=== PATIENT | female | born 1975 | race Caucasian/White ===

== ENCOUNTER 2016-06-23 14:57 | Emergency (ER) | payer MEDICAID ==
[2016-06-23 15:21] VITALS: BP 141/85
[2016-06-23] MEDS ORDERED: DIPHENHYDRAMINE HCL 50 MG CAPSULE PO ONE (15:55)
[2016-06-23] MEDS ORDERED: PROCHLORPERAZINE MALEATE 10 MG TABLET PO ONE (15:55)
[2016-06-23] MEDS ORDERED: KETOROLAC TROMETHAMINE 60 MG/2 ML SDV IM ONE (15:55)
--- NOTE | 2016-06-23 15:57 | ER Document Report ---
ED Medical Screen (RME) - General Chief Complaint: Headache Stated Complaint: HEADACHE Notes: This 41-year-old female patient comes in with him complaining of waking up this morning with blurred vision and her vision was shaky she demonstrates this by moving her hands up and down in front of her eyes. She feels weak. She developed a headache sometime after noon while she was at work. She states she feels weird, not right. 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 She is on chronic pain management and takes Percocet 10 mg 4 times a day for back pain and leg pain. She has never had migraine headache that she knows of. Physical exam shows this to be more of a posterior cervical muscle and skull cap distribution muscle tension headache. TRAVEL OUTSIDE OF THE [place] IN LAST 30 DAYS: No - Related Data Allergies/Adverse Reactions: No Known Allergies Allergy (Verified 06/23/16 15:18) Home Medications: Current Home Medications Gabapentin [Gabapentin] 300 mg PO TID 06/23/16 [History] Omeprazole [Omeprazole] 40 mg PO DAILY 06/23/16 [History] Oxycodone HCl/Acetaminophen [Percocet 10-325 Mg Tablet] 1 each PO Q6 PRN [History] Promethazine HCl 25 mg PO Q8H PRN 06/23/16 [History] Past Medical History - Past Medical History Cardiac Medical History: Reports: Hx Hypertension Pulmonary Medical History: Reports: Hx Asthma, Hx Bronchitis, Hx COPD Endocrine Medical History: Reports: Hx Diabetes Mellitus Type 2 Renal/ Medical History: Reports: Hx Kidney Stones - 2007. Denies: Hx Peritoneal Dialysis Musculoskeltal Medical History: Reports Hx Musculoskeletal Trauma Skin Medical History: Reports Hx Cellulitis, Reports Hx MRSA Psychiatric Medical History: Reports: Hx Anxiety Infectious Medical History: Reports: Hx MRSA Past Surgical History: Reports: Hx Adenoidectomy, Hx Section, Hx Cholecystectomy, Hx Dilation and Curettage, Hx Kidney (Renal Surgery) - Lithotripsy 11/26, Hx Tonsillectomy, Hx Tubal Ligation, Hx Urinary Tract Surgery - Bladder sling - Immunizations Immunizations up to date: Yes Hx Diphtheria, Pertussis, Tetanus Vaccination: Yes - 2007 Physical Exam - Vital signs Vitals: Temp Pulse Resp BP Pulse Ox 98.6 F 96 18 141/85 H 96 06/23/16 15:19 06/23/16 15:19 06/23/16 15:19 06/23/16 15:19 06/23/16 15:19 Course - Vital Signs Vital signs: Temp Pulse Resp BP Pulse Ox 98.6 F 96 18 141/85 H 96 06/23/16 15:19 06/23/16 15:19 06/23/16 15:19 06/23/16 15:19 06/23/16 15:19
--- NOTE | 2016-06-23 16:08 | ER Document Report ---
ED Headache - General Chief Complaint: Headache Stated Complaint: HEADACHE Mode of Arrival: Ambulatory Information source: Patient TRAVEL OUTSIDE OF THE [place] IN LAST 30 DAYS: No - HPI Patient complains to provider of: Headache Patient reports: No: Brain neoplasm, Congenital anomally, Frequent migraines, Hx chronic headaches, Occasional migraines, Prior CVA, Prior neurologic eval, Prior hemorrhage, Prior TBI, [employer] Shunt Onset: This morning Onset was: Abrupt. denies: Thunderclap Timing: Better - INTERMITTENTLY Quality of pain: Dull Severity: Moderate Context: denies: CO exposure, Head injury, Insect bite, Meningitis exposure, Tick bite Preceding symptoms: Visual disturbance - BLURRED, SHIMMERING Associated symptoms: Trouble walking - CHRONIC, H/O TRANSVERSE MYELITIS, NO WORSE THAN USUAL. denies: Lightheaded, Memory loss, Photophobia, Speech problems, Stiff neck Exacerbated by: denies: Light, Noise, Movement, Position Similar symptoms previously: No Recently seen / treated by doctor: No - Related Data Allergies/Adverse Reactions: No Known Allergies Allergy (Verified 06/23/16 15:18) Home Medications: Current Home Medications Gabapentin [Gabapentin] 300 mg PO TID 06/23/16 [History] Omeprazole [Omeprazole] 40 mg PO DAILY 06/23/16 [History] Oxycodone HCl/Acetaminophen [Percocet 10-325 Mg Tablet] 1 each PO Q6 PRN [History] Promethazine HCl 25 mg PO Q8H PRN 06/23/16 [History] Past Medical History - General Information source: Patient - Social History Smoking Status: Unknown if Ever Smoked Frequency of alcohol use: Rare Drug Abuse: None Family History: Arthritis, CAD, CVA, DM, Hyperlipidemia, Hypertension Patient has suicidal ideation: No Patient has homicidal ideation: No - Past Medical History Cardiac Medical History: Reports: Hx Hypertension Pulmonary Medical History: Reports: Hx Asthma, Hx Bronchitis, Hx COPD Endocrine Medical History: Reports: Hx Diabetes Mellitus Type 2 Renal/ Medical History: Reports: Hx Kidney Stones - 2007. Denies: Hx Peritoneal Dialysis Musculoskeltal Medical History: Reports Hx Musculoskeletal Trauma Skin Medical History: Reports Hx Cellulitis, Reports Hx MRSA Psychiatric Medical History: Reports: Hx Anxiety Infectious Medical History: Reports: Hx MRSA Past Surgical History: Reports: Hx Adenoidectomy, Hx Section, Hx Cholecystectomy, Hx Dilation and Curettage, Hx Kidney (Renal Surgery) - Lithotripsy 11/26, Hx Tonsillectomy, Hx Tubal Ligation, Hx Urinary Tract Surgery - Bladder sling - Immunizations Immunizations up to date: Yes Hx Diphtheria, Pertussis, Tetanus Vaccination: Yes - 2007 Physical Exam - Vital signs Vitals: Temp Pulse Resp BP Pulse Ox 98.6 F 96 18 141/85 H 96 06/23/16 15:19 06/23/16 15:19 06/23/16 15:19 06/23/16 15:19 06/23/16 15:19 Interpretation: Hypertensive Course - Re-evaluation Re-evalutation: 06/23/16 18:08 Patient reports headache modestly improved. Results of CT scan discussed. - Vital Signs Vital signs: Temp Pulse Resp BP Pulse Ox 98.6 F 96 18 141/85 H 96 06/23/16 15:19 06/23/16 15:19 06/23/16 15:19 06/23/16 15:19 06/23/16 15:19 - Diagnostic Test Radiology reviewed: Image reviewed, Reports reviewed Discharge - Discharge Clinical Impression: Head ache Qualifiers: Headache type: unspecified Headache chronicity pattern: acute headache Intractability: not intractable Qualified Code(s): R51 - Headache Condition: Stable Disposition: HOME, SELF-CARE Instructions: Headache ([facility]), Use of Diphenhydramine, Oral Narcotic Medication ([facility]) Additional Instructions: REST, DRINK PLENTY OF FLUIDS. YOU MAY TAKE TYLENOL FOR PAIN IF NEEDED, OR FIORICET FOR MORE SEVERE PAIN. FOLLOW UP WITH YOUR PRIMARY CARE PROVIDER IF NOT IMPROVED IN 24-48 HRS. RETURN TO E.R. IF YOU GET WORSE, ANY TIME. Prescriptions: Butalb/Acetaminophen/Caffeine [Fioricet (50-325-40 mg) Tablet] 1 - 2 tab PO Q4H PRN #20 each PRN Reason: For Headache
== END 2016-06-23 18:51 | disposition home or self-care (01) ==
LOC: ER 14:57
DX: R51 Headache (principal); I10 Essential (primary) hypertension; J44.9 Chronic obstructive pulmonary disease, unspecified; E11.9 Type 2 diabetes mellitus without complications; Z87.442 Personal history of urinary calculi; Z86.14 Personal history of Methicillin resistant Staphylococcus aureus infection; Z90.49 Acquired absence of other specified parts of digestive tract; Z98.51 Tubal ligation status
CPT/HCPCS: 99283; 96372; 70450; J3490; J1885; S0183

== ENCOUNTER 2016-09-16 18:01 | Emergency (ER) | payer MEDICAID ==
[2016-09-16 18:14] VITALS: BP 169/100
[2016-09-16] MEDS ORDERED: ACETAMINOPHEN 325 MG TABLET PO ONE (19:07)
--- NOTE | 2016-09-16 19:13 | ER Document Report ---
ED Respiratory Problem - General Chief Complaint: Ear Pain Stated Complaint: COUGH,CHEST CONGESTION Time Seen by Provider: 09/16/16 18:44 Mode of Arrival: Ambulatory Information source: Patient Notes: 41-year-old female presents to ED for cough congestion sore throat bilateral ear pain since Tuesday. She states she has severe pain with cough bilateral ear pain runny nose cough in the urine sputum. She denies any fevers. Skin in full sentences with no acute distress noted. TRAVEL OUTSIDE OF THE [place] IN LAST 30 DAYS: No - HPI Patient complains to provider of: Cough, Other - Runny nose cough congestion bilateral ear pain Onset: Other - And Initiating Event: URI Quality of pain: Burning, Other - sore throat Severity: Moderate Pain Level: 4 Cough: Productive Sputum amount: Moderate Sputum color: Green Sputum consistency: Thick At home treatment: Bronchodilators Associated symptoms: Chest pain/discomfort, Congestion, Cough, Earache, PND, Runny nose, Sinus pain/pressure, Short of breath, Sore Throat. denies: Fever Similar symptoms previously: Yes Recently seen / treated by doctor: No - Related Data Allergies/Adverse Reactions: No Known Allergies Allergy (Verified 09/16/16 18:12) Past Medical History - General Information source: Patient - Social History Smoking Status: Current Every Day Smoker Cigarette use (# per day): Yes - ppd Chew tobacco use (# tins/day): No Smoking Education Provided: Yes - less than 2 min Frequency of alcohol use: None Drug Abuse: None Occupation: none Lives with: Family Family History: Arthritis, CAD, CVA, DM, Hyperlipidemia, Hypertension. denies: Malignancy, Thyroid Disfunction Patient has suicidal ideation: No Patient has homicidal ideation: No - Past Medical History Cardiac Medical History: Reports: Hx Hypertension Pulmonary Medical History: Reports: Hx Asthma, Hx Bronchitis, Hx COPD EENT Medical History: Reports: None Neurological Medical History: Reports: None Endocrine Medical History: Reports: Hx Diabetes Mellitus Type 2 Renal/ Medical History: Reports: Hx Kidney Stones - 2008 Malignancy Medical History: Reports: None GI Medical History: Reports: None Musculoskeltal Medical History: Reports Hx Musculoskeletal Deformity, Reports Hx Musculoskeletal Trauma Skin Medical History: Reports Hx Cellulitis, Reports Hx MRSA Psychiatric Medical History: Reports: Hx Anxiety Traumatic Medical History: Reports: None Infectious Medical History: Reports: Hx MRSA Past Surgical History: Reports: Hx Adenoidectomy, Hx Section, Hx Cholecystectomy, Hx Dilation and Curettage, Hx Kidney (Renal Surgery) - Lithotripsy 11/26, Hx Tonsillectomy, Hx Tubal Ligation, Hx Urinary Tract Surgery - Bladder sling - Immunizations Immunizations up to date: Yes Hx Diphtheria, Pertussis, Tetanus Vaccination: Yes - 2007 Review of Systems - Review of Systems Constitutional: Recent illness EENT: Ear pain, Nose discharge, Sinus discharge, Throat pain Cardiovascular: No symptoms reported Respiratory: Cough, Short of breath, Sputum Gastrointestinal: No symptoms reported Genitourinary: No symptoms reported Female Genitourinary: No symptoms reported Musculoskeletal: No symptoms reported Skin: No symptoms reported Hematologic/Lymphatic: No symptoms reported Neurological/Psychological: No symptoms reported -: Yes All other systems reviewed and negative Physical Exam - Vital signs Vitals: Temp Pulse Resp BP Pulse Ox 98.4 F 96 22 H 169/100 H 96 09/16/16 18:12 09/16/16 18:12 09/16/16 18:12 09/16/16 18:12 09/16/16 18:12 Interpretation: Hypertensive - General General appearance: Appears well, Alert - HEENT Head: Normocephalic, Atraumatic Eyes: Normal Pupils: PERRL Ears: Normal External canal: Normal Tympanic membrane: Normal Sinus: Normal Nasal: Purulent discharge, Swelling Mouth/Lips: Normal Mucous membranes: Normal Pharynx: Erythema, Post nasal drainage Neck: Normal - Respiratory Respiratory status: No respiratory distress Chest status: Nontender, Pain with cough Breath sounds: Productive cough. No: Rales, Rhonchi, Stridor, Wheezing Chest palpation: Normal - Cardiovascular Rhythm: Regular Heart sounds: Normal auscultation Murmur: No - Abdominal Inspection: Normal Distension: No distension Bowel sounds: Normal Tenderness: Nontender Organomegaly: No organomegaly - Back Back: Normal, Nontender - Extremities General upper extremity: Normal inspection, Nontender, Normal color, Normal ROM , Normal temperature General lower extremity: Normal inspection, Nontender, Normal color, Normal ROM , Normal temperature, Normal weight bearing. No: Margo's sign - Neurological Neuro grossly intact: Yes Cognition: Normal Orientation: AAOx4 Collins Coma Scale Eye Opening: Spontaneous Collins Coma Scale Verbal: Oriented Collins Coma Scale Motor: Obeys Commands Collins Coma Scale Total: 15 Speech: Normal Motor strength normal: LUE, RUE, LLE, RLE Sensory: Normal - Psychological Associated symptoms: Normal affect, Normal mood - Skin Skin Temperature: Warm Skin Moisture: Dry Skin Color: Normal Course - Re-evaluation Re-evalutation: 09/16/16 20:31 Chest x-ray with patient and written report given to patient. Patient will be discharged home to follow-up with primary doctor. 09/16/16 20:32 Blood pressure with patient and the need to follow-up with her primary doctor for the blood pressure - Vital Signs Vital signs: Temp Pulse Resp BP Pulse Ox 98.4 F 96 22 H 169/100 H 96 09/16/16 18:12 09/16/16 18:12 09/16/16 18:12 09/16/16 18:12 09/16/16 18:12 - Diagnostic Test Radiology reviewed: Image reviewed, Reports reviewed Discharge - Discharge Clinical Impression: chest wall pain from cough, Otalgia of both ears URI (upper respiratory infection) Qualifiers: URI type: unspecified URI Qualified Code(s): J06.9 - Acute upper respiratory infection, unspecified Condition: Stable Disposition: HOME, SELF-CARE Additional Instructions: UPPER RESPIRATORY ILLNESS: You have a viral infection of the respiratory passages -- a "cold." This common infection causes nasal congestion, drainage, and often sore throat and cough. It is highly contagious. The disease usually lasts about 10 to 14 days. There is no "cure" for the viral infection -- it must run its course. If there is a complication, such as bacterial infection in the nose, sinuses, middle ear, or bronchial tubes, antibiotics may be required. The antibiotics won't affect the virus. Drink plenty of fluids. A humidifier may help. An expectorant medication or decongestant may make you more comfortable. Use acetaminophen or ibuprofen for fever or aches. See the doctor if fever persists over two days, if there is any significant worsening of your symptoms, or if you simply fail to improve as expected. CHEST WALL PAIN: Your chest pain may be coming from the chest wall. This is often caused by straining the muscles or joints in the chest during physical activity, direct trauma, coughing, or vigorous vomiting. Persons with arthritis are especially prone to this type of pain, due to inflammation of the cartilage joints near the breast bone. Occasionally, no cause can be found. Rest from strenuous physical activity. This kind of chest pain is usually made worse by movement of the chest. Depending on the symptoms, we may prescribe medicine for pain, muscle relaxation, and antiinflammatory effects. If the pain is new, and seems to be due to muscle strain, cold packs can help. Otherwise, apply gentle warmth to the painful area for 15 minutes every hour or two. You should call contact the doctor immediately if things change. Further evaluation is needed if you develop a fever or cough, if the nature of the pain changes, or if you become short of breath. USE OF ACETAMINOPHEN (Tylenol): Acetaminophen may be taken for pain relief or fever control. It's much safer than aspirin, offering a wider range of "safe" dosages. It is safe during . Some brand names are Tylenol, Panadol, Datril, Anacin 3, Tempra, and Liquiprin. Acetaminophen can be repeated every four hours. The following are maximum recommended dosages: >89 pounds or adults 650 mg to 900 mg Acetaminophen can be repeated every four hours. Maximum dose not to exceed 4000 mg a day. SMOKING: If you smoke, you should stop smoking. The tar and chemicals in cigarette smoke are harmful. Smoking has been shown to cause: emphysema chronic bronchitis lung cancer mouth and throat cancer stomach and pancreas cancer premature aging defects In addition, smoking increases ear and lung infections in children of smokers. FOLLOW-UP CARE: If you have been referred to a physician for follow-up care, call the physician s office for an appointment as you were instructed or within the next two days. If you experience worsening or a significant change in your symptoms, notify the physician immediately or return to the Emergency Department at any time for re-evaluation. Forms: Elevated Blood Pressure, Smoking Cessation Education
--- NOTE | 2016-09-16 19:24 | RADIOLOGY REPORT (SQ) ---
EXAM DESCRIPTION: CHEST PA/LAT COMPLETED DATE/TIME: 09/16/2016 7:15 pm REASON FOR STUDY: cough congestion COMPARISON: 01/29/2016. EXAM PARAMETERS: NUMBER OF VIEWS: two views TECHNIQUE: Digital Frontal and Lateral radiographic views of the chest acquired. RADIATION DOSE: NA LIMITATIONS: none FINDINGS: LUNGS AND PLEURA: No opacities, masses or pneumothorax. No pleural effusion. MEDIASTINUM AND HILAR STRUCTURES: No masses or contour abnormalities. HEART AND VASCULAR STRUCTURES: Heart normal size. No evidence for failure. BONES: No acute findings. HARDWARE: None in the chest. OTHER: No other significant finding. IMPRESSION: NO SIGNIFICANT RADIOGRAPHIC FINDING IN THE CHEST. TECHNICAL DOCUMENTATION: JOB ID: [id number] [employer]- All Rights Reserved
== END 2016-09-16 20:46 | disposition home or self-care (01) ==
LOC: ER 18:01
DX: J06.9 Acute upper respiratory infection, unspecified (principal); J02.9 Acute pharyngitis, unspecified; H92.03 Otalgia, bilateral; J44.9 Chronic obstructive pulmonary disease, unspecified; R05 Cough; R07.89 Other chest pain; R09.89 Other specified symptoms and signs involving the circulatory and respiratory systems; R06.02 Shortness of breath; E11.9 Type 2 diabetes mellitus without complications; I10 Essential (primary) hypertension; F17.210 Nicotine dependence, cigarettes, uncomplicated; Z71.6 Tobacco abuse counseling; Z86.14 Personal history of Methicillin resistant Staphylococcus aureus infection
CPT/HCPCS: 99283; 71020; J3490

== ENCOUNTER 2017-02-23 01:31 | Emergency (ER) | payer MEDICAID ==
[2017-02-23] MEDS ORDERED: ONDANSETRON 4 MG TAB.RAPDIS PO ONE (03:30)
[2017-02-23 03:36] LABS: APPEARANCE,URINE SLIGHTLY-CLOUDY; BILIRUBIN,URINE NEGATIVE (NEGATIVE); GLUCOSE, URINE NEGATIVE (NEGATIVE); KETONES,URINE NEGATIVE (NEGATIVE); LEUKOCYTE ESTERASE,URINE NEGATIVE (NEGATIVE); NITRITE,URINE NEGATIVE (NEGATIVE); PROTEIN,URINE NEGATIVE (NEGATIVE); URINE SPECIFIC GRAVITY 1.019; UROBILINOGEN,URINE NEGATIVE mg/dL (<2.0)
[2017-02-23 03:37] LABS: RBC,URINE 0-1 /HPF; WBC,URINE 0-1 /HPF
--- NOTE | 2017-02-23 03:52 | ER Document Report ---
ED GI/ - General TRAVEL OUTSIDE OF THE [place] IN LAST 30 DAYS: No <SACHA KIMBALL - Last Filed: 02/23/17 07:17> <ZOYA SMITH - Last Filed: 02/23/17 09:04> - General Chief Complaint: Abdominal Pain Stated Complaint: ABDOMINAL PAIN Time Seen by Provider: 02/23/17 03:24 Notes: Patient is a 41 year old female that comes to the ED for chief complaint of nausea and lower abdominal pain. She states that she started feeling nauseated yesterday, started feeling some abdominal pain last night, this worsened today. She denies vomiting, she has had normal bowel movements, she denies dysuria, vaginal bleeding or discharge. She states she feels some radiation around to her lower back. Past medical history of kidney stones, tubal ligation, cholecystectomy, hypertension, ovarian cysts. (SACHA KIMBALL) - Related Data Allergies/Adverse Reactions: No Known Allergies Allergy (Verified 02/23/17 04:07) Past Medical History - General Information source: Patient - Social History Smoking Status: Never Smoker Frequency of alcohol use: None Drug Abuse: None Lives with: Family Family History: Arthritis, CAD, CVA, DM, Hyperlipidemia, Hypertension. denies: Malignancy, Thyroid Disfunction Patient has suicidal ideation: No Patient has homicidal ideation: No - Past Medical History Cardiac Medical History: Reports: Hx Hypertension Pulmonary Medical History: Reports: Hx Asthma, Hx Bronchitis, Hx COPD Endocrine Medical History: Reports: Hx Diabetes Mellitus Type 2 Renal/ Medical History: Reports: Hx Kidney Stones - 2007. Denies: Hx Peritoneal Dialysis Musculoskeltal Medical History: Reports Hx Musculoskeletal Deformity, Reports Hx Musculoskeletal Trauma Skin Medical History: Reports Hx Cellulitis, Reports Hx MRSA Psychiatric Medical History: Reports: Hx Anxiety Infectious Medical History: Reports: Hx MRSA Past Surgical History: Reports: Hx Adenoidectomy, Hx Section, Hx Cholecystectomy, Hx Dilation and Curettage, Hx Kidney (Renal Surgery) - Lithotripsy 11/26, Hx Tonsillectomy, Hx Tubal Ligation, Hx Urinary Tract Surgery - Bladder sling - Immunizations Immunizations up to date: Yes Hx Diphtheria, Pertussis, Tetanus Vaccination: Yes - 2007 <SACHA KIMBALL - Last Filed: 02/23/17 07:17> Review of Systems - Review of Systems Constitutional: No symptoms reported EENT: No symptoms reported Cardiovascular: No symptoms reported Respiratory: No symptoms reported Gastrointestinal: See HPI Genitourinary: See HPI Female Genitourinary: See HPI Musculoskeletal: No symptoms reported Skin: No symptoms reported Hematologic/Lymphatic: No symptoms reported Neurological/Psychological: No symptoms reported <KRISTANVICENTEROCSACHA Iban Filed: 02/23/17 07:17> Physical Exam - Vital signs Interpretation: Normal - General General appearance: Appears well, Alert In distress: None - HEENT Head: Normocephalic, Atraumatic Eyes: Normal Pupils: PERRL - Respiratory Respiratory status: No respiratory distress Chest status: Nontender Breath sounds: Normal. No: Decreased air movement, Wheezing Chest palpation: Normal - Cardiovascular Rhythm: Regular. No: Tachycardia Heart sounds: Normal auscultation, S1 appreciated, S2 appreciated Murmur: No - Abdominal Inspection: Normal Distension: No distension. No: Distended Bowel sounds: Normal Tenderness: Tender - There is tenderness in the right lower quadrant, right suprapubic and right pelvic area. There is moderate tenderness without specific guarding, no rebound tenderness, no specific McBurney's point tenderness. Organomegaly: No organomegaly - Back Back: Normal, Nontender. No: Tender, CVA tenderness - Extremities General upper extremity: Normal inspection, Nontender, Normal strength, Normal temperature General lower extremity: Normal inspection, Nontender, Normal strength, Normal temperature - Neurological Neuro grossly intact: Yes Cognition: Normal Orientation: AAOx4 [place] Coma Scale Eye Opening: Spontaneous Isra Coma Scale Verbal: Oriented [place] Coma Scale Motor: Obeys Commands Isra Coma Scale Total: 15 Speech: Normal Motor strength normal: LUE, RUE, LLE, RLE Sensory: Normal - Psychological Associated symptoms: Normal affect, Normal mood - Skin Skin Temperature: Warm Skin Moisture: Dry Skin Color: Normal <ROC KIMBALLAN Iban Filed: 02/23/17 07:17> - Vital signs Vitals: Temp Pulse Resp BP Pulse Ox 98.3 F 84 16 137/72 H 99 02/23/17 01:59 02/23/17 01:59 02/23/17 01:59 02/23/17 01:59 02/23/17 01:59 Course - Laboratory Result Diagrams: 02/23/17 03:45 02/23/17 03:45 <ROC KIMBALLAN Iban Danny Filed: 02/23/17 07:17> - Laboratory Result Diagrams: 02/23/17 03:45 02/23/17 03:45 <ZOYA SMITH - Last Filed: 02/23/17 09:04> - Re-evaluation Re-evalutation: On examination there is right lower quadrant and mid lower quadrant tenderness, appears to be more pelvic than abdominal in nature, patient is obese and this limits the exam slightly. She is nondistressed. There is no significant guarding or rebound tenderness. No flank pain. At this time I suspect a pelvic source, ultrasound will be performed to rule out large ovarian cyst. Lab work pending. Lab work shows leukocytosis at 20,000 with no bandemia or significant shift. Urinalysis unremarkable, chemistry unremarkable, hCG is negative. Ultrasound showing no acute abnormality. Patient reexamined, she still has right lower tenderness, still appears to be lower than McBurney's point although this is still limited by patient's size. Because of ongoing pain, developing pain since yesterday, leukocytosis, normal ultrasound discussed with patient. CAT scan will be performed to rule out appendicitis or other acute abdominal abnormality. Patient has been kept n.p.o., she states she has not really eaten anything today because of nausea, not had anything since this morning ( yesterday morning). 02/23/17 07:10 Patient introduced to Pita Smith PA-C pending results and disposition. Patient continues to be well-appearing. (SACHA KIMBALL) 02/23/17 09:01 CT scan abd/pelv was unremarkable. Pt states she is feeling better. Exam unremarkable. I will send her home with a norco dispense pack and zofran with strict return precautions and obs for appendicitis. Pt to have reevaluation with PCM in 3-5 days Consider consult with narcotics and/or vice detective Return to the ED with any worsening/concerning symptoms otherwise as reviewed in discharge. Patient is in agreement. (ZOYA SMITH) - Vital Signs Vital signs: Temp Pulse Resp BP Pulse Ox 98.1 F 84 18 125/65 96 02/23/17 06:00 02/23/17 01:59 02/23/17 08:19 02/23/17 08:19 02/23/17 08:19 - Laboratory Laboratory results interpreted by me: 02/23/17 03:45 WBC 20.7 H RDW 15.5 H Abs Neuts (Manual) 12.8 H Abs Lymphs (Manual) 6.2 H Discharge <SACHA KIMABLL - Last Filed: 02/23/17 07:17> <ZOYA SMITH - Last Filed: 02/23/17 09:04> - Discharge Clinical Impression: Unspecified abdominal pain Qualifiers: Abdominal location: lower abdomen, unspecified Qualified Code(s): R10.30 - Lower abdominal pain, unspecified Condition: Stable Disposition: HOME, SELF-CARE Instructions: Abdominal Pain ([facility]), Oral Narcotic Medication ([facility]), Observation for Appendicitis ([facility]) Additional Instructions: Maintain adequate fluid and food intake [place] diet ([facility] Bananas, rice, apples, toast, etc Zofran as needed tylenol if needed Monitor for any worsening symptoms Make sure you are staying hydrated enough to urinate and have normal BM's Recheck with your PCM in 3-5 days Consider consult with Gastroenterology/hematology/general surgery for ongoing/ worsening symptoms Return to the ED with any worsening symptoms and/or development of fever, headache, chest pain, palpitations, syncope, shortness of breath, trouble breathing, abdominal pain, n/v/d, blood in stool/urine, weakness, or other worsening symptoms that are concerning to you. Prescriptions: Ondansetron [Zofran Odt 4 mg Tablet] 1 - 2 tab PO Q4H PRN #15 tab.rapdis PRN Reason: For Nausea/Vomiting Referrals: RIGO SARAH DO [Primary Care Provider] - Follow up in 3-5 days ELE EWING MD [ACTIVE STAFF] - Follow up as needed
[2017-02-23 04:03] LABS: HEMATOCRIT 42.5 % (36.0-47.0); HEMOGLOBIN 14.5 g/dL (12.0-15.5); MEAN CORPUSCULAR HEMOGLOBIN 30.2 pg (27.0-33.4); MEAN CORPUSCULAR HGB CONC 34.1 g/dL (32.0-36.0); MEAN CORPUSCULAR VOLUME 89 fl (80-97); RED CELL DISTRIBUTION WIDTH 15.5 % (11.5-14.0); WHITE BLOOD COUNT 20.7 10^3/uL (4.0-10.5)
[2017-02-23 04:07] LABS: ALANINE AMINOTRANSFERASE 28 U/L (9-52); ALBUMIN 3.8 g/dL (3.5-5.0); ALKALINE PHOSPHATASE 96 U/L (38-126); ANION GAP 12 (5-19); ASPARTATE AMINO TRANSFERASE 20 U/L (14-36); BILIRUBIN,DIRECT 0.2 mg/dL (0.0-0.4); BILIRUBIN,TOTAL 0.3 mg/dL (0.2-1.3); BLOOD UREA NITROGEN 14 mg/dL (7-20); CALCIUM 9.1 mg/dL (8.4-10.2); CARBON DIOXIDE 25 mmol/L (22-30); CHLORIDE 103 mmol/L (98-107); CREATININE RESULT 0.74 mg/dL (0.52-1.25); GLUCOSE 102 mg/dL (75-110); POTASSIUM 4.2 mmol/L (3.6-5.0); SODIUM 139.9 mmol/L (137-145); TOTAL PROTEIN 6.7 g/dL (6.3-8.2)
[2017-02-23 04:32] LABS: ABSOLUTE EOSINOPHILS# (MANUAL) 0.4 10^3/uL (0.0-0.6); ANISOCYTOSIS SLIGHT; BASOPHILS % (MANUAL) 0 % (0-2); EOSINOPHILS % (MANUAL) 2 % (0-6); LYMPHOCYTES % (MANUAL) 30 % (13-45); OVALOCYTES SLIGHT; POIKILOCYTOSIS SLIGHT; TOTAL CELLS COUNTED 100; TOXIC GRANULATION SLIGHT
[2017-02-23 04:33] LABS: TEAR DROP CELLS SLIGHT
--- NOTE | 2017-02-23 04:56 | RADIOLOGY REPORT (SQ) ---
EXAM DESCRIPTION: U/S NON OB PEL TV W/DOPPLER CLINICAL HISTORY: 41 years, Female, right pelvic pain, nausea, hx ovarian cysts COMPARISON: 12/25/2014. TECHNIQUE: Transvaginal. LIMITATIONS: None. FINDINGS: 9.7 cm uterus with likely anteroinferior scar, 1.5 cm endometrial stripe thickness, nabothian cysts, 3.1 cm cervical length, 2.9 cm right ovary and left ovarian fossa appear otherwise normal size, shape, echotexture, and vascularity. No significant free fluid. Left ovary is not directly visualized. IMPRESSION: No acute findings. 2010 [employer]- All Rights Reserved
[2017-02-23] MEDS ORDERED: NORMAL SALINE 1000 ML 1,000 ML IV ONE (05:22)
[2017-02-23] MEDS ORDERED: MORPHINE SULFATE 10 MG/ML INJ IV ONE ×2 (05:23→07:43)
[2017-02-23] MEDS ORDERED: ONDANSETRON HCL INJ/PF 4 MG/2 ML SDV IV ONE (06:21)
--- NOTE | 2017-02-23 08:21 | RADIOLOGY REPORT (SQ) ---
EXAM DESCRIPTION: CT ABD/PELVIS WITH IV ORAL COMPLETED DATE/TIME: 02/23/2017 8:07 am REASON FOR STUDY: RLQ pain, leukocytosis, nausea COMPARISON: 2010. Pelvic ultrasound from earlier. TECHNIQUE: CT scan of the abdomen and pelvis performed with intravenous and oral contrast using burke roberto scanning technique with dynamic intravenous contrast injection. Images reviewed with lung, soft t issue, and bone windows. Reconstructed coronal and sagittal MPR images reviewed. Delayed images for e valuation of the urinary system also acquired. All images stored on PACS. All CT scanners at this facility use dose modulation, iterative reconstruction, and/or weight based d osing when appropriate to reduce radiation dose to as low as reasonably achievable (ALARA). [facility]: Dose Right [facility]: CareDose [facility]: Dose Right [facility]: Teradose 4D [facility]: [employer] CONTRAST TYPE AND DOSE: contrast/concentration: Isovue 370.00 mg/ml; Total Contrast Delivered: 100.0 ml; Total Saline Delivered: 45.0 ml RENAL FUNCTION: Creatinine 0.74 RADIATION DOSE: . LIMITATIONS: None. FINDINGS: LOWER CHEST: No significant findings. No nodules or infiltrates. LIVER: Normal size. No masses. No dilated ducts. SPLEEN: Normal size. No focal lesions. PANCREAS: No masses. No significant calcifications. No adjacent inflammation or peripancreatic fluid collections. Pancreatic duct not dilated. GALLBLADDER: Surgically absent. No duct dilatation evident. ADRENAL GLANDS: No significant masses or asymmetry. RIGHT KIDNEY AND URETER: No solid masses. No significant calcification. No hydronephrosis or hydroure ter. LEFT KIDNEY AND URETER: No solid masses. No significant calcification. No hydronephrosis or hydrouret er. AORTA AND VESSELS: No aneurysm. No dissection. Renal arteries, SMA, celiac without stenosis. RETROPERITONEUM: No retroperitoneal adenopathy, hemorrhage or masses. BOWEL AND PERITONEAL CAVITY: No obstruction. No visualized masses. No free fluid. No inflammatory ch anges or thickening of bowel wall. APPENDIX: Normal. PELVIS: No significant masses. Normal bladder. No free fluid. ABDOMINAL WALL: No masses. No hernias. BONES: Lower lumbar spondylosis. Sclerosis along the SI joints, presumably degenerative. No ankylos is or erosions. OTHER: No other significant finding. IMPRESSION: 1. No acute or suspicious abdominopelvic abnormality. Right lower quadrant structures l ook normal, including the appendix. TECHNICAL DOCUMENTATION: JOB ID: [id number] Quality ID # [id number]: Final reports with documentation of one or more dose reduction techniques (e.g., Au tomated exposure control, adjustment of the mA and/or kV according to patient size, use of iterative reconstruction technique) 2010 [employer]- All Rights Reserved
[2017-02-23 08:23] VITALS: BP 125/65
[2017-02-23] MEDS ORDERED: HYDROCODONE/ACETAMINOPHEN 5-325 MG 6 TAB/DSPK PO PRN (09:03)
== END 2017-02-23 09:16 | disposition home or self-care (01) ==
LOC: ER 01:31
DX: R10.30 Lower abdominal pain, unspecified (principal); R11.0 Nausea; M54.5 Low back pain
CPT/HCPCS: 96376; 99284; 96361; 96374; 96375; 36415; 85025; 81025; 80053; 81001; 76830; 93976; 74177; S0119; J2270; J2405; J7030

== ENCOUNTER 2017-05-20 21:51 | Emergency (ER) | payer MEDICAID ==
[2017-05-20 22:46] LABS: APPEARANCE,URINE SLIGHTLY-CLOUDY; BILIRUBIN,URINE NEGATIVE (NEGATIVE); COLOR,URINE YELLOW; GLUCOSE, URINE NEGATIVE (NEGATIVE); KETONES,URINE NEGATIVE (NEGATIVE); LEUKOCYTE ESTERASE,URINE NEGATIVE (NEGATIVE); NITRITE,URINE NEGATIVE (NEGATIVE); PROTEIN,URINE NEGATIVE (NEGATIVE); URINE SPECIFIC GRAVITY 1.019; UROBILINOGEN,URINE NEGATIVE mg/dL (<2.0)
--- NOTE | 2017-05-21 00:09 | ER Document Report ---
ED General - General Chief Complaint: Flank Pain Stated Complaint: LOWER BACK PAIN Time Seen by Provider: 05/20/17 22:59 Notes: Patient is a 42-year-old female who presents with progressively worsening right lower back and right lower quadrant abdominal pain with associated urinary frequency and urgency. Patient states that this feels similar to when she has had urinary tract infections in the past although she states that the pain is not as severe when she urinates as to her typical symptoms. She notes that she has been trying Tylenol and ibuprofen at home with only minimal improvement of her symptoms. Nothing seems to worsen her symptoms. She has not seen her primary care doctor regarding today's concerns. She denies any fever, vomiting , diarrhea, vaginal bleeding or discharge. TRAVEL OUTSIDE OF THE [place] IN LAST 30 DAYS: No - Related Data Allergies/Adverse Reactions: No Known Allergies Allergy (Verified 02/23/17 04:07) Past Medical History - General Information source: Patient - Social History Smoking Status: Current Every Day Smoker Frequency of alcohol use: None Drug Abuse: None Lives with: Spouse/Significant other Family History: Arthritis, CAD, CVA, DM, Hyperlipidemia, Hypertension. denies: Malignancy, Thyroid Disfunction Patient has suicidal ideation: No Patient has homicidal ideation: No - Past Medical History Cardiac Medical History: Reports: Hx Hypertension Pulmonary Medical History: Reports: Hx Asthma, Hx Bronchitis, Hx COPD Endocrine Medical History: Reports: Hx Diabetes Mellitus Type 2 Renal/ Medical History: Reports: Hx Kidney Stones - 2007. Denies: Hx Peritoneal Dialysis Musculoskeltal Medical History: Reports Hx Musculoskeletal Deformity, Reports Hx Musculoskeletal Trauma Skin Medical History: Reports Hx Cellulitis, Reports Hx MRSA Psychiatric Medical History: Reports: Hx Anxiety Infectious Medical History: Reports: Hx MRSA Past Surgical History: Reports: Hx Adenoidectomy, Hx Section, Hx Cholecystectomy, Hx Dilation and Curettage, Hx Kidney (Renal Surgery) - Lithotripsy 11/26, Hx Tonsillectomy, Hx Tubal Ligation, Hx Urinary Tract Surgery - Bladder sling - Immunizations Immunizations up to date: Yes Hx Diphtheria, Pertussis, Tetanus Vaccination: Yes - 2007 Review of Systems - Review of Systems Notes: Constitutional: Negative for fever. HENT: Negative for sore throat. Eyes: Negative for visual changes. Cardiovascular: Negative for chest pain. Respiratory: Negative for shortness of breath. Gastrointestinal: Positive for abdominal pain Genitourinary: Positive for dysuria. Musculoskeletal: Negative for back pain. Skin: Negative for rash. Neurological: Negative for headaches, weakness or numbness. 10 point ROS negative except as marked above and in HPI. Physical Exam - Vital signs Vitals: Temp Pulse Resp BP Pulse Ox 98.8 F 99 21 H 147/87 H 95 05/20/17 22:10 05/20/17 22:10 05/20/17 22:10 05/20/17 22:10 05/20/17 22:10 Interpretation: Hypertensive Notes: PHYSICAL EXAMINATION: GENERAL: Well-appearing, well-nourished and in no acute distress. HEAD: Atraumatic, normocephalic. EYES: Pupils equal round and reactive to light, extraocular movements intact, sclera anicteric, conjunctiva are normal. ENT: nares patent, oropharynx clear without exudates. Moist mucous membranes. NECK: Normal range of motion, supple without lymphadenopathy LUNGS: Breath sounds clear to auscultation bilaterally and equal. No wheezes rales or rhonchi. HEART: Regular rate and rhythm without murmurs ABDOMEN: Soft, right lower quadrant abdominal tenderness as well as suprapubic abdominal tenderness that are both mild no other localized areas of tenderness, normoactive bowel sounds. No guarding, no rebound. No masses appreciated. No CVA tenderness EXTREMITIES: Normal range of motion, no pitting or edema. No cyanosis. NEUROLOGICAL: No focal neurological deficits. Moves all extremities spontaneously and on command. PSYCH: Normal mood, normal affect. SKIN: Warm, Dry, normal turgor, no rashes or lesions noted. Course - Re-evaluation Re-evalutation: 05/21/17 00:07 Patient presents with right low back pain as well as urinary urgency as well as some mild right lower quadrant abdominal pain. Patient is overall nontoxic appearance, no acute distress, does have some mild right low back pain as well as focal right lower quadrant abdominal tenderness but no rebound or guarding. Her urinalysis is unremarkable, not consistent with urinary tract infection. I do not suspect acute pyelonephritis based on his normal urinalysis as well as the absence of fever or constitutional symptoms. Musculoskeletal strain likewise does not make sense as this would not cause both back and abdominal pain as well as urinary urgency. I am concerned about the possibility of an appendicitis given the location of the patient's pain and a localized inflammation to the low pelvis could cause urinary urgency as well as low back pain. Will therefore proceed with labs, CT scan abdomen pelvis and reassess 05/21/17 02:40 CT abdomen pelvis is unremarkable without any evidence of acute appendicitis and the appendix is well-visualized. No evidence of a perforated diverticula. Patient is a leukocytosis but review of prior laboratories does reveal that she has a chronically elevated white blood cell count very similar to today's value. The remainder of her labs are otherwise unremarkable. Symptoms have improved with treatment here in the emergency department. Given her persistent dysuria and urinary frequency, I have sent a urinary culture and will empirically treat given her degree of symptoms. At this time will discharge with return precautions and follow-up recommendations. Verbal discharge instructions given a the bedside and opportunity for questions given. Medication warnings reviewed. Patient is in agreement with this plan and has verbalized understanding of return precautions and the need for primary care follow-up in the next 24-72 hours. - Vital Signs Vital signs: Temp Pulse Resp BP Pulse Ox 98.8 F 99 21 H 147/87 H 95 05/20/17 22:10 05/20/17 22:10 05/20/17 22:10 05/20/17 22:10 05/20/17 22:10 - Laboratory Result Diagrams: 05/21/17 00:40 05/21/17 00:40 Laboratory results interpreted by me: 05/21/17 05/21/17 00:40 00:40 WBC 21.5 H RDW 16.1 H Abs Neuts (Manual) 14.8 H Absolute Eos (Manual) 0.9 H Sodium 136.3 L - Diagnostic Test Radiology reviewed: Reports reviewed Discharge - Discharge Clinical Impression: Dysuria, Right lower quadrant abdominal pain Right low back pain Qualifiers: Chronicity: acute Sciatica presence: without sciatica Qualified Code(s): M54.5 - Low back pain Condition: Good Disposition: HOME, SELF-CARE Instructions: Observation for Appendicitis ([facility]) Additional Instructions: You have been seen in the Emergency Department (ED) for abdominal pain. Your evaluation did not identify a clear cause of your symptoms but was generally reassuring. You are being treated with antibiotics given your urinary frequency. A urine culture has been sent. Please follow up with your doctor as soon as possible regarding today's emergent visit and the symptoms that are bothering you. Return to the ED if your abdominal pain worsens or fails to improve, you develop bloody vomiting, bloody diarrhea, you are unable to tolerate fluids due to vomiting, fever greater than 101, or other symptoms that concern you. Prescriptions: Cephalexin Monohydrate [Keflex 500 mg Capsule] 500 mg PO Q6H 5 Days capsule Referrals: NEEMA FALCON MD [Primary Care Provider] - Follow up as needed
[2017-05-21 00:58] LABS: HEMATOCRIT 43.1 % (36.0-47.0); HEMOGLOBIN 14.2 g/dL (12.0-15.5); MEAN CORPUSCULAR HEMOGLOBIN 28.8 pg (27.0-33.4); MEAN CORPUSCULAR VOLUME 87 fl (80-97); PLATELET COUNT 391 10^3/uL (150-450); RED BLOOD COUNT 4.95 10^6/uL (3.72-5.28); RED CELL DISTRIBUTION WIDTH 16.1 % (11.5-14.0); WHITE BLOOD COUNT 21.5 10^3/uL (4.0-10.5)
[2017-05-21] MEDS ORDERED: NORMAL SALINE 1000 ML 1,000 ML IV ONE (01:12)
[2017-05-21] MEDS ORDERED: HYDROMORPHONE HCL INJ/PF 2 MG/ML AMPULE IV ONE (01:12)
[2017-05-21 01:21] LABS: ANION GAP 8 (5-19); BLOOD UREA NITROGEN 10 mg/dL (7-20); CALCIUM 9.8 mg/dL (8.4-10.2); CARBON DIOXIDE 29 mmol/L (22-30); CHLORIDE 99 mmol/L (98-107); GLUCOSE 95 mg/dL (75-110); POTASSIUM 4.4 mmol/L (3.6-5.0); SODIUM 136.3 mmol/L (137-145)
[2017-05-21 01:30] LABS: ABSOLUTE LYMPHOCYTES# (MANUAL) 4.7 10^3/uL (0.5-4.7); ABSOLUTE MONOCYTES # (MANUAL) 1.1 10^3/uL (0.1-1.4); ABSOLUTE NEUTROPHILS# (MANUAL) 14.8 10^3/uL (1.7-8.2); BASOPHILS % (MANUAL) 0 % (0-2); EOSINOPHILS % (MANUAL) 4 % (0-6); LYMPHOCYTES % (MANUAL) 22 % (13-45); MONOCYTES % (MANUAL) 5 % (3-13); SEGMENTED NEUTROPHILS % (MAN) 69 % (42-78); TOTAL CELLS COUNTED 100
[2017-05-21 01:34] LABS: ANISOCYTOSIS 1+; HYPOCHROMASIA 1+; PLATELET COMMENT ADEQUATE; POIKILOCYTOSIS 1+; POLYCHROMASIA SLIGHT; STOMATOCYTES 1+; TOXIC GRANULATION SLIGHT; TOXIC VACUOLATION PRESENT
--- NOTE | 2017-05-21 02:04 | RADIOLOGY REPORT (SQ) ---
EXAM DESCRIPTION: CT ABD/PELVIS WITH IV ONLY CLINICAL HISTORY: 42 years Female, rlq pain, poss appy COMPARISON: 02/23/17 TECHNIQUE: 100 mL Isovue-370 IV contrast. Coronal and sagittal reformat. This exam was performed according to our departmental dose-optimization program, which includes automated exposure control, adjustment of the mA and/or kV according to patient size and/or use of iterative reconstruction technique. FINDINGS: No acute findings. No free fluid. Normal appendix. No bowel or renal obstruction. Cholecystectomy clips. Small vacuum disc bulge at L5-S1 with moderate bilateral L5 foraminal stenosis. Notochordal remnant at the superior T10 endplate. Inferior thorax, liver, pancreas, spleen, adrenals, renal system, gastrointestinal tract, pelvic organs, lymphatics, vasculature, and musculoskeleton appear otherwise unremarkable. IMPRESSION: No acute findings.
[2017-05-21] MEDS ORDERED: CEPHALEXIN 500 MG CAPSULE PO ONE (02:39)
[2017-05-21] MEDS ORDERED: LIDOCAINE 5% (700 MG) TRANSDERMAL ADH..PATCH TP ONE (02:40)
[2017-05-21 03:02] VITALS: BP 134/93
== END 2017-05-21 03:03 | disposition home or self-care (01) ==
LOC: ER 21:51
DX: R30.0 Dysuria (principal); R10.31 Right lower quadrant pain; M54.5 Low back pain; R35.0 Frequency of micturition; R39.15 Urgency of urination; F17.200 Nicotine dependence, unspecified, uncomplicated
CPT/HCPCS: 99284; 96361; 96374; 36415; 87086; 85025; 80048; 81001; 74177; J1170; J3490; J7030

== ENCOUNTER 2017-07-18 14:35 | Emergency (ER) | payer MEDICAID ==
--- NOTE | 2017-07-18 15:33 | ER Document Report ---
HPI - HPI Pain Level: 3 Notes: Patient is a 42-year-old female with history of chronic pain and other pain management who presents to the ED complaining of right knee pain and left lateral hip pain status post injury yesterday. Patient states that she believes she may have twisted her knee in the process as she slid down 4 steps. Patient states that she has been ambulatory since then with a little limp on the right side. Patient states that her pains do not radiate. She still eating and drinking without difficulties. She is urinating normally and having normal bowel movements. Patient states that she has not noticed any obvious swelling or bruising to either site. Denies any headache, fever, neck pain, URI , sore throat, chest pain, palpitations, syncope, cough, shortness of breath, wheeze, dyspnea, abdominal pain, nausea/vomiting/diarrhea, urinary retention, dysuria, hematuria, loss of control of bowel or bladder, numbness/tingling, saddle anesthesia, muscle paralysis/weakness, or rash. - ROS Systems Reviewed and Negative: Yes All other systems reviewed and negative - REPRODUCTIVE Reproductive: DENIES: : Past Medical History - Social History Smoking Status: Never Smoker Family History: Arthritis, CAD, CVA, DM, Hyperlipidemia, Hypertension. denies: Malignancy, Thyroid Disfunction - Past Medical History Cardiac Medical History: Reports: Hx Hypertension Pulmonary Medical History: Reports: Hx Asthma, Hx Bronchitis, Hx COPD Endocrine Medical History: Reports: Hx Diabetes Mellitus Type 2 Renal/ Medical History: Reports: Hx Kidney Stones - 2007. Denies: Hx Peritoneal Dialysis Musculoskeltal Medical History: Reports Hx Musculoskeletal Deformity, Reports Hx Musculoskeletal Trauma Skin Medical History: Reports Hx Cellulitis, Reports Hx MRSA Psychiatric Medical History: Reports: Hx Anxiety Infectious Medical History: Reports: Hx MRSA Past Surgical History: Reports: Hx Adenoidectomy, Hx Section, Hx Cholecystectomy, Hx Dilation and Curettage, Hx Kidney (Renal Surgery) - Lithotripsy 11/26, Hx Tonsillectomy, Hx Tubal Ligation, Hx Urinary Tract Surgery - Bladder sling - Immunizations Immunizations up to date: Yes Hx Diphtheria, Pertussis, Tetanus Vaccination: Yes - 2007 [employer] Provider Document - CONSTITUTIONAL Agree With Documented VS: Yes Notes: PHYSICAL EXAMINATION: GENERAL: Well-appearing, well-nourished and in no acute distress. LUNGS: Breath sounds clear to auscultation bilaterally and equal. No wheezes rales or rhonchi. HEART: Regular rate and rhythm without murmurs, rubs, gallops. ABDOMEN: Soft, nontender, nondistended abdomen. No guarding, no rebound. No masses appreciated. Normal bowel sounds present. No CVA tenderness bilaterally. No pulsatile mass Musculoskeletal: Rt knee: No obvious swelling, ecchymosis, erythema, warmth, or deformity. + mild tenderness to the anterior knee. N/V intact distal. Pt has very large legs, making it difficulty to fully assess the knee. Lt Hip: No obvious swelling, ecchymosis, erythema, or deformity. FROM to passive/active. Strength 5+/5. No deficits noted. No bony tenderness. N/V intact distal. + tenderness to palp of the troch bursa, correlates to pain described. Pt able to ambulate w/o discomfort or limp noted. Back: FROM to passive/active. Strength 5+/5. No vertebral point tenderness, stepoffs, or deformities. No other bony tenderness, erythema, swelling, or ecchymosis. SLR negative b/l. No SI jt tenderness. No foot drop Extremities: No cyanosis, clubbing, or edema b/l. Peripheral pulses 2+. Capillary refill less than 2 seconds. NEUROLOGICAL: Normal speech, normal gait. Normal sensory, motor exams. Reflexes 2+ b/l. PSYCH: Normal mood, normal affect. SKIN: Warm, Dry, normal turgor, no rashes or lesions noted. - INFECTION CONTROL TRAVEL OUTSIDE OF THE [place] IN LAST 30 DAYS: No Course - Re-evaluation Re-evalutation: 07/18/17 16:45 Patient is an afebrile, well-hydrated, 42-year-old female who presents to the ED with left trochanteric bursitis and right knee pain, suspect inflammatory. Vitals are acceptable. PE is otherwise unremarkable for any neurovascular compromise, obvious tendon/ligament rupture, obvious fracture/dislocation, septic joint. X-ray was unremarkable for any acute pathology. Patient is able to ambulate without any discomfort at this time. Toradol and Decadron given IM today. Patient is on chronic narcotic medications through pain management. Conservative measures for symptoms. Recheck with your PCM in 3-5 days. Consider consult orthopedics/physical therapy. Return to the ED with any worsening/concerning symptoms otherwise as reviewed discharge. Patient is in agreement. Pt declined crutches. - Vital Signs Vital signs: Temp Pulse Resp BP Pulse Ox 98.6 F 85 18 152/92 H 99 07/18/17 15:06 07/18/17 15:06 07/18/17 15:06 07/18/17 15:06 07/18/17 15:06 Discharge - Discharge Clinical Impression: Trochanteric bursitis, left hip Right knee pain Qualifiers: Chronicity: acute Qualified Code(s): M25.561 - Pain in right knee Condition: Stable Disposition: HOME, SELF-CARE Additional Instructions: Rest, Ice, Compression, Elevation Tylenol/ibuprofen as needed Light stretches daily Strength exercises as able Moist heat and massage may help F/u with your PCP in 3-5 days for a recheck Consider consult(s) with Orthopedics/physical therapy for ongoing/worsening symptoms Return to the ED with any worsening symptoms and/or development of fever, headache, chest pain, palpitations, syncope, shortness of breath, trouble breathing, abdominal pain, n/v/d, muscle weakness/paralysis, numbness/tingling, swelling, redness, or other worsening symptoms that are concerning to you. Prescriptions: Naproxen 500 mg PO BID PRN #30 tablet PRN Reason: Forms: Elevated Blood Pressure, Smoking Cessation Education, Return to Work Referrals: [facility] [Provider Group] - Follow up as needed
--- NOTE | 2017-07-18 16:18 | RADIOLOGY REPORT (SQ) ---
EXAM DESCRIPTION: KNEE RIGHT 4 VIEWS COMPLETED DATE/TIME: 07/18/2017 4:07 pm REASON FOR STUDY: rt knee pain COMPARISON: 03/09/2015 NUMBER OF VIEWS: Four views. TECHNIQUE: AP, lateral, and both oblique radiographic images acquired of the right knee. LIMITATIONS: None. FINDINGS: MINERALIZATION: Normal. BONES: No acute fracture or dislocation. No worrisome bone lesions. JOINT: No effusion. SOFT TISSUES: No soft tissue swelling. No radio-opaque foreign body. OTHER: No other significant finding. IMPRESSION: NEGATIVE STUDY OF THE RIGHT KNEE. NO RADIOGRAPHIC EVIDENCE OF ACUTE INJURY. TECHNICAL DOCUMENTATION: JOB ID: [id number] [employer]- All Rights Reserved Reading location - IP/workstation name: [email or web address]
[2017-07-18] MEDS ORDERED: DEXAMETHASONE SOD PHOS INJ 10 MG/1 ML VIAL IM ONE (16:46)
[2017-07-18] MEDS ORDERED: KETOROLAC TROMETHAMINE INJ/PF 30 MG/1 ML SDV IM ONE (16:46)
[2017-07-18 17:08] VITALS: BP 146/89
== END 2017-07-18 17:07 | disposition home or self-care (01) ==
LOC: ER 14:35
DX: M70.62 Trochanteric bursitis, left hip (principal); G89.29 Other chronic pain; M25.561 Pain in right knee; X50.0XXA Overexertion from strenuous movement or load, initial encounter; I10 Essential (primary) hypertension; J44.9 Chronic obstructive pulmonary disease, unspecified; E11.9 Type 2 diabetes mellitus without complications; Z87.442 Personal history of urinary calculi; Z86.14 Personal history of Methicillin resistant Staphylococcus aureus infection; Z90.49 Acquired absence of other specified parts of digestive tract; Z98.51 Tubal ligation status
CPT/HCPCS: 99283; 96372; 73564; J1885; J1100

== ENCOUNTER 2017-08-01 00:43 | Emergency (ER) | payer MEDICAID ==
[2017-08-01] MEDS ORDERED: PREDNISONE 20 MG TABLET PO ONE (02:15)
[2017-08-01] MEDS ORDERED: IPRATROPIUM/ALBUTEROL 0.5-2.5 MG/3 ML AMPUL NEB ONE (02:15)
[2017-08-01] MEDS ORDERED: BENZONATATE 100 MG CAPSULE PO ONE (02:15)
--- NOTE | 2017-08-01 02:23 | ER Document Report ---
HPI - HPI Pain Level: 4 Context: Patient is a 42-year-old female comes emergency department for chief complaint of 2 weeks of cough. She states she initially had congestion, cough, and fever although this resolved and now she just cannot get over the cough. Cough is now worsening. Sputum production with yellow and green sputum. She cannot sleep at night because of coughing episodes. She smokes, she uses albuterol at home, no formal diagnosis of asthma or COPD. She denies nausea or vomiting, chest pain unless she is coughing, passing out. Only other medical history reported is hypertension. - CONSTITUTIONAL Constitutional: REPORTS: Fever. DENIES: Chills - EENT EENT: REPORTS: Sore Throat. DENIES: Ear Pain, Eye problems - NEURO Neurology: DENIES: Headache, Weakness, Vision blurred, Dizzinesss / Vertigo - CARDIOVASCULAR Cardiovascular: REPORTS: Chest pain - RESPIRATORY Respiratory: REPORTS: Coughing. DENIES: Trouble Breathing - GASTROINTESTINAL Gastrointestinal: DENIES: Abdominal Pain, Black / Bloody Stools - REPRODUCTIVE Reproductive: DENIES: : - MUSCULOSKELETAL Musculoskeletal: DENIES: Extremity pain Past Medical History - General Information source: Patient - Social History Smoking Status: Current Every Day Smoker Chew tobacco use (# tins/day): No Smoking Education Provided: Yes - <3 min Frequency of alcohol use: None Drug Abuse: None Lives with: Family Family History: Arthritis, CAD, CVA, DM, Hyperlipidemia, Hypertension. denies: Malignancy, Thyroid Disfunction Patient has suicidal ideation: No Patient has homicidal ideation: No - Past Medical History Cardiac Medical History: Reports: Hx Hypertension Pulmonary Medical History: Reports: Hx Asthma, Hx Bronchitis, Hx COPD Endocrine Medical History: Reports: Hx Diabetes Mellitus Type 2 Renal/ Medical History: Reports: Hx Kidney Stones - 2007. Denies: Hx Peritoneal Dialysis Musculoskeltal Medical History: Reports Hx Musculoskeletal Deformity, Reports Hx Musculoskeletal Trauma Skin Medical History: Reports Hx Cellulitis, Reports Hx MRSA Psychiatric Medical History: Reports: Hx Anxiety Infectious Medical History: Reports: Hx MRSA Past Surgical History: Reports: Hx Adenoidectomy, Hx Section, Hx Cholecystectomy, Hx Dilation and Curettage, Hx Kidney (Renal Surgery) - Lithotripsy 11/26, Hx Tonsillectomy, Hx Tubal Ligation, Hx Urinary Tract Surgery - Bladder sling - Immunizations Immunizations up to date: Yes Hx Diphtheria, Pertussis, Tetanus Vaccination: Yes - 2007 [facility] Provider Document - CONSTITUTIONAL General Appearance: WD/WN, No Apparent Distress, Obese - INFECTION CONTROL TRAVEL OUTSIDE OF THE [place] IN LAST 30 DAYS: No - HEENT HEENT: Atraumatic, Normal ENT Exam, Normocephalic - NECK Neck: Normal Inspection - RESPIRATORY Respiratory: negative: Breath Sounds Normal - Expiratory wheezes and a few scattered rhonchi, no tachypnea, labored breathing, or respiratory distress noted - CARDIOVASCULAR Cardiovascular: Regular Rate, Regular Rhythm - GI/ABDOMEN Gastrointestinal: Abdomen Soft, Abdomen Non-Tender - MUSCULOSKELETAL/EXTREMETIES Musculoskeletal/Extremeties: MAEW, FROM, Non-Tender - NEURO Level of Consciousness: Awake, Alert, Appropriate - DERM Integumentary: Warm, Dry, No Rash Course - Re-evaluation Re-evalutation: Patient with wheezing, congested cough, states she is no longer running fever as she did at the very start of her illness but she is worsening with her cough. Wheezing resolved after single DuoNeb. Suspect patient has bronchitis along with tobacco abuse. Recommended chest x-ray and workup but patient declined. Patient request medication coverage without workup. Discussed smoking cessation, patient states she is quitting. Patient will be covered with azithromycin along with prednisone, provided with symptom management, discussed follow-up and return precautions, patient states understanding and agreement. - Vital Signs Vital signs: Temp Pulse Resp BP Pulse Ox 99.1 F 85 20 145/85 H 95 08/01/17 01:07 08/01/17 01:07 08/01/17 01:07 08/01/17 01:07 08/01/17 01:07 Discharge - Discharge Clinical Impression: Productive cough, Wheezing Condition: Stable Disposition: HOME, SELF-CARE Additional Instructions: Your evaluation and symptoms are most consistent with bronchitis, however we are covering you with azithromycin for your productive cough, I recommend you take the prednisone and use your inhaler as prescribed, use the Tessalon during the day for cough if needed, use the syrup at night for cough if needed. Drink plenty fluids and rest. Follow-up with primary care. Stop smoking. Return for any concerning or worsening symptoms including rapid or labored breathing, spiking fever, or any other concerning symptoms. Prescriptions: Hydrocodone Bit/Homatropine [Hycodan Syrup 5-1.5 mg/5 ml Ud Cup] 5 ml PO Q4HP PRN #120 ml PRN Reason: Benzonatate [Tessalon Perle 100 mg Capsule] 100 mg PO Q8HP PRN #20 cap PRN Reason: Azithromycin [Zithromax 250 mg Tablet] 250 mg PO ASDIR PRN #4 tablet PRN Reason: Prednisone 60 mg PO DAILY #15 tablet Forms: Smoking Cessation Education, Return to Work
[2017-08-01] MEDS ORDERED: HYDROCODONE/ACETAMINOPHEN 5-325 MG (6 TAB/ER DISP) PO PRN (03:22)
[2017-08-01] MEDS ORDERED: AZITHROMYCIN 250 MG TABLET PO ONE (03:24)
[2017-08-01 03:56] VITALS: BP 137/82
== END 2017-08-01 03:55 | disposition home or self-care (01) ==
LOC: ER 00:43
DX: R05 Cough (principal); R06.2 Wheezing; F17.200 Nicotine dependence, unspecified, uncomplicated; I10 Essential (primary) hypertension; J02.9 Acute pharyngitis, unspecified; R07.9 Chest pain, unspecified; E11.9 Type 2 diabetes mellitus without complications
CPT/HCPCS: 94640; 99283; J3490; Q0144; J7512; J7620

== ENCOUNTER 2017-08-04 20:12 | Emergency (ER) | payer MEDICAID ==
[2017-08-04] MEDS ORDERED: BENZONATATE 100 MG CAPSULE PO ONE (22:04)
--- NOTE | 2017-08-04 22:07 | ER Document Report ---
ED General - General Chief Complaint: Cough Stated Complaint: COUGH,CONGESTION Time Seen by Provider: 08/04/17 21:51 Mode of Arrival: Ambulatory Information source: Patient, [facility] Records TRAVEL OUTSIDE OF THE [place] IN LAST 30 DAYS: No - HPI Patient complains to provider of: cough/muscles hurting Onset: Other - 08/01/17 Associated symptoms: Body/muscle aches, Nonproductive cough, Hurts to breath. denies: Chest pain, Chills, Productive cough, Fever, Headache, Hoarseness, Leg swelling, Nausea, Vomiting, Sweating, Weakness Exacerbated by: Coughing Relieved by: Denies Similar symptoms previously: Yes Recently seen / treated by doctor: Yes - 08/01/17 Notes: She presents here for coughing. She states that her muscles hurt when she coughs. She was seen here on 08/01/2017 and prescribed prednisone Hycodan cough syrup and a Z-Narciso. She states she still has 1 day of prednisone left but she finished her Hycodan and azithromycin. She is positive p.o. intake and urination. No fevers. - Related Data Allergies/Adverse Reactions: No Known Allergies Allergy (Verified 02/23/17 04:07) Past Medical History - General Information source: Patient - Social History Smoking Status: Current Every Day Smoker Chew tobacco use (# tins/day): No Frequency of alcohol use: None Drug Abuse: None Lives with: Family Family History: Arthritis, CAD, CVA, DM, Hyperlipidemia, Hypertension. denies: Malignancy, Thyroid Disfunction Patient has suicidal ideation: No Patient has homicidal ideation: No - Past Medical History Cardiac Medical History: Reports: Hx Hypertension Pulmonary Medical History: Reports: Hx Asthma, Hx Bronchitis, Hx COPD Endocrine Medical History: Reports: Hx Diabetes Mellitus Type 2 Renal/ Medical History: Reports: Hx Kidney Stones - 2007. Denies: Hx Peritoneal Dialysis GI Medical History: Reports: None Musculoskeltal Medical History: Reports Hx Musculoskeletal Deformity, Reports Hx Musculoskeletal Trauma Skin Medical History: Reports Hx Cellulitis, Reports Hx MRSA Psychiatric Medical History: Reports: Hx Anxiety Infectious Medical History: Reports: Hx MRSA Past Surgical History: Reports: Hx Adenoidectomy, Hx Section, Hx Cholecystectomy, Hx Dilation and Curettage, Hx Kidney (Renal Surgery) - Lithotripsy 11/26, Hx Tonsillectomy, Hx Tubal Ligation, Hx Urinary Tract Surgery - Bladder sling - Immunizations Immunizations up to date: Yes Hx Diphtheria, Pertussis, Tetanus Vaccination: Yes - 2007 Review of Systems - Review of Systems Constitutional: No symptoms reported EENT: Nose congestion Cardiovascular: No symptoms reported Respiratory: Cough, Hurts to breathe Gastrointestinal: No symptoms reported Genitourinary: No symptoms reported Female Genitourinary: No symptoms reported Musculoskeletal: No symptoms reported Skin: No symptoms reported Hematologic/Lymphatic: No symptoms reported Neurological/Psychological: No symptoms reported Physical Exam - Vital signs Vitals: Temp Pulse Resp BP Pulse Ox 98.6 F 104 H 18 152/99 H 97 08/04/17 20:32 08/04/17 20:32 08/04/17 20:32 08/04/17 20:32 08/04/17 20:32 - Notes Notes: PHYSICAL EXAMINATION: GENERAL: Well-appearing, well-nourished and in no acute distress. HEAD: Atraumatic, normocephalic. EYES: Pupils equal round and reactive to light, extraocular movements intact, conjunctiva are normal. ENT: Nares patent, oropharynx clear without exudates. Moist mucous membranes. NECK: Normal range of motion, supple without lymphadenopathy LUNGS: Breath sounds clear to auscultation bilaterally and equal. No wheezes rales or rhonchi. Return distress. No sensory muscle use. HEART: Regular rate and rhythm without murmurs ABDOMEN: .Obese soft, nontender, nondistended abdomen. No guarding, no rebound. No masses appreciated. Female : deferred Musculoskeletal: Normal range of motion, no pitting or edema. No cyanosis. NEUROLOGICAL: Cranial nerves grossly intact. Normal speech, normal gait. Normal sensory, motor exams PSYCH: Normal mood, normal affect. SKIN: Warm, Dry, normal turgor, no rashes or lesions noted. Course - Re-evaluation Re-evalutation: 08/04/17 22:10 I did educate the patient stating that the azithromycin stays in your system for 5 more days. Patient also has prednisone left and fact she is not wheezing so I will not prescribe her anymore. Over smoking cessation. She states she is cut down smoking but she has not quit yet. She does have albuterol nebulizer and she is using that at home. Asked for some medication to help with the muscle aches when she coughs. I stated to take Motrin which she stated she was taking. Will prescribe her more cough syrup. She is to follow- up the primary medical doctor in the next 5 days. - Vital Signs Vital signs: Temp Pulse Resp BP Pulse Ox 98.6 F 104 H 18 152/99 H 97 08/04/17 20:32 08/04/17 20:32 08/04/17 20:32 08/04/17 20:32 08/04/17 20:32 Discharge - Discharge Clinical Impression: Bronchitis Condition: Stable Disposition: HOME, SELF-CARE Instructions: Bronchitis (OM), Stop Smoking (OM) Prescriptions: Hydrocodone Bit/Homatropine [Hycodan Syrup 5-1.5 mg/5 ml Ud Cup] 5 ml PO Q4HP PRN #120 ml PRN Reason: Referrals: BETTINA DOE MD [Primary Care Provider] - Follow up in 3-5 days
[2017-08-04 23:17] VITALS: BP 148/90
--- NOTE | 2017-08-05 08:18 | EKG REPORT ---
SEVERITY:- BORDERLINE ECG - SINUS TACHYCARDIA PROBABLE LEFT ATRIAL ABNORMALITY BORDERLINE LEFT AXIS DEVIATION : Confirmed by: Rg Benites 05-Aug-2017 05:17:59
== END 2017-08-04 22:35 | disposition home or self-care (01) ==
LOC: ER 20:12
DX: J40 Bronchitis, not specified as acute or chronic (principal); J44.9 Chronic obstructive pulmonary disease, unspecified; R05 Cough; M79.1 Myalgia; R07.1 Chest pain on breathing; R09.81 Nasal congestion; I10 Essential (primary) hypertension; E11.9 Type 2 diabetes mellitus without complications; F17.200 Nicotine dependence, unspecified, uncomplicated
CPT/HCPCS: 93005; 99283; 93010; J3490

== ENCOUNTER 2017-08-15 14:10 | Emergency (ER) | payer MEDICAID ==
[2017-08-15 14:27] VITALS: BP 133/75
--- NOTE | 2017-08-15 14:29 | ER Document Report ---
HPI - HPI Patient complains to provider of: cough Onset: Other - 1 month Onset/Duration: Gradual Pain Level: 4 Context: 42 yo female smoker with persistant cough for a month. Tx with antibiotics and using nebulizer tx. no fever. no chest pain or sob. hx asthmal does not have MDI. Associated Symptoms: None Exacerbated by: Denies Relieved by: Denies Similar symptoms previously: Yes Recently seen / treated by doctor: Yes - ROS ROS below otherwise negative: Yes Systems Reviewed and Negative: Yes All other systems reviewed and negative - REPRODUCTIVE Reproductive: DENIES: : Past Medical History - General Information source: Patient - Social History Smoking Status: Current Every Day Smoker Frequency of alcohol use: None Drug Abuse: None Lives with: Family Family History: Arthritis, CAD, CVA, DM, Hyperlipidemia, Hypertension - Past Medical History Cardiac Medical History: Reports: Hx Hypertension Pulmonary Medical History: Reports: Hx Asthma, Hx Bronchitis, Hx COPD Endocrine Medical History: Reports: Hx Diabetes Mellitus Type 2 Renal/ Medical History: Reports: Hx Kidney Stones - 2007. Denies: Hx Peritoneal Dialysis Musculoskeltal Medical History: Reports Hx Musculoskeletal Deformity, Reports Hx Musculoskeletal Trauma Skin Medical History: Reports Hx Cellulitis, Reports Hx MRSA Psychiatric Medical History: Reports: Hx Anxiety Infectious Medical History: Reports: Hx MRSA Past Surgical History: Reports: Hx Adenoidectomy, Hx Section, Hx Cholecystectomy, Hx Dilation and Curettage, Hx Kidney (Renal Surgery) - Lithotripsy 11/26, Hx Tonsillectomy, Hx Tubal Ligation, Hx Urinary Tract Surgery - Bladder sling - Immunizations Immunizations up to date: Yes Hx Diphtheria, Pertussis, Tetanus Vaccination: Yes - 2007 [facility] Provider Document - CONSTITUTIONAL Agree With Documented VS: Yes Exam Limitations: No Limitations General Appearance: No Apparent Distress - INFECTION CONTROL TRAVEL OUTSIDE OF THE [place] IN LAST 30 DAYS: No - HEENT HEENT: Pharyngeal Erythema. negative: Conjuctival Injection, Tympanic Membrane Red - NECK Neck: Supple. negative: Lymphadenopathy-Left, Lymphadenopathy-Right - RESPIRATORY Respiratory: No Respiratory Distress, Wheezing - exp on forced expirations. negative: Rales - CARDIOVASCULAR Cardiovascular: Regular Rate, Regular Rhythm - MUSCULOSKELETAL/EXTREMETIES Musculoskeletal/Extremeties: MAEW - NEURO Level of Consciousness: Awake - DERM Integumentary: No Rash Course - Re-evaluation Re-evalutation: 05/28/18 15:13 Chest x-ray is negative per radiologist - Vital Signs Vital signs: Temp Pulse Resp BP Pulse Ox 98.9 F 103 H 16 133/75 H 95 08/15/17 14:24 08/15/17 14:24 08/15/17 14:24 08/15/17 14:24 08/15/17 14:24 Discharge - Discharge Clinical Impression: Chronic bronchitis Qualifiers: Chronic bronchitis type: unspecified Qualified Code(s): J42 - Unspecified chronic bronchitis Condition: Good Disposition: HOME, SELF-CARE Instructions: Bronchitis (OM), Inhaled Bronchodilators (OM), Stop Smoking ( OM), Steroid Medication Additional Instructions: stop smoking see the sweetbread trimmer Inhaled steroids Prednisone Inhaled bronchodilators Return to the emergency room if worse Prescriptions: Albuterol Sulfate [Ventolin 0.083% Neb 2.5 mg/3 mL Ampul] 2.5 mg NEB Q3HP PRN # 25 vial PRN Reason: Albuterol Sulfate [Proair HFA Inhalation Aerosol 8.5 gm MDI] 2 puff IH Q3HP PRN #1 hfa.aer.ad PRN Reason: Fluticasone Propionate [Flovent Hfa 110 Mcg Inhalation Aerosol 12 gm] 2 puff IH Q12 #1 inhaler Prednisone [Deltasone 20 mg Tablet] 40 mg PO DAILY #8 tablet Referrals: BETTINA DOE MD [Primary Care Provider] - Follow up as needed BRONSON PHAM MD [ACTIVE STAFF] - Follow up in 1 week
[2017-08-15] MEDS ORDERED: PREDNISONE 20 MG TABLET PO ONE (14:58)
[2017-08-15] MEDS ORDERED: IPRATROPIUM/ALBUTEROL 0.5-2.5 MG/3 ML AMPUL NEB ONE (14:58)
--- NOTE | 2017-08-15 15:08 | RADIOLOGY REPORT (SQ) ---
EXAM DESCRIPTION: CHEST 2 VIEWS COMPLETED DATE/TIME: 08/15/2017 2:49 pm REASON FOR STUDY: cough for 1 month COMPARISON: 09/16/2016 EXAM PARAMETERS: NUMBER OF VIEWS: two views TECHNIQUE: Digital Frontal and Lateral radiographic views of the chest acquired. RADIATION DOSE: NA LIMITATIONS: none FINDINGS: LUNGS AND PLEURA: No opacities, masses or pneumothorax. No pleural effusion. MEDIASTINUM AND HILAR STRUCTURES: No masses or contour abnormalities. HEART AND VASCULAR STRUCTURES: Heart normal size. No evidence for failure. BONES: No acute findings. HARDWARE: None in the chest. OTHER: No other significant finding. IMPRESSION: NO ACUTE RADIOGRAPHIC FINDING IN THE CHEST. TECHNICAL DOCUMENTATION: JOB ID: [id number] [email or web address]- All Rights Reserved Reading location - IP/workstation name: [email or web address]
== END 2017-08-15 15:21 | disposition home or self-care (01) ==
LOC: ER 14:10
DX: J44.9 Chronic obstructive pulmonary disease, unspecified (principal); R05 Cough; F17.200 Nicotine dependence, unspecified, uncomplicated; I10 Essential (primary) hypertension; E11.9 Type 2 diabetes mellitus without complications
CPT/HCPCS: 94640; 99283; 71046; J7512; J7620

== ENCOUNTER → 2017-08-23 | Outpatient (CLI) | payer MEDICAID ==
--- NOTE | 2017-08-23 16:08 | RADIOLOGY REPORT (SQ) ---
EXAM DESCRIPTION: CHEST PA/LATERAL COMPLETED DATE/TIME: 08/23/2017 3:59 pm REASON FOR STUDY: COUGH COMPARISON: 08/15/2017. EXAM PARAMETERS: NUMBER OF VIEWS: two views TECHNIQUE: Digital Frontal and Lateral radiographic views of the chest acquired. RADIATION DOSE: NA LIMITATIONS: none FINDINGS: LUNGS AND PLEURA: No opacities, masses or pneumothorax. No pleural effusion. MEDIASTINUM AND HILAR STRUCTURES: No masses or contour abnormalities. HEART AND VASCULAR STRUCTURES: Heart normal size. No evidence for failure. BONES: No acute findings. HARDWARE: None in the chest. OTHER: No other significant finding. IMPRESSION: NO SIGNIFICANT RADIOGRAPHIC FINDING IN THE CHEST. TECHNICAL DOCUMENTATION: JOB ID: [id number] [employer]- All Rights Reserved Reading location - IP/workstation name: [email or web address]
== END ==
LOC: OD 15:11
PROVIDERS: ATTEND Nurse Practitioner Adult Health
DX: R05 Cough (principal)
CPT/HCPCS: 71046

== ENCOUNTER 2017-09-27 06:48 | Emergency (ER) | payer MEDICAID ==
[2017-09-27] MEDS ORDERED: ONDANSETRON 4 MG TAB.RAPDIS PO ONE (07:21)
[2017-09-27] MEDS ORDERED: OXYCODONE-ACETAMINOPHEN 5-325 MG TABLET PO ONE (07:21)
[2017-09-27 08:03] LABS: ABSOLUTE BASOPHILS # (AUTO) 0.1 10^3/uL (0.0-0.2); ABSOLUTE EOSINOPHILS # (AUTO) 0.7 10^3/uL (0.0-0.6); ABSOLUTE LYMPHOCYTES (AUTO) 3.3 10^3/uL (0.5-4.7); ABSOLUTE MONOCYTES (AUTO) 0.9 10^3/uL (0.1-1.4); ABSOLUTE NEUT (AUTO) 7.4 10^3/uL (1.7-8.2); EOSINOPHILS % (AUTO) 5.6 % (0-6); HEMATOCRIT 42.5 % (36.0-47.0); HEMOGLOBIN 14.2 g/dL (12.0-15.5); LYMPHOCYTES % (AUTO) 26.8 % (13-45); MEAN CORPUSCULAR HEMOGLOBIN 29.4 pg (27.0-33.4); MEAN CORPUSCULAR HGB CONC 33.5 g/dL (32.0-36.0); MEAN CORPUSCULAR VOLUME 88 fl (80-97); MONOCYTES % (AUTO) 7.4 % (3-13); PLATELET COUNT 409 10^3/uL (150-450); RED BLOOD COUNT 4.85 10^6/uL (3.72-5.28); RED CELL DISTRIBUTION WIDTH 18.8 % (11.5-14.0); SEGMENTED NEUTROPHILS % (AUTO) 59.2 % (42-78); TOTAL CELLS COUNTED % (AUTO) 100 %; WHITE BLOOD COUNT 12.4 10^3/uL (4.0-10.5)
[2017-09-27 08:06] LABS: APPEARANCE,URINE SLIGHTLY-CLOUDY; BILIRUBIN,URINE NEGATIVE (NEGATIVE); COLOR,URINE YELLOW; GLUCOSE, URINE NEGATIVE (NEGATIVE); KETONES,URINE NEGATIVE (NEGATIVE); LEUKOCYTE ESTERASE,URINE NEGATIVE (NEGATIVE); NITRITE,URINE NEGATIVE (NEGATIVE); PROTEIN,URINE 30 mg/dL (NEGATIVE); URINE SPECIFIC GRAVITY 1.023
[2017-09-27 08:21] LABS: ALANINE AMINOTRANSFERASE 23 U/L (9-52); ALBUMIN 4.1 g/dL (3.5-5.0); ALKALINE PHOSPHATASE 82 U/L (38-126); ANION GAP 11 (5-19); ASPARTATE AMINO TRANSFERASE 22 U/L (14-36); BILIRUBIN,DIRECT 0.3 mg/dL (0.0-0.4); BILIRUBIN,TOTAL 0.3 mg/dL (0.2-1.3); BLOOD UREA NITROGEN 15 mg/dL (7-20); CALCIUM 9.4 mg/dL (8.4-10.2); CARBON DIOXIDE 31 mmol/L (22-30); CHLORIDE 102 mmol/L (98-107); GLUCOSE 123 mg/dL (75-110); LIPASE 72.8 U/L (23-300); POTASSIUM 4.3 mmol/L (3.6-5.0); SODIUM 144.4 mmol/L (137-145); TOTAL PROTEIN 7.6 g/dL (6.3-8.2)
[2017-09-27] MEDS ORDERED: NORMAL SALINE 1000 ML 1,000 ML IV ONE (08:47)
[2017-09-27] MEDS ORDERED: MORPHINE SULFATE 10 MG/ML INJ IV ONE (08:47)
[2017-09-27] MEDS ORDERED: METOCLOPRAMIDE HCL INJ/PF 10 MG/2 ML SDV IV ONE (09:00)
--- NOTE | 2017-09-27 11:58 | ER Document Report ---
ED GI/ - General Chief Complaint: Abdominal Pain Stated Complaint: SIDE/BACK PAIN Time Seen by Provider: 09/27/17 07:21 Mode of Arrival: Ambulatory Information source: Patient Notes: Patient is a 42-year-old female who is well-known to this emergency department for pain complaints who presents to the ER today for right middle abdominal pain 2 days that radiates around to the right side and right lower back. Patient denies any dysuria, hematuria, nausea, vomiting, abnormal vaginal discharge, history of kidney stones or ovarian cysts. Patient does not have a gallbladder. Patient denies any fevers or chills. Last bowel movement was today and normal. TRAVEL OUTSIDE OF THE [place] IN LAST 30 DAYS: No - Related Data Allergies/Adverse Reactions: No Known Allergies Allergy (Verified 08/15/17 14:11) Past Medical History - General Information source: Patient - Social History Smoking Status: Current Every Day Smoker Frequency of alcohol use: None Drug Abuse: None Family History: Arthritis, CAD, CVA, DM, Hyperlipidemia, Hypertension Patient has suicidal ideation: No Patient has homicidal ideation: No - Past Medical History Cardiac Medical History: Reports: Hx Hypertension Pulmonary Medical History: Reports: Hx Asthma, Hx Bronchitis, Hx COPD Endocrine Medical History: Reports: Hx Diabetes Mellitus Type 2 Renal/ Medical History: Reports: Hx Kidney Stones - 2007. Denies: Hx Peritoneal Dialysis Musculoskeltal Medical History: Reports Hx Musculoskeletal Deformity, Reports Hx Musculoskeletal Trauma Skin Medical History: Reports Hx Cellulitis, Reports Hx MRSA Psychiatric Medical History: Reports: Hx Anxiety Infectious Medical History: Reports: Hx MRSA Past Surgical History: Reports: Hx Adenoidectomy, Hx Section, Hx Cholecystectomy, Hx Dilation and Curettage, Hx Kidney (Renal Surgery) - Lithotripsy 11/26, Hx Tonsillectomy, Hx Tubal Ligation, Hx Urinary Tract Surgery - Bladder sling - Immunizations Immunizations up to date: Yes Hx Diphtheria, Pertussis, Tetanus Vaccination: Yes - 2007 Review of Systems - Review of Systems Constitutional: No symptoms reported EENT: No symptoms reported Cardiovascular: No symptoms reported Respiratory: No symptoms reported Gastrointestinal: See HPI Genitourinary: No symptoms reported Female Genitourinary: No symptoms reported Musculoskeletal: No symptoms reported Skin: No symptoms reported Hematologic/Lymphatic: No symptoms reported Neurological/Psychological: No symptoms reported Physical Exam - Vital signs Vitals: Temp Pulse Resp BP Pulse Ox 97.9 F 87 18 149/84 H 95 09/27/17 06:54 09/27/17 06:54 09/27/17 06:54 09/27/17 06:54 09/27/17 06:54 - Notes Notes: PHYSICAL EXAMINATION: GENERAL: Uncomfortable appearing, but in no acute distress. HEAD: Atraumatic, normocephalic. EYES: Pupils equal round and reactive to light, extraocular movements intact, sclera anicteric, conjunctiva are normal. NECK: Normal range of motion, supple without lymphadenopathy LUNGS: CTAB and equal. No wheezes rales or rhonchi. HEART: Regular rate and rhythm without murmurs ABDOMEN: Soft, right upper quadrant and lower quadrant tenderness. No guarding, no rebound BACK: no vertebral tenderness, normal ROM GI/: no CVA tenderness EXTREMITIES: Normal range of motion, no pitting edema. No cyanosis. NEUROLOGICAL: Cranial nerves grossly intact. Normal sensory/motor exams. PSYCH: Normal mood, normal affect. SKIN: Warm, Dry, normal turgor, no rashes or lesions noted Course - Re-evaluation Re-evalutation: 09/27/17 17:18 White blood cell count is mildly elevated today at 12.4, other lab work is all unremarkable including normal bilirubin and liver enzymes, normal kidney function, CT of the abdomen and pelvis with IV and oral contrast was performed to rule out appendicitis and notes a normal appendix, gallbladder is absent, no acute pathology today. Urinalysis is negative for infection. negative today. I have no reason for patient's pain today. Patient continues to ask for narcotic pain medication. I will send her home with Kylie. 09/27/17 17:19 - Vital Signs Vital signs: Temp Pulse Resp BP Pulse Ox 98.3 F 72 18 143/83 H 98 09/27/17 13:10 09/27/17 13:10 09/27/17 06:54 09/27/17 13:10 09/27/17 13:10 - Laboratory Result Diagrams: 09/27/17 07:50 09/27/17 07:50 Laboratory results interpreted by me: 09/27/17 09/27/17 09/27/17 07:50 07:50 07:50 WBC 12.4 H RDW 18.8 H Absolute Eosinophils 0.7 H Carbon Dioxide 31 H Glucose 123 H Urine Protein 30 H Urine Urobilinogen 2.0 H Discharge - Discharge Clinical Impression: Abdominal pain Qualifiers: Abdominal location: right upper quadrant Qualified Code(s): R10.11 - Right upper quadrant pain Condition: Stable Disposition: HOME, SELF-CARE Additional Instructions: Return immediately for any new or worsening symptoms. Follow up with primary care provider, call tomorrow to make followup appointment. Prescriptions: Dicyclomine HCl [Bentyl 20 mg Tablet] 20 mg PO QID PRN #15 tablet PRN Reason: Referrals: BETTINA DOE MD [Primary Care Provider] - Follow up as needed
--- NOTE | 2017-09-27 12:07 | RADIOLOGY REPORT (SQ) ---
EXAM DESCRIPTION: CT ABD/PELVIS WITH IV ORAL COMPLETED DATE/TIME: 09/27/2017 11:46 am REASON FOR STUDY: rlq pain,nausea COMPARISON: CT abdomen pelvis 10/12/2010, 02/23/2017, 05/21/2017 TECHNIQUE: CT scan of the abdomen and pelvis performed using helical scanning technique with dynamic intravenous contrast injection. Patient drank oral contrast. Images reviewed with lung, soft tissue , and bone windows. Reconstructed coronal and sagittal MPR images reviewed. Delayed images for evalua tion of the urinary system also acquired. All images stored on PACS. All CT scanners at this facility use dose modulation, iterative reconstruction, and/or weight based d osing when appropriate to reduce radiation dose to as low as reasonably achievable (ALARA). [facility]: Dose Right [facility]: CareDose [facility]: Dose Right [facility]: Teradose 4D [facility]: [employer] CONTRAST TYPE AND DOSE: contrast/concentration: Isovue 370.00 mg/ml; Total Contrast Delivered: 100.0 ml; Total Saline Delivered: 70.0 ml RENAL FUNCTION: Creatinine 0.91 RADIATION DOSE: CT Rad equipment meets quality standard of care and radiation dose reduction techniq ues were employed. CTDIvol: 20.9 - 21.1 mGy. DLP: 2438 mGy-cm.. LIMITATIONS: None. FINDINGS: LOWER CHEST: No significant findings. No nodules or infiltrates. LIVER: Normal size. No masses. No dilated ducts. SPLEEN: Normal size. No focal lesions. PANCREAS: No masses. No significant calcifications. No adjacent inflammation or peripancreatic fluid collections. Pancreatic duct not dilated. GALLBLADDER: Surgically absent ADRENAL GLANDS: No significant masses or asymmetry. RIGHT KIDNEY AND URETER: No solid masses. No significant calcifications. No hydronephrosis or hyd roureter. LEFT KIDNEY AND URETER: No solid masses. No significant calcifications. No hydronephrosis or hydr oureter. AORTA AND VESSELS: No aneurysm. No dissection. Renal arteries, SMA, celiac without stenosis. RETROPERITONEUM: No retroperitoneal adenopathy, hemorrhage or masses. BOWEL AND PERITONEAL CAVITY: Patient drank oral contrast. No CT evidence of bowel obstruction. No f ree intraperitoneal air or fluid. Few sigmoid colon diverticuli without CT signs of acute diverticul itis APPENDIX: Normal. PELVIS: No mass. No free fluid. Normal bladder. Normal size female pelvic organs ABDOMINAL WALL: No masses. No hernias. BONES: No significant or acute findings. OTHER: No other significant finding. IMPRESSION: NO SIGNIFICANT OR ACUTE FINDING IN THE ABDOMEN OR PELVIS ON CT SCAN WITH IV CONTRAST. TECHNICAL DOCUMENTATION: JOB ID: [id number] Quality ID # [id number]: Final reports with documentation of one or more dose reduction techniques (e.g., Au tomated exposure control, adjustment of the mA and/or kV according to patient size, use of iterative reconstruction technique) 2010 [employer]- All Rights Reserved Reading location - IP/workstation name: [facility]
[2017-09-27] MEDS ORDERED: DICYCLOMINE HCL 20 MG TABLET PO ONE (13:12)
[2017-09-27 13:34] VITALS: BP 143/83
== END 2017-09-27 13:34 | disposition home or self-care (01) ==
LOC: ER 06:48
DX: R10.11 Right upper quadrant pain (principal); R10.811 Right upper quadrant abdominal tenderness; R10.813 Right lower quadrant abdominal tenderness; D72.829 Elevated white blood cell count, unspecified; M54.5 Low back pain; I10 Essential (primary) hypertension; J44.9 Chronic obstructive pulmonary disease, unspecified; E11.9 Type 2 diabetes mellitus without complications; F17.200 Nicotine dependence, unspecified, uncomplicated; Z90.49 Acquired absence of other specified parts of digestive tract
CPT/HCPCS: 99284; 96361; 96374; 96375; 36415; 83690; 84703; 85025; 80053; 81001; 74177; J3490; S0119; J2765; J2270; J7030

== ENCOUNTER 2017-10-23 00:47 | Emergency (ER) | payer MEDICAID ==
[2017-10-23 01:27] VITALS: BP 148/91
--- NOTE | 2017-10-23 01:47 | ER Document Report ---
ED Medical Screen (RME) - General Chief Complaint: Foot Pain Stated Complaint: FOOT PAIN Time Seen by Provider: 10/23/17 01:46 Mode of Arrival: Ambulatory Information source: Patient Notes: 42-year-old female presents to ED for complaint of very sharp pain in the tops and bottoms of both feet and dull pains in both legs. She states she has a history of transverse myelitis, chronic back pain, chronic ear problems, and high blood pressure. She states she has had 17 surgeries on her ears and a gallbladder removed. She states the pain in her feet is worse than she has ever had before. She states she is on Neurontin 300 mg twice daily and she still has this pain this bad. Patient is alert and oriented respirations regular and unlabored speaking in full sentences and walks but she states with discomfort to both feet as she walks. I have greeted and performed a rapid initial assessment of this patient. A comprehensive ED assessment and evaluation of the patient, analysis of test results and completion of medical decision making process will be conducted by an additional ED providers. TRAVEL OUTSIDE OF THE [place] IN LAST 30 DAYS: No - Related Data Allergies/Adverse Reactions: No Known Allergies Allergy (Verified 08/15/17 14:11) Past Medical History - Past Medical History Cardiac Medical History: Reports: Hx Hypertension Pulmonary Medical History: Reports: Hx Asthma, Hx Bronchitis, Hx COPD Endocrine Medical History: Reports: Hx Diabetes Mellitus Type 2 Renal/ Medical History: Reports: Hx Kidney Stones - 2007. Denies: Hx Peritoneal Dialysis Musculoskeltal Medical History: Reports Hx Musculoskeletal Deformity, Reports Hx Musculoskeletal Trauma Skin Medical History: Reports Hx Cellulitis, Reports Hx MRSA Psychiatric Medical History: Reports: Hx Anxiety Infectious Medical History: Reports: Hx MRSA Past Surgical History: Reports: Hx Adenoidectomy, Hx Section, Hx Cholecystectomy, Hx Dilation and Curettage, Hx Kidney (Renal Surgery) - Lithotripsy 11/26, Hx Tonsillectomy, Hx Tubal Ligation, Hx Urinary Tract Surgery - Bladder sling - Immunizations Immunizations up to date: Yes Hx Diphtheria, Pertussis, Tetanus Vaccination: Yes - 2007 Physical Exam - Vital signs Vitals: Temp Pulse Resp BP Pulse Ox 99.4 F 100 21 H 148/91 H 93 10/23/17 01:26 10/23/17 01:26 10/23/17 01:26 10/23/17 01:10/23/17 01:26 Course - Vital Signs Vital signs: Temp Pulse Resp BP Pulse Ox 99.4 F 100 21 H 148/91 H 93 10/23/17 01:26 10/23/17 01:26 10/23/17 01:26 10/23/17 01:26 10/23/17 01:26 Doctor's Discharge - Discharge Referrals: BETTINA DOE MD [Primary Care Provider] - Follow up as needed
[2017-10-23] MEDS ORDERED: HYDROCODONE/ACETAMINOPHEN 5-325 MG (6 TAB/ER DISP) PO PRN (06:20)
--- NOTE | 2017-10-23 06:23 | ER Document Report ---
ED General - General Chief Complaint: Foot Pain Stated Complaint: FOOT PAIN Time Seen by Provider: 10/23/17 01:46 Mode of Arrival: Ambulatory TRAVEL OUTSIDE OF THE [place] 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 Kat bottoms, gradual onset last day or 2. Similar to her existing neuropathy pain but worse than normal. She is taking Neurontin without relief. No change in medications. No other modifying factors, no other associated symptoms, no other provocative or palliative factors. - Related Data Allergies/Adverse Reactions: No Known Allergies Allergy (Verified 08/15/17 14:11) Past Medical History - General Information source: Patient - Social History Smoking Status: Smoker,Current Status Unk Family History: Arthritis, CAD, CVA, DM, Hyperlipidemia, Hypertension - Medical History Notes: Previous transverse myelitis - Past Medical History Cardiac Medical History: Reports: Hx Hypertension Pulmonary Medical History: Reports: Hx Asthma, Hx Bronchitis, Hx COPD Endocrine Medical History: Reports: Hx Diabetes Mellitus Type 2 Renal/ Medical History: Reports: Hx Kidney Stones - 2007. Denies: Hx Peritoneal Dialysis Musculoskeletal Medical History: Reports Hx Musculoskeletal Deformity, Reports Hx Musculoskeletal Trauma Skin Medical History: Reports Hx Cellulitis, Reports Hx MRSA Psychiatric Medical History: Reports: Hx Anxiety Infectious Medical History: Reports: Hx MRSA Past Surgical History: Reports: Hx Adenoidectomy, Hx Section, Hx Cholecystectomy, Hx Dilation and Curettage, Hx Kidney (Renal Surgery) - Lithotripsy 11/26, Hx Tonsillectomy, Hx Tubal Ligation, Hx Urinary Tract Surgery - Bladder sling - Immunizations Immunizations up to date: Yes Hx Diphtheria, Pertussis, Tetanus Vaccination: Yes - 2007 Review of Systems - Review of Systems Notes: Review of systems as in history of present illness, otherwise no significant headache, chest pain, abdominal pain. Physical Exam - Vital signs Vitals: Temp Pulse Resp BP Pulse Ox 99.4 F 100 21 H 148/91 H 93 10/23/17 01:26 10/23/17 01:26 10/23/17 01:26 10/23/17 01:26 10/23/17 01:26 - Notes Notes: General: Well devloped, no acute distress. HEENT: Normocephalic, atraumatic. Pupils equal round reactive to light. Mucosa moist. No JVD. Chest: No trauma, normal excursion. Respiratory: Good air exchange, normal excursion. Cardiac: Regular rhythm Abdomen: Soft, benign. Nondistended. Back: No asymmetry or gross abnormality. Motor: Grossly normal power and tone. Neurologic: Alert, nonfocal. Vascular: Well perfused Skin: No petechiae or purpura Extremities: Well-perfused warm feet normal capillary refill, normal pulses. Course - Re-evaluation Re-evalutation: 10/23/17 06:22 Well-appearing female presents with what appears to be exacerbation of underlying peripheral neuropathy, no evidence of vascular compromise. Treat with a short course of analgesics in addition to her Neurontin, she will see her neurologist - Vital Signs Vital signs: Temp Pulse Resp BP Pulse Ox 99.4 F 100 21 H 148/91 H 93 10/23/17 01:26 10/23/17 01:26 10/23/17 01:26 10/23/17 01:26 10/23/17 01:26 Discharge - Discharge Clinical Impression: Neuropathy Disposition: HOME, SELF-CARE Instructions: Neuropathy (PENDING SALE TO [facility]) Referrals: BETTINA DOE MD [Primary Care Provider] - Follow up as needed
== END 2017-10-23 06:31 | disposition home or self-care (01) ==
LOC: ER 00:47
DX: E11.40 Type 2 diabetes mellitus with diabetic neuropathy, unspecified (principal); Z79.899 Other long term (current) drug therapy; I10 Essential (primary) hypertension; J44.9 Chronic obstructive pulmonary disease, unspecified
CPT/HCPCS: 99283

== ENCOUNTER 2017-12-05 18:03 | Emergency (ER) | payer MEDICAID ==
[2017-12-05 18:27] VITALS: BP 153/90
[2017-12-05] MEDS ORDERED: DEXAMETHASONE SOD PHOS INJ 10 MG/1 ML VIAL IM ONE (19:41)
[2017-12-05] MEDS ORDERED: KETOROLAC TROMETHAMINE 60 MG/2 ML SDV IM ONE (19:41)
--- NOTE | 2017-12-05 19:45 | ER Document Report ---
HPI - HPI Patient complains to provider of: Right ear pain Pain Level: 4 Context: Patient is a 42-year-old female comes emergency department for chief complaint of worsening right ear pain since yesterday, she also reports sensation of swelling of the lymph nodes on the same side. She reports history of frequent ear infections on the same side, she has had tympanoplasty on the same side as well. She denies nausea or vomiting, fever or chills, injury, congestion, cough. - EENT EENT: REPORTS: Ear Pain - R ear pain - REPRODUCTIVE Reproductive: DENIES: : Past Medical History - General Information source: Patient - Social History Smoking Status: Never Smoker Chew tobacco use (# tins/day): No Frequency of alcohol use: None Drug Abuse: None Lives with: Family Family History: Arthritis, CAD, CVA, DM, Hyperlipidemia, Hypertension Patient has suicidal ideation: No Patient has homicidal ideation: No - Past Medical History Cardiac Medical History: Reports: Hx Hypertension Pulmonary Medical History: Reports: Hx Asthma, Hx Bronchitis, Hx COPD Endocrine Medical History: Reports: Hx Diabetes Mellitus Type 2 Renal/ Medical History: Reports: Hx Kidney Stones - 2007. Denies: Hx Peritoneal Dialysis Musculoskeletal Medical History: Reports Hx Musculoskeletal Deformity, Reports Hx Musculoskeletal Trauma Skin Medical History: Reports Hx Cellulitis, Reports Hx MRSA Psychiatric Medical History: Reports: Hx Anxiety Infectious Medical History: Reports: Hx MRSA Past Surgical History: Reports: Hx Adenoidectomy, Hx Section, Hx Cholecystectomy, Hx Dilation and Curettage, Hx Kidney (Renal Surgery) - Lithotripsy 11/26, Hx Tonsillectomy, Hx Tubal Ligation, Hx Urinary Tract Surgery - Bladder sling - Immunizations Immunizations up to date: Yes Hx Diphtheria, Pertussis, Tetanus Vaccination: Yes - 2007 Vertical Provider Document - CONSTITUTIONAL General Appearance: WD/WN, No Apparent Distress - INFECTION CONTROL TRAVEL OUTSIDE OF THE [place] IN LAST 30 DAYS: No - HEENT HEENT: Atraumatic, Normocephalic, PERRLA. negative: Conjuctival Injection, Dental Injury, Normal ENT Exam - Right otitis media with purulent effusion, unremarkable ear canal, no mastoid tenderness, unremarkable ear exam otherwise. , Pharyngeal Exudate, Pharyngeal Tenderness, Pharyngeal Erythema - NECK Neck: Lymphadenopathy-Right - Mild - RESPIRATORY Respiratory: Breath Sounds Normal, No Respiratory Distress - CARDIOVASCULAR Cardiovascular: Regular Rate, Regular Rhythm - GI/ABDOMEN Gastrointestinal: Abdomen Soft, Abdomen Non-Tender - BACK Back: Normal Inspection - MUSCULOSKELETAL/EXTREMETIES Musculoskeletal/Extremeties: MAEW, FROM, Non-Tender - NEURO Level of Consciousness: Awake, Alert, Appropriate - DERM Integumentary: Warm, Dry, No Rash Course - Re-evaluation Re-evalutation: Examination is is consistent with otitis media without perforation, normal mastoid, no additional abnormalities noted with the ear. Mild cervical adenopathy on the same side. Otherwise unremarkable exam. Very well-appearing patient, she is talkative and alert. Given dexamethasone for lymphadenopathy, starting on Augmentin because of frequent history of infections of the ear, discussed primary and ENT follow-up, discussed return precautions. Patient states understanding and agreement. - Vital Signs Vital signs: Temp Pulse Resp BP Pulse Ox 98.3 F 95 16 153/90 H 96 12/05/17 18:26 12/05/17 18:26 12/05/17 18:26 12/05/17 18:26 12/05/17 18:26 Discharge - Discharge Clinical Impression: Right ear pain, Lymphadenopathy Otitis media Qualifiers: Otitis media type: suppurative Chronicity: acute Laterality: right Recurrence: recurrent Spontaneous tympanic membrane rupture: without spontaneous rupture Qualified Code(s): H66.004 - Acute suppurative otitis media without spontaneous rupture of ear drum, recurrent, right ear Condition: Stable Disposition: HOME, SELF-CARE Additional Instructions: Your exam shows right middle ear infection and nearby lymph node swelling. Take antibiotic as prescribed, I recommend probiotic as well to avoid diarrhea. Follow-up with ENT referral for additional evaluation and management. Return if you worsen including swelling or redness of the ear, fever, vomiting, or any other concerning symptoms. Prescriptions: Amox Tr/Potassium Clavulanate [Augmentin 875-125 Tablet] 1 tab PO BID 7 Days tablet Amox Tr/Potassium Clavulanate [Augmentin 875-125 Tablet] 1 tab PO BID 3 Days #6 tablet Referrals: AZEB WATKINS DO [ASSOCIATE] - Follow up as needed
== END 2017-12-05 20:25 | disposition home or self-care (01) ==
LOC: ER 18:03
DX: H66.004 Acute suppurative otitis media without spontaneous rupture of ear drum, recurrent, right ear (principal); H92.01 Otalgia, right ear; R59.1 Generalized enlarged lymph nodes; I10 Essential (primary) hypertension; J44.9 Chronic obstructive pulmonary disease, unspecified; E11.9 Type 2 diabetes mellitus without complications; Z87.442 Personal history of urinary calculi; Z86.14 Personal history of Methicillin resistant Staphylococcus aureus infection; Z90.49 Acquired absence of other specified parts of digestive tract
CPT/HCPCS: 99282; 96372; J1885; J1100

== ENCOUNTER 2017-12-19 20:39 | Emergency (ER) | payer MEDICAID ==
--- NOTE | 2017-12-19 22:21 | RADIOLOGY REPORT (SQ) ---
EXAM DESCRIPTION: Right knee x-ray, four views. December 19, 2017 and 953PM CLINICAL HISTORY: pain after daughter sat on it COMPARISON: None FINDINGS: Four x-ray views of the right knee were submitted. The lateral view is rotated. There is no acute fracture or dislocation. Bone mineralization is within normal limits. There is no radiopaque foreign body material. IMPRESSION: No acute fracture or dislocation.
[2017-12-20] MEDS ORDERED: NAPROXEN 250 MG TABLET PO ONE (00:08)
--- NOTE | 2017-12-20 00:14 | ER Document Report ---
ED General - General Chief Complaint: Knee Pain Stated Complaint: KNEE PAIN Time Seen by Provider: 12/19/17 23:52 Notes: Patient is a 42-year-old female that presents to the emergency department for chief complaint of right knee pain. Patient states that around 730 today, her 10-year-old daughter was sitting on her knee, and rocking back and forth, and she felt a pop and pain sensation in her right knee, she did not notice any swelling, but it hurt more to walk on it. She describes the pain as a 4 out of 10 at this time as an aching and constant sensation, she did take Tylenol Motrin earlier this evening. She denies any numbness, tingling or weakness. Past Medical History: Denies chronic medical conditions Past Surgical History: Cholecystectomy, , tubal ligation Social History: Admits to smoking cigarettes daily, denies alcohol or drug use Family History: Reviewed and noncontributory for presenting illness Allergies: Reviewed, see documented allergy list. REVIEW OF SYSTEMS: Unless otherwise stated in this report the patient's positive and negative responses for review of systems for constitutional, eyes, ENT, cardiovascular, respiratory, gastrointestinal, neurological, genitourinary, musculoskeletal, and integumentary systems and related systems to the presenting problem are either as stated in the HPI or were not pertinent or were negative for the symptoms and/or complaints related to the presenting medical problem. PHYSICAL EXAMINATION: Vital signs reviewed, nursing noted reviewed. GENERAL: Well-appearing, well-nourished and in no acute distress. HEAD: Atraumatic, normocephalic. EYES: Eyes appear normal, extraocular movements intact, sclera anicteric, conjunctiva are normal. ENT: nares patent, oropharynx clear without exudates. Moist mucous membranes. NECK: Normal range of motion, supple without lymphadenopathy LUNGS: Breath sounds clear to auscultation bilaterally and equal. No wheezes rales or rhonchi. HEART: Regular rate and rhythm without murmurs ABDOMEN: Soft, nontender, normoactive bowel sounds. No rebound, guarding, or rigidity. No masses appreciated. EXTREMITIES: Mild joint line tenderness with palpation to the right knee. Mild discomfort with ROM of the knee, and varus and valgus stressing, joint instability, negative anterior and posterior drawer testing. The rest the patient's extremity exam is grossly, good range of motion, no pitting or edema. NEUROLOGICAL: No focal neurological deficits. Moves all extremities spontaneously Motor and sensory grossly intact on exam. PSYCH: Normal mood, normal affect. SKIN: Warm, Dry, normal turgor, no rashes or lesions noted on exposed skin TRAVEL OUTSIDE OF THE [place] IN LAST 30 DAYS: No - Related Data Allergies/Adverse Reactions: No Known Allergies Allergy (Verified 12/05/17 18:05) Past Medical History - Social History Smoking Status: Current Every Day Smoker Chew tobacco use (# tins/day): No Frequency of alcohol use: None Drug Abuse: None Family History: Arthritis, CAD, CVA, DM, Hyperlipidemia, Hypertension Patient has suicidal ideation: No Patient has homicidal ideation: No - Past Medical History Cardiac Medical History: Reports: Hx Hypertension Pulmonary Medical History: Reports: Hx Asthma, Hx Bronchitis, Hx COPD Endocrine Medical History: Reports: Hx Diabetes Mellitus Type 2 Renal/ Medical History: Reports: Hx Kidney Stones - 2007. Denies: Hx Peritoneal Dialysis Musculoskeletal Medical History: Reports Hx Musculoskeletal Deformity, Reports Hx Musculoskeletal Trauma Skin Medical History: Reports Hx Cellulitis, Reports Hx MRSA Psychiatric Medical History: Reports: Hx Anxiety Infectious Medical History: Reports: Hx MRSA Past Surgical History: Reports: Hx Adenoidectomy, Hx Section, Hx Cholecystectomy, Hx Dilation and Curettage, Hx Kidney (Renal Surgery) - Lithotripsy 11/26, Hx Tonsillectomy, Hx Tubal Ligation, Hx Urinary Tract Surgery - Bladder sling - Immunizations Immunizations up to date: Yes Hx Diphtheria, Pertussis, Tetanus Vaccination: Yes - 2007 Physical Exam - Vital signs Vitals: Temp Pulse Resp BP Pulse Ox 99.8 F 99 16 143/80 H 97 12/19/17 21:21 12/19/17 21:21 12/19/17 21:21 12/19/17 21:21 12/19/17 21:21 Course - Re-evaluation Re-evalutation: Patient seen and examined vital signs reviewed. Patient was evaluated and treated as appropriate for the patient's presenting symptoms and complaint, with consideration of any critical or life threatening conditions that may be associated with their obtained history and exam as noted above. Patient was treated with naproxen and an Mauro wrap The patient was re-evaluated and was improved and stable Evaluation was most consistent with right knee strain, x-rays reviewed and negative, will discharge the patient home on naproxen, and follow-up with orthopedics or her primary care. Plan of care was discussed with the patient at this point, after careful consideration I feel that that patient can be discharged from the emergency department, the patient was educated treatments and reasons to return to the emergency department based on their presumed diagnosis as noted above, they were advised to followup with a primary care physician in 2-3 days. Patient was agreeable to plan of care. *Note is created using voice recognition software and may contain spelling, syntax or grammatical errors. Knee X-Ray 12/19/17 00:00 IMPRESSION: No acute fracture or dislocation. - Vital Signs Vital signs: Temp Pulse Resp BP Pulse Ox 99.8 F 99 16 143/80 H 97 12/19/17 21:21 12/19/17 21:21 12/19/17 21:21 12/19/17 21:21 12/19/17 21:21 Discharge - Discharge Clinical Impression: Knee pain Qualifiers: Chronicity: acute Laterality: right Qualified Code(s): M25.561 - Pain in right knee Condition: Stable Disposition: HOME, SELF-CARE Instructions: Sprained Knee ([facility]) Additional Instructions: Please use warm or cool compresses for 20 minutes on a 20 minutes off, take prescription naproxen as directed, and follow-up with your primary care or orthopedics. Prescriptions: Naproxen [Naprosyn] 500 mg PO Q12H PRN #30 tablet PRN Reason: knee pain Referrals: BETTINA DOE MD [Primary Care Provider] - Follow up in 3-5 days CARISSA MACKENZIE MD [ACTIVE STAFF] - Follow up as needed (orthopedics)
[2017-12-20 00:23] VITALS: BP 141/84
== END 2017-12-20 00:22 | disposition home or self-care (01) ==
LOC: ER 20:39
DX: M25.561 Pain in right knee (principal); F17.210 Nicotine dependence, cigarettes, uncomplicated; E11.9 Type 2 diabetes mellitus without complications; I10 Essential (primary) hypertension; J44.9 Chronic obstructive pulmonary disease, unspecified
CPT/HCPCS: 99283; 73564; J3490

== ENCOUNTER 2018-01-21 23:25 | Emergency (ER) | payer MEDICAID ==
[2018-01-22 00:47] LABS: AMORPHOUS SEDIMENT,URINE TRACE /HPF; APPEARANCE,URINE CLOUDY; BILIRUBIN,URINE NEGATIVE (NEGATIVE); COLOR,URINE YELLOW; GLUCOSE, URINE NEGATIVE (NEGATIVE); KETONES,URINE NEGATIVE (NEGATIVE); LEUKOCYTE ESTERASE,URINE LARGE (NEGATIVE); NITRITE,URINE NEGATIVE (NEGATIVE); PROTEIN,URINE 30 mg/dL (NEGATIVE); URINE SPECIFIC GRAVITY 1.012; UROBILINOGEN,URINE NEGATIVE mg/dL (<2.0)
[2018-01-22] MEDS ORDERED: PHENAZOPYRIDINE HCL 200 MG TABLET PO ONE (00:58)
[2018-01-22] MEDS ORDERED: CEPHALEXIN 500 MG CAPSULE PO ONE (00:59)
[2018-01-22] MEDS ORDERED: ONDANSETRON 4 MG TAB.RAPDIS PO ONE (00:59)
--- NOTE | 2018-01-22 01:03 | ER Document Report ---
HPI - HPI Patient complains to provider of: Dysuria Pain Level: 4 Context: Patient is a 42-year-old female presenting to the emergency department complaining of urinary frequency since yesterday. Patient states today she noticed some dysuria which is why she presents to the emergency room. Patient denies any fever or vomiting, also denies vaginal discharge. Patient does state she is nauseous. Patient denies abdominal pain or back pain. Past medical history: None Medications: None Allergies: None Surgical history: section, tubal ligation, cholecystectomy Patient denies EtOH use, denies illicit drug use, admits to cigarette smoking. - REPRODUCTIVE Reproductive: DENIES: : - DERM Skin Color: Normal Past Medical History - General Information source: Patient - Social History Smoking Status: Current Every Day Smoker Lives with: Family Family History: Arthritis, CAD, CVA, DM, Hyperlipidemia, Hypertension Patient has suicidal ideation: No Patient has homicidal ideation: No - Past Medical History Cardiac Medical History: Reports: Hx Hypertension Pulmonary Medical History: Reports: Hx Asthma, Hx Bronchitis, Hx COPD Endocrine Medical History: Reports: Hx Diabetes Mellitus Type 2 Renal/ Medical History: Reports: Hx Kidney Stones - 2007. Denies: Hx Peritoneal Dialysis Musculoskeletal Medical History: Reports Hx Musculoskeletal Deformity, Reports Hx Musculoskeletal Trauma Skin Medical History: Reports Hx Cellulitis, Reports Hx MRSA Psychiatric Medical History: Reports: Hx Anxiety Infectious Medical History: Reports: Hx MRSA Past Surgical History: Reports: Hx Adenoidectomy, Hx Section, Hx Cholecystectomy, Hx Dilation and Curettage, Hx Kidney (Renal Surgery) - Lithotripsy 11/26, Hx Tonsillectomy, Hx Tubal Ligation, Hx Urinary Tract Surgery - Bladder sling - Immunizations Immunizations up to date: Yes Hx Diphtheria, Pertussis, Tetanus Vaccination: Yes - 2007 Vertical Provider Document - CONSTITUTIONAL Agree With Documented VS: Yes Notes: GENERAL: Alert, interacts well. No acute distress. HEAD: Normocephalic, atraumatic. EYES: Pupils equal, round, and reactive to light. Extraocular movements intact. ENT: Oral mucosa moist, tongue midline. NECK: Full range of motion. Supple. Trachea midline. LUNGS: Clear to auscultation bilaterally, no wheezes, rales, or rhonchi. No respiratory distress. HEART: Regular rate and rhythm. No murmur ABDOMEN: Soft, non-tender. Non-distended. Bowel sounds present in all 4 quadrants. Mild suprapubic tenderness upon palpation EXTREMITIES: Moves all 4 extremities spontaneously. No edema, normal radial and dorsalis pedis pulses bilaterally. No cyanosis. BACK: no cervical, thoracic, lumbar midline tenderness. No saddle anesthesia, normal distal neurovascular exam. No CVA tenderness bilaterally NEUROLOGICAL: Alert and oriented x3. Normal speech. cranial nerves II through XII grossly intact PSYCH: Normal affect, normal mood. SKIN: Warm, dry, normal turgor. No rashes or lesions noted. - INFECTION CONTROL TRAVEL OUTSIDE OF THE [place] IN LAST 30 DAYS: No Course - Re-evaluation Re-evalutation: 01/22/18 01:02 EDT Discussed patient's urine results with patient at bedside. Discussed need for antibiotic treatment. Will give Pyridium for pain and Zofran in case patient vomits at home. Discussed need to follow-up with primary care in the next 24- 48 hours. - Vital Signs Vital signs: Temp Pulse Resp BP Pulse Ox 98.8 F 106 H 18 139/87 H 95 01/21/18 23:36 01/21/18 23:36 01/21/18 23:36 01/21/18 23:36 01/21/18 23:36 - Laboratory Laboratory results interpreted by me: 01/22/18 00:11 Urine Protein 30 H Urine Blood MODERATE H Ur Leukocyte Esterase LARGE H Discharge - Discharge Clinical Impression: Urinary tract infection Qualifiers: Urinary tract infection type: acute cystitis Hematuria presence: with hematuria Qualified Code(s): N30.01 - Acute cystitis with hematuria Condition: Stable Disposition: HOME, SELF-CARE Instructions: Cephalexin ([facility]), Urinary Tract Infection ([facility]) Additional Instructions: As we discussed you have been seen and treated in the emergency department for a urinary tract infection. You should always follow-up with your primary care in the next 24-48 hours. Please take medications as prescribed. Also as we discussed you can use the Good Rx application on your smart form to get discounts on your prescriptions. Prescriptions: Cephalexin Monohydrate [Keflex 500 mg Capsule] 500 mg PO BID 7 Days #14 capsule Ondansetron [Zofran Odt 4 mg Tablet] 1 - 2 tab PO Q4H PRN #15 tab.rapdis PRN Reason: For Nausea/Vomiting Phenazopyridine HCl [Pyridium 200 mg Tablet] 200 mg PO TID #15 tablet Referrals: BETTINA DOE MD [Primary Care Provider] - Follow up as needed
[2018-01-22 01:32] VITALS: BP 124/71
== END 2018-01-22 01:32 | disposition home or self-care (01) ==
LOC: ER 23:25
DX: N30.01 Acute cystitis with hematuria (principal); F17.200 Nicotine dependence, unspecified, uncomplicated; I10 Essential (primary) hypertension; J44.9 Chronic obstructive pulmonary disease, unspecified; E11.9 Type 2 diabetes mellitus without complications; Z86.14 Personal history of Methicillin resistant Staphylococcus aureus infection; Z87.442 Personal history of urinary calculi
CPT/HCPCS: 99283; 87086; 81025; 87088; 81001; 87186; S0119; J3490

== ENCOUNTER 2018-04-01 15:24 | Emergency (ER) | payer MEDICAID ==
--- NOTE | 2018-04-01 15:55 | ER Document Report ---
ED Medical Screen (RME) - General Chief Complaint: Fall Injury Stated Complaint: FALL/ EYE AND ABDOMINAL PAIN Time Seen by Provider: 04/01/18 15:49 Notes: 43-year-old female patient reports her leg gave out and she fell on stairs at home at 6:30 AM this morning, over 9 hours ago. She reports she hit her left lateral eyebrow, left abdomen and right back on the banister. She has been taking Tylenol, Motrin, and ice packs to the left eye area. She states she has been unable to control the pain and swelling to the left eye region. There was no loss of consciousness. Patient is on chronic pain management. I have greeted and performed a rapid initial assessment of this patient. A comprehensive ED assessment and evaluation of the patient, analysis of test results and completion of the medical decision making process will be conducted by additional ED providers. TRAVEL OUTSIDE OF THE [place] IN LAST 30 DAYS: No - Related Data Allergies/Adverse Reactions: No Known Allergies Allergy (Verified 04/01/18 15:24) Past Medical History - Past Medical History Cardiac Medical History: Reports: Hx Hypertension Pulmonary Medical History: Reports: Hx Asthma, Hx Bronchitis, Hx COPD Endocrine Medical History: Reports: Hx Diabetes Mellitus Type 2 Renal/ Medical History: Reports: Hx Kidney Stones - 2007. Denies: Hx Peritoneal Dialysis Musculoskeltal Medical History: Reports Hx Musculoskeletal Deformity, Reports Hx Musculoskeletal Trauma Skin Medical History: Reports Hx Cellulitis, Reports Hx MRSA Psychiatric Medical History: Reports: Hx Anxiety Infectious Medical History: Reports: Hx MRSA Past Surgical History: Reports: Hx Adenoidectomy, Hx Section, Hx Cholecystectomy, Hx Dilation and Curettage, Hx Kidney (Renal Surgery) - Lithotripsy 11/26, Hx Tonsillectomy, Hx Tubal Ligation, Hx Urinary Tract Surgery - Bladder sling - Immunizations Immunizations up to date: Yes Hx Diphtheria, Pertussis, Tetanus Vaccination: Yes - 2007 Physical Exam - Vital signs Vitals: Temp Pulse Resp BP Pulse Ox 98.9 F 90 18 146/79 H 96 04/01/18 15:37 04/01/18 15:37 04/01/18 15:37 04/01/18 15:37 04/01/18 15:37 Course - Vital Signs Vital signs: Temp Pulse Resp BP Pulse Ox 98.9 F 90 18 146/79 H 96 04/01/18 15:37 04/01/18 15:37 04/01/18 15:37 04/01/18 15:37 04/01/18 15:37 Doctor's Discharge - Discharge Referrals: BETTINA DOE MD [Primary Care Provider] - Follow up as needed
--- NOTE | 2018-04-01 16:22 | RADIOLOGY REPORT (SQ) ---
EXAM DESCRIPTION: CT FACIAL AREA WITHOUT COMPLETED DATE/TIME: 04/01/2018 4:07 pm REASON FOR STUDY: fell on stairs, hit left orbital ridge COMPARISON: 06/23/2016 TECHNIQUE: Noncontrasted images through the facial bones and orbits windowed for bone and soft tissu e. Additional coronal and sagittal reconstructed images reviewed. All images stored on PACS. All CT scanners at this facility use dose modulation, iterative reconstruction, and/or weight based d osing when appropriate to reduce radiation dose to as low as reasonably achievable (ALARA). [facility]: Dose Right [facility]: CareDose [facility]: Dose Right [facility]: Teradose 4D [facility]: [employer] RADIATION DOSE: CT Rad equipment meets quality standard of care and radiation dose reduction techniq ues were employed. CTDIvol: 30.4 mGy. DLP: 513 mGy-cm. mGy. LIMITATIONS: None. FINDINGS: FACIAL BONES: No fracture or bone lesion. ORBITS: Intact. No fracture. Symmetric intact globes and retroorbital soft tissues. PARANASAL SINUSES: Severe mucoperiosteal thickening of the left maxillary sinus. No air-fluid level. Remainder of the paranasal sinuses are clear. SOFT TISSUES: No mass or edema. Retropharyngeal course of the right carotid arterial system. INFERIOR BRAIN: Limited view. No acute findings. OTHER: No other significant finding. IMPRESSION: 1. No acute fracture or dislocation of the facial bones. 2. Left maxillary sinusitis. TECHNICAL DOCUMENTATION: JOB ID: [id number] Quality ID # [id number]: Final reports with documentation of one or more dose reduction techniques (e.g., Au tomated exposure control, adjustment of the mA and/or kV according to patient size, use of iterative reconstruction technique) 2010 [employer]- All Rights Reserved Reading location - IP/workstation name: [email or web address]
[2018-04-01] MEDS ORDERED: AMOXICILLIN TR/POT CLAVULANATE 500-125 MG TAB PO ONE (17:23)
[2018-04-01] MEDS ORDERED: LIDOCAINE 5% (700 MG) TRANSDERMAL ADH..PATCH TP ONE (17:23)
[2018-04-01] MEDS ORDERED: HYDROCODONE/ACETAMINOPHEN 5-325 MG (6 TAB/ER DISP) PO PRN (17:28)
--- NOTE | 2018-04-01 17:30 | ER Document Report ---
HPI - HPI Patient complains to provider of: Facial injury Time Seen by Provider: 04/01/18 15:49 Onset: This morning Onset/Duration: Sudden Quality of pain: Achy Pain Level: 3 Context: Patient states she was coming down the stairs lost her step and fell hitting her left brow on the handrail. Patient denies any loss of consciousness nausea or vomiting. Patient reports hitting her left side on the steps and her right lower back. Patient denies any urinary problems. Associated Symptoms: Headache - Left brow area, Other - Right lower back, left side. denies: Nonproductive cough, Nausea, Vomiting Exacerbated by: Denies Relieved by: Denies Similar symptoms previously: No Recently seen / treated by doctor: No - ROS ROS below otherwise negative: Yes Systems Reviewed and Negative: Yes All other systems reviewed and negative - CONSTITUTIONAL Constitutional: DENIES: Fever - NEURO Neurology: REPORTS: Headache. DENIES: Weakness, Vision blurred - RESPIRATORY Respiratory: DENIES: Coughing - GASTROINTESTINAL Gastrointestinal: REPORTS: Abdominal Pain - Left lateral side. DENIES: Nausea, Patient vomiting - URINARY Urinary: DENIES: Dysuria - REPRODUCTIVE Reproductive: DENIES: : - MUSCULOSKELETAL Musculoskeletal: REPORTS: Back Pain. DENIES: Extremity pain - DERM Skin Color: Normal Skin Problems: None Past Medical History - General Information source: Patient - Social History Smoking Status: Current Every Day Smoker Smoking Education Provided: Yes Frequency of alcohol use: None Drug Abuse: None Occupation: None Lives with: Family Family History: Arthritis, CAD, CVA, DM, Hyperlipidemia, Hypertension Patient has suicidal ideation: No Patient has homicidal ideation: No - Past Medical History Cardiac Medical History: Reports: Hx Hypertension Pulmonary Medical History: Reports: Hx Asthma, Hx Bronchitis, Hx COPD Endocrine Medical History: Reports: Hx Diabetes Mellitus Type 2 Renal/ Medical History: Reports: Hx Kidney Stones - 2007. Denies: Hx Peritoneal Dialysis Musculoskeletal Medical History: Reports Hx Musculoskeletal Deformity, Reports Hx Musculoskeletal Trauma Skin Medical History: Reports Hx Cellulitis, Reports Hx MRSA Psychiatric Medical History: Reports: Hx Anxiety Infectious Medical History: Reports: Hx MRSA Past Surgical History: Reports: Hx Adenoidectomy, Hx Section, Hx Cholecystectomy, Hx Dilation and Curettage, Hx Kidney (Renal Surgery) - Lithotripsy 11/26, Hx Tonsillectomy, Hx Tubal Ligation, Hx Urinary Tract Surgery - Bladder sling - Immunizations Immunizations up to date: Yes Hx Diphtheria, Pertussis, Tetanus Vaccination: Yes - 2007 Vertical Provider Document - CONSTITUTIONAL Agree With Documented VS: Yes Exam Limitations: No Limitations General Appearance: WD/WN, No Apparent Distress - INFECTION CONTROL TRAVEL OUTSIDE OF THE [place] IN LAST 30 DAYS: No - HEENT HEENT: Normal ENT Exam, Normocephalic, PERRLA Notes: Mild swelling to the left lateral brow area. Extraocular movements intact, no pain with movement of the eye - NECK Neck: Normal Inspection, Supple. negative: Lymphadenopathy-Left, Lymphadenopathy-Right - RESPIRATORY Respiratory: Breath Sounds Normal, No Respiratory Distress - CARDIOVASCULAR Cardiovascular: Regular Rate, Regular Rhythm, No Murmur - GI/ABDOMEN Gastrointestinal: Abdomen Soft, Abdomen Tender - Left lateral side tenderness, no ecchymosis, no abrasion, Normal Bowel Sounds. negative: Spleenomegaly, Abdominal Mass - BACK Back: Abnormal Inspection - Right lower lumbar paraspinal tenderness, no midline tenderness step-off or deformity. negative: CVA Tenderness-Right, CVA Tenderness-Left - MUSCULOSKELETAL/EXTREMETIES Musculoskeletal/Extremeties: MAEW, FROM, Non-Tender - NEURO Level of Consciousness: Awake, Alert, Appropriate Motor/Sensory: No Motor Deficit - DERM Integumentary: Warm, Dry, No Rash Course - Re-evaluation Re-evalutation: 04/01/18 17:[address] ordered after head injury incidental sinusitis was noted. Will cover with antibiotics. Patient does report having cough symptoms for the past 3 weeks. Patient with lateral side tenderness, no evidence of trauma. Offered patient further imaging, patient declines not feeling that she struck her side hard enough to warrant imaging at this time. The patient presents with low back pain without signs of spinal cord compression, cauda equina syndrome, infection, aneurysm, or other serious etiology. The patient is neurologically intact. Given the extremely risk of these diagnoses further testing and evaluation for these possibilities does not appear to be indicated at this time. The patient presents with headache without signs of SPINDLE PLUMBER bleed, stroke, infection, or other serious etiology. The patient is neurologically intact. Given the extremely low risk of these diagnoses further testing and evaluation for these possibilities does not appear to be indicated at this time. The patient has been instructed to return if the symptoms worsen or change in any way. - Vital Signs Vital signs: Temp Pulse Resp BP Pulse Ox 98.9 F 90 18 146/79 H 96 04/01/18 15:37 04/01/18 15:37 04/01/18 15:37 04/01/18 15:37 04/01/18 15:37 Discharge - Discharge Clinical Impression: Side pain Fall Qualifiers: Encounter type: initial encounter Qualified Code(s): W19.XXXA - Unspecified fall, initial encounter Head injury Qualifiers: Encounter type: initial encounter Qualified Code(s): S09.90XA - Unspecified injury of head, initial encounter Sinusitis Qualifiers: Sinusitis location: unspecified location Chronicity: acute Recurrence: not specified as recurrent Qualified Code(s): J01.90 - Acute sinusitis, unspecified Low back pain Qualifiers: Chronicity: acute Back pain laterality: right Sciatica presence: without sciatica Qualified Code(s): M54.5 - Low back pain Condition: Stable Disposition: HOME, SELF-CARE Instructions: Augmentin ([facility]), Head Injury Precautions ([facility]), Low Back Pain ([facility]), Oral Narcotic Medication ([facility]), Sinusitis ([facility]) Additional Instructions: Return immediately for any new or worsening symptoms Followup with your primary care provider, call tomorrow to make a followup appointment Prescriptions: Amox Tr/Potassium Clavulanate [Augmentin 875-125 Tablet] 1 tab PO BID 10 Days tablet Fluticasone Propionate [Flonase Nasal [place] 50 Mcg/[place] 16 gm] 2 spray NASL DAILY #1 bottle Forms: Smoking Cessation Education Referrals: BETTINA DOE MD [Primary Care Provider] - Follow up as needed
[2018-04-01 18:15] VITALS: BP 138/85
== END 2018-04-01 18:20 | disposition home or self-care (01) ==
LOC: ER 15:24
DX: S09.93XA Unspecified injury of face, initial encounter (principal); J01.90 Acute sinusitis, unspecified; M54.5 Low back pain; R51 Headache; R10.9 Unspecified abdominal pain; W19.XXXA Unspecified fall, initial encounter; F17.200 Nicotine dependence, unspecified, uncomplicated; I10 Essential (primary) hypertension; J44.9 Chronic obstructive pulmonary disease, unspecified; E11.9 Type 2 diabetes mellitus without complications
CPT/HCPCS: 99284; 70486; J3490 ×2

== ENCOUNTER 2018-04-13 18:47 | Emergency (ER) | payer MEDICAID ==
[2018-04-13] MEDS ORDERED: DEXAMETHASONE SOD PHOS INJ 10 MG/1 ML VIAL IM ONE (20:11)
[2018-04-13] MEDS ORDERED: KETOROLAC TROMETHAMINE 60 MG/2 ML SDV IM ONE (20:11)
--- NOTE | 2018-04-13 20:18 | ER Document Report ---
HPI - HPI Time Seen by Provider: 04/13/18 19:28 Pain Level: 4 Notes: Patient is a 43-year-old female who presents with chief complaint of low back pain. Patient reports history of chronic back pain, states this is a "flareup of her back pain. Patient reports she is to be on pain management in [place] until January when her car broke down and she was no longer able to travel all the way to [place]. Patient reports that she has been out of medication since then and has been "toughing it out". Patient denies any incontinence of bowels, denies any urinary retention and reports no numbness or tingling or saddle anesthesia. - REPRODUCTIVE LMP: 03-07-18 Reproductive: DENIES: : Past Medical History - General Information source: Patient - Social History Smoking Status: Current Every Day Smoker Chew tobacco use (# tins/day): No Frequency of alcohol use: None Drug Abuse: None Family History: Arthritis, CAD, CVA, DM, Hyperlipidemia, Hypertension Patient has suicidal ideation: No Patient has homicidal ideation: No - Past Medical History Cardiac Medical History: Reports: Hx Hypertension Pulmonary Medical History: Reports: Hx Asthma, Hx Bronchitis, Hx COPD Endocrine Medical History: Reports: Hx Diabetes Mellitus Type 2 Renal/ Medical History: Reports: Hx Kidney Stones - 2007. Denies: Hx Peritoneal Dialysis Musculoskeletal Medical History: Reports Hx Musculoskeletal Deformity, Reports Hx Musculoskeletal Trauma Skin Medical History: Reports Hx Cellulitis, Reports Hx MRSA Psychiatric Medical History: Reports: Hx Anxiety Infectious Medical History: Reports: Hx MRSA Past Surgical History: Reports: Hx Adenoidectomy, Hx Section, Hx Cholecystectomy, Hx Dilation and Curettage, Hx Kidney (Renal Surgery) - Lithotripsy 11/26, Hx Tonsillectomy, Hx Tubal Ligation, Hx Urinary Tract Surgery - Bladder sling - Immunizations Immunizations up to date: Yes Hx Diphtheria, Pertussis, Tetanus Vaccination: Yes - 2007 Vertical Provider Document - CONSTITUTIONAL Notes: PHYSICAL EXAMINATION: GENERAL: Well-appearing, well-nourished and in no acute distress. HEAD: Atraumatic, normocephalic. EYES: Pupils equal round extraocular movements intact, conjunctiva are normal. ENT: Nares patent NECK: Normal range of motion LUNGS: No respiratory distress Musculoskeletal: Normal range of motion, tenderness to palpation along lumbar paraspinous muscles on the right side, no vertebral tenderness. NEUROLOGICAL: Normal speech, normal gait. PSYCH: Normal mood, normal affect. SKIN: Warm, Dry, normal turgor, no rashes or lesions noted. - INFECTION CONTROL TRAVEL OUTSIDE OF THE [place] IN LAST 30 DAYS: No Course - Re-evaluation Re-evalutation: 04/13/18 20:19 I discussed with patient that we do not provide opioids for chronic pain. I did offer her diclofenac gel, Toradol and a short course of Flexeril and she states Flexeril has helped her when she has acute flareups. Patient reports that she has an appointment set up with pain management at [facility] in [place] for 04/25/18 as she is unable to travel all the way to [place] due to her recent car issues. Patient given ED return precautions. - Vital Signs Vital signs: Temp Pulse Resp BP Pulse Ox 99.1 F 95 18 155/93 H 98 04/13/18 19:06 04/13/18 19:06 04/13/18 19:06 04/13/18 19:06 04/13/18 19:06 Discharge - Discharge Clinical Impression: Back pain Qualifiers: Back pain location: low back pain Chronicity: chronic Back pain laterality: right Sciatica presence: unspecified whether sciatica present Qualified Code(s): M54.5 - Low back pain; G89.29 - Other chronic pain Condition: Stable Disposition: HOME, SELF-CARE Additional Instructions: You are seen today for your back pain. Please take medications as prescribed. Follow-up with your pain management doctor. Prescriptions: Cyclobenzaprine HCl [Flexeril 10 mg Tablet] 10 mg PO QHS PRN #15 tablet PRN Reason: Ketorolac Tromethamine [Toradol 10 mg Tablet] 10 mg PO Q8HP PRN #20 tablet PRN Reason: Diclofenac Sodium [Voltaren] 100 gm TP BID #1 tube Referrals: BETTINA DOE MD [Primary Care Provider] - Follow up as needed
[2018-04-13 21:05] VITALS: BP 145/85
== END 2018-04-13 21:06 | disposition home or self-care (01) ==
LOC: ER 18:47
DX: M54.5 Low back pain (principal); F17.200 Nicotine dependence, unspecified, uncomplicated; I10 Essential (primary) hypertension; J44.9 Chronic obstructive pulmonary disease, unspecified; E11.9 Type 2 diabetes mellitus without complications; Z87.442 Personal history of urinary calculi; Z86.14 Personal history of Methicillin resistant Staphylococcus aureus infection; Z90.49 Acquired absence of other specified parts of digestive tract; Z98.51 Tubal ligation status
CPT/HCPCS: 99283; 96372; J1885; J1100

== ENCOUNTER 2018-04-14 06:28 | Emergency (ER) | payer MEDICAID ==
[2018-04-14 06:42] VITALS: BP 156/105
[2018-04-14] MEDS ORDERED: KETOROLAC TROMETHAMINE INJ/PF 30 MG/1 ML SDV IM ONE (07:57)
[2018-04-14] MEDS ORDERED: LIDOCAINE 5% (700 MG) TRANSDERMAL ADH..PATCH TP ONE (07:57)
[2018-04-14] MEDS ORDERED: CYCLOBENZAPRINE HCL 10 MG TABLET PO ONE (07:57)
--- NOTE | 2018-04-14 08:04 | ER Document Report ---
HPI - HPI Time Seen by Provider: 04/14/18 07:35 Pain Level: 4 Notes: Patient is a 43-year-old female with a history of chronic back pain who presents the emergency department complaining of continued lower back pain with some radiculitis into her right buttock that has been going on for "a while now." Patient has Medicare of pain management in [place], but has not been able to make it down there since her car . Patient states that she is scheduled for an appointment with pain management locally in 10 days. Patient was here yesterday and received Toradol, Decadron, Voltaren gel, and muscle relaxer. Patient states that she was unable to fill the Flexeril and Voltaren gel as she got home close to 10:00 last night. Patient states that she did get some relief from the injections, but it did not take it all away and patient is here now with continued pain. Patient states that she has not had any precipitating injury recently to be exacerbated. She is eating and drinking without difficulty. She is urinating normally and having normal bowel movements. Denies IV drug abuse. No history of spinal abscess. Denies any headache, fever, neck pain, URI, sore throat, chest pain, palpitations, syncope, cough, shortness of breath, wheeze, dyspnea, abdominal pain, nausea/vomiting/diarrhea, urinary retention, dysuria, hematuria, loss of control of bowel or bladder, numbness/tingling, saddle anesthesia, muscle paralysis/weakness, or rash. - ROS Systems Reviewed and Negative: Yes All other systems reviewed and negative - CONSTITUTIONAL Constitutional: DENIES: Fever, Chills - EENT EENT: DENIES: Sore Throat, Ear Pain, Eye problems - NEURO Neurology: DENIES: Headache, Weakness, Vision blurred, Dizzinesss / Vertigo - CARDIOVASCULAR Cardiovascular: DENIES: Chest pain - RESPIRATORY Respiratory: DENIES: Trouble Breathing, Coughing - GASTROINTESTINAL Gastrointestinal: DENIES: Abdominal Pain, Black / Bloody Stools - URINARY Urinary: DENIES: Dysuria, Urgency - REPRODUCTIVE Reproductive: DENIES: : - MUSCULOSKELETAL Musculoskeletal: REPORTS: Extremity pain - left shoulder Past Medical History - Social History Smoking Status: Current Every Day Smoker Chew tobacco use (# tins/day): No Frequency of alcohol use: None Drug Abuse: None Family History: Arthritis, CAD, CVA, DM, Hyperlipidemia, Hypertension Patient has suicidal ideation: No Patient has homicidal ideation: No - Past Medical History Cardiac Medical History: Reports: Hx Hypertension Pulmonary Medical History: Reports: Hx Asthma, Hx Bronchitis, Hx COPD Endocrine Medical History: Reports: Hx Diabetes Mellitus Type 2 Renal/ Medical History: Reports: Hx Kidney Stones - 2007. Denies: Hx Peritoneal Dialysis Musculoskeletal Medical History: Reports Hx Musculoskeletal Deformity, Reports Hx Musculoskeletal Trauma Skin Medical History: Reports Hx Cellulitis, Reports Hx MRSA Psychiatric Medical History: Reports: Hx Anxiety Infectious Medical History: Reports: Hx MRSA Past Surgical History: Reports: Hx Adenoidectomy, Hx Section, Hx Cholecystectomy, Hx Dilation and Curettage, Hx Kidney (Renal Surgery) - Lithotripsy 11/26, Hx Tonsillectomy, Hx Tubal Ligation, Hx Urinary Tract Surgery - Bladder sling - Immunizations Immunizations up to date: Yes Hx Diphtheria, Pertussis, Tetanus Vaccination: Yes - 2007 Vertical Provider Document - CONSTITUTIONAL Agree With Documented VS: Yes Notes: PHYSICAL EXAMINATION: GENERAL: Well-appearing, well-nourished and in no acute distress. LUNGS: Breath sounds clear to auscultation bilaterally and equal. No wheezes rales or rhonchi. HEART: Regular rate and rhythm without murmurs, rubs, gallops. ABDOMEN: Soft, nontender, nondistended abdomen. No guarding, no rebound. No masses appreciated. Normal bowel sounds present. No CVA tenderness bilaterally. No pulsatile mass Musculoskeletal: LE's b/l: FROM to passive/active. Strength 5+/5. No deficits noted. No bony tenderness of extremities. Back: FROM to passive/active. Strength 5+/5. No vertebral point tenderness, stepoffs, or deformities. No other bony tenderness, erythema, swelling, or ecchymosis. SLR negative b/l. + mild tenderness to the L-paraspinal mm Rt. Mild spasming. No SI jt tenderness. No foot drop Extremities: No cyanosis, clubbing, or edema b/l. Peripheral pulses 2+. Capillary refill less than 2 seconds. NEUROLOGICAL: Normal speech, normal gait. Normal sensory, motor exams. Reflexes 2+ b/l. PSYCH: Normal mood, normal affect. SKIN: Warm, Dry, normal turgor, no rashes or lesions noted. - INFECTION CONTROL TRAVEL OUTSIDE OF THE [place] IN LAST 30 DAYS: No Course - Re-evaluation Re-evalutation: 04/14/18 08:00 Patient is an afebrile, well-hydrated, 43-year-old female who presents to the ED with acute on chronic low back pain. Vitals are acceptable. PE is otherwise unremarkable for any focal neurological deficits. Patient was given Toradol, flexeril PO, and Lidoderm patch. She has no significant tachycardia, tachypnea, or hypoxia. She is nontoxic-appearing and is tolerating p.o. without difficulties. There are no signs of infection. No other red flag symptoms noted. No other labs or imaging warranted at this time based on H&P. Low suspicion for any meningitis, fracture, expanding/ruptured AAA, cauda equina syndrome, epidural mass lesion/abscess, herniated disc causing severe spinal stenosis, or other systemic infection at this time. Patient is aware that this condition can change from initial presentation and that she needs monitor symptoms closely for any acute changes. Patient already has several medications that were prescribed to her yesterday to take as needed. No narcotics warranted. Conservative measures otherwise for symptoms. Recheck with your PCM in 3-5 days. Consider consult with orthopedic/physical therapy. Return to the ED with any worsening/concerning symptoms otherwise as reviewed discharge. Patient is in agreement. - Vital Signs Vital signs: Temp Pulse Resp BP Pulse Ox 97.8 F 92 18 156/105 H 97 04/14/18 06:35 04/14/18 06:35 04/14/18 06:35 04/14/18 06:35 04/14/18 06:35 Discharge - Discharge Clinical Impression: Low back pain Qualifiers: Chronicity: acute Back pain laterality: right Sciatica presence: unspecified whether sciatica present Qualified Code(s): M54.5 - Low back pain Condition: Stable Disposition: HOME, SELF-CARE Instructions: Low Back Pain ([facility]) Additional Instructions: Rest, Ice Tylenol/ibuprofen as needed Light stretches daily Strength exercises as able Moist heat and massage may help F/u with your PCP in 3-5 days for a recheck Consider consult(s) with Orthopedics/physical therapy for ongoing/worsening symptoms Return to the ED with any worsening symptoms and/or development of fever, headache, chest pain, palpitations, syncope, shortness of breath, trouble breathing, abdominal pain, n/v/d, blood in stool/urine, loss of control of bowel/bladder, urinary retention, muscle weakness/paralysis, saddle anesthesia, numbness/tingling, or other worsening symptoms that are concerning to you. Forms: Elevated Blood Pressure, Smoking Cessation Education Referrals: BETTINA DOE MD [Primary Care Provider] - Follow up as needed [facility] [Provider Group] - Follow up as needed
== END 2018-04-14 08:15 | disposition home or self-care (01) ==
LOC: ER 06:28
DX: M54.5 Low back pain (principal); G89.29 Other chronic pain; M25.512 Pain in left shoulder; R25.2 Cramp and spasm; F17.200 Nicotine dependence, unspecified, uncomplicated; I10 Essential (primary) hypertension; J44.9 Chronic obstructive pulmonary disease, unspecified; E11.9 Type 2 diabetes mellitus without complications
CPT/HCPCS: 99283; 96372; J3490 ×2; J1885

== ENCOUNTER 2018-04-23 21:50 | Emergency (ER) | payer MEDICAID ==
[2018-04-23 22:06] VITALS: BP 148/78
[2018-04-23] MEDS ORDERED: PHENAZOPYRIDINE HCL 200 MG TABLET PO ONE (22:19)
--- NOTE | 2018-04-23 22:22 | ER Document Report ---
ED GI/ - General Chief Complaint: Urinary Frequency Stated Complaint: URINARY PROBLEM Time Seen by Provider: 04/23/18 22:10 Primary Care Provider: BETTINA DOE MD [Primary Care Provider] - Follow up as needed Mode of Arrival: Ambulatory Information source: Patient, [facility] Records Notes: 43-year-old female patient comes emerged from this evening complaining of bu rning with urination, sharp spasm type pains in the bladder region. States it feels like razor blades when she urinates. She states it is similar to discomfort she has felt with kidney stones in the past. She also has URI symptoms with cough and states she has had low-grade fevers. Review of the records shows that she has been on chronic pain management for quite some time. Her last prescription for Percocet 10 mg number 130 tablets was on 02/02/2018. She was given a prescription for Catapres patches on 03/08/2018, it appears that she is been switched to Catapres and taken off narcotic management of her chronic pain. She did come to the emergency room on 04/13/2018 again on 04/14/2018 complaining of back pain. TRAVEL OUTSIDE OF THE [place] IN LAST 30 DAYS: No - Related Data Allergies/Adverse Reactions: No Known Allergies Allergy (Verified 04/01/18 15:24) Past Medical History - General Information source: Patient, [facility] Records - Social History Smoking Status: Current Every Day Smoker Cigarette use (# per day): Yes Chew tobacco use (# tins/day): No Smoking Education Provided: No Frequency of alcohol use: None Lives with: Family Family History: Arthritis, CAD, CVA, DM, Hyperlipidemia, Hypertension - Past Medical History Cardiac Medical History: Reports: Hx Hypertension Pulmonary Medical History: Reports: Hx Asthma, Hx Bronchitis, Hx COPD Endocrine Medical History: Reports: Hx Diabetes Mellitus Type 2 Renal/ Medical History: Reports: Hx Kidney Stones - 2007 Musculoskeletal Medical History: Reports Hx Musculoskeletal Deformity, Reports Hx Musculoskeletal Trauma Skin Medical History: Reports Hx Cellulitis, Reports Hx MRSA Psychiatric Medical History: Reports: Hx Anxiety Infectious Medical History: Reports: Hx MRSA Past Surgical History: Reports: Hx Adenoidectomy, Hx Section, Hx Cholecystectomy, Hx Dilation and Curettage, Hx Kidney (Renal Surgery) - Lithotripsy 11/26, Hx Tonsillectomy, Hx Tubal Ligation, Hx Urinary Tract Surgery - Bladder sling - Immunizations Immunizations up to date: Yes Hx Diphtheria, Pertussis, Tetanus Vaccination: Yes - 2007 Physical Exam - Vital signs Vitals: Temp Pulse Resp BP Pulse Ox 99.9 F 105 H 16 148/78 H 95 04/23/18 22:06 04/23/18 22:06 04/23/18 22:06 04/23/18 22:06 04/23/18 22:06 Course - Vital Signs Vital signs: Temp Pulse Resp BP Pulse Ox 99.9 F 105 H 16 148/78 H 95 04/23/18 22:06 04/23/18 22:06 04/23/18 22:06 04/23/18 22:06 04/23/18 22:06 - Laboratory Laboratory results interpreted by me: 04/23/18 22:23 Urine Protein 100 H Urine Blood MODERATE H Ur Leukocyte Esterase LARGE H Discharge - Discharge Clinical Impression: Budding yeast detected Urinary tract infection Qualifiers: Urinary tract infection type: acute cystitis Hematuria presence: with hematuria Qualified Code(s): N30.01 - Acute cystitis with hematuria Condition: Stable Disposition: HOME, SELF-CARE Additional Instructions: Urinary Tract Infection Your evaluation indicates that you have a urinary tract infection. This is due to germs growing in the bladder. This is a common problem. This infection usually responds quickly to antibiotics. Your antibiotic should be taken exactly as prescribed. Drink plenty of fluids -- three to four quarts a day. Occasionally, a bladder anesthetic will be prescribed to help stop the feeling of urgency until the antibiotic has a chance to clear the infection. This may cause your urine to be dark orange. Certain urine infections require a culture. If the doctor obtained a culture, the results will be back in two days. You should call to see if a change in treatment is needed. A repeat urinalysis after you finish treatment is often recommended. The physician will let you know if further testing is required. Call the doctor if you develop fever, chills, flank pain, inability to urinate, or blood in the urine. Vaginal Yeast Infection You have evidence of a yeast infection -- called "tk." A vaginal yeast infection often causes itching and discharge. While not dangerous, it can be very unpleasant. A yeast infection often follows the use of powerful antibiotics. It is more likely to occur in diabetics. The treatment now is usually a single pill of Diflucan, but also an antifungal cream or suppository may be used for a few days. You do not need to avoid sexual intercourse. Recurrences are common. You can make a recurrence less likely by wearing cotton underwear and avoiding tight clothing. For mild recurrences, you can try [id number] creams or suppositories that are made specifically for yeast. If the symptoms do not resolve, you should follow up for re-examination. Sometimes treatment of the sexual partner is necessary if infections are recurrent. You have a bladder infection and also had budding yeast in your urine. You will be prescribed an antibiotic to take 3 times daily for the next 5 days. You will also be prescribed a yeast pill to take every other day for 3 doses, starting tomorrow. You will be prescribed a medicine called Pyridium which will turn your urine orange color, and help anesthetize the bladder and urethra so it does not burn and sting so much. The urine will be cultured, so if it grows a bacteria resistant to your antibiotics, you will be contacted and have a change in the medication. Drink lots of fluids throughout the day and evening. Cranberry juice is known to help clear up urine infections quicker. Follow-up with your doctor if not improving. RETURN TO THE EMERGENCY ROOM IF ANY NEW OR WORSENING SYMPTOMS. Prescriptions: Cephalexin Monohydrate [Keflex 500 mg Capsule] 500 mg PO TID #15 capsule Fluconazole [Diflucan] 100 mg PO ASDIR PRN #3 tablet PRN Reason: Phenazopyridine HCl [Pyridium 200 mg Tablet] 200 mg PO TID #10 tablet Referrals: BETTINA DOE MD [Primary Care Provider] - Follow up as needed
[2018-04-23 22:40] LABS: APPEARANCE,URINE CLOUDY; BILIRUBIN,URINE NEGATIVE (NEGATIVE); COLOR,URINE YELLOW; GLUCOSE, URINE NEGATIVE (NEGATIVE); KETONES,URINE NEGATIVE (NEGATIVE); LEUKOCYTE ESTERASE,URINE LARGE (NEGATIVE); NITRITE,URINE NEGATIVE (NEGATIVE); PROTEIN,URINE 100 mg/dL (NEGATIVE); URINE SPECIFIC GRAVITY 1.016; UROBILINOGEN,URINE NEGATIVE mg/dL (<2.0)
[2018-04-23] MEDS ORDERED: CEPHALEXIN 500 MG CAPSULE PO ONE (22:42)
[2018-04-23] MEDS ORDERED: FLUCONAZOLE 100 MG TABLET PO ONE (22:44)
== END 2018-04-23 23:00 | disposition home or self-care (01) ==
LOC: ER 21:50
DX: N30.01 Acute cystitis with hematuria (principal); R35.0 Frequency of micturition; F17.210 Nicotine dependence, cigarettes, uncomplicated; I10 Essential (primary) hypertension; J44.9 Chronic obstructive pulmonary disease, unspecified; Z86.14 Personal history of Methicillin resistant Staphylococcus aureus infection; Z90.49 Acquired absence of other specified parts of digestive tract; Z98.51 Tubal ligation status
CPT/HCPCS: 99283; 87086; 87088; 81001; 87186; J3490 ×2

== ENCOUNTER → 2018-05-04 | Outpatient (CLI) | payer MEDICAID ==
--- NOTE | 2018-05-05 09:57 | RADIOLOGY REPORT (SQ) ---
EXAM DESCRIPTION: MRI LUMBAR SPINE WITHOUT COMPLETED DATE/TIME: 05/04/2018 8:42 pm REASON FOR STUDY: M54.16 RADICULOPATHY, LUMBAR REGION M54.5 LOW BACK PAIN M54.5 LOW BACK PAIN M54.1 6 RADICULOPATHY, LUMBAR REGION COMPARISON: None. TECHNIQUE: Sagittal and Axial imaging includes T1, T2, STIR and gradient echo sequences. Coronal T2/ HASTE imaging. LIMITATIONS: None. FINDINGS: VISUALIZED UPPER ABDOMEN: Limited evaluation. No acute or suspicious findings suggested. SEGMENTATION: No transitional anatomy. The lowest well-developed disc space is labeled L5-S1. ALIGNMENT: Anatomic. VERTEBRAE: Intact. BONE MARROW: There are endplate changes at L5-S1 with fatty replacement. DISC SIGNAL: There is loss of normal disc height and signal throughout the lumbar spine. POSTERIOR ELEMENTS: Generally intact. No pars defect evident. HARDWARE: None in the spine. CORD AND CONUS: Normal in size and signal intensity. Conus at the appropriate level. SOFT TISSUES: No aortic aneurysm seen. No bulky retroperitoneal adenopathy or mass. No paraspinal mas s or fluid. L1-L2: There is broad-based annular disc bulging which results in moderate central canal stenosis. T here is asymmetric narrowing of the left neural foramina. L2-L3: There is mild annular bulging and disc space narrowing. Mild central stenosis. Mild asymmetr ic narrowing of the left neural foramina due to asymmetric facet arthropathy. L3-L4: There is disc/osteophyte complex. There is facet arthropathy. There is bilateral foraminal s tenosis left greater than right. L4-L5: There is disc space narrowing. There is facet arthropathy. There is asymmetric bulging left of midline. This results in asymmetric narrowing of the left neural foramina. L5-S1: There is disc space narrowing and annular disc bulging. There is a focal left lateral protrus ion resulting in asymmetric narrowing of the left neural foramina. LOWER THORACIC: There is annular disc bulging at T11-T12. SACRUM: Visualized upper sacrum intact. OTHER: No other significant findings. IMPRESSION: 1. Multilevel spondylosis. 2. Moderate central canal stenosis at L1-L2 with asymmetric narrowing of the left neural foramina. 3. Mild central stenosis at L2-L3 with asymmetric narrowing of the left neural foramina. 4. Bilateral foraminal stenosis at L3-L4 left greater than right. 5. Asymmetric narrowing of the left neural foramina at L4-L5 due to asymmetric disc bulge. 6. Focal left lateral protrusion at L5-S1 with asymmetric narrowing of the left neural foramina. TECHNICAL DOCUMENTATION: JOB ID: [id number] [employer]- All Rights Reserved Reading location - IP/workstation name: [email or web address]
== END ==
LOC: RAD 20:06
PROVIDERS: ATTEND Physician Assistant
DX: M54.5 Low back pain (principal); M54.16 Radiculopathy, lumbar region; M48.02 Spinal stenosis, cervical region
CPT/HCPCS: 72148

== ENCOUNTER 2018-06-28 17:52 | Emergency (ER) | payer MEDICAID ==
--- NOTE | 2018-06-28 18:26 | ER Document Report ---
ED Medical Screen (RME) - General Chief Complaint: Chest Pain Stated Complaint: CHEST PAIN Time Seen by Provider: 06/28/18 18:21 Primary Care Provider: BRITT EDGE PA-C [Primary Care Provider] - Follow up as needed Notes: 43-year-old female with COPD on 2 L O2 at night who is a smoker presents to the emergency department for acute shortness of breath and chest pain that is worse when coughing. She states that she gets severely short of breath when walking just a few her bed to her bathroom. She took a DuoNeb at 1640 today. She said it did not help. She had a T-max of 102 at home orally earlier today. She said her chest pain is worse when coughing. I have greeted and performed a rapid initial assessment of this patient. A comprehensive ED assessment and evaluation of the patient, analysis of test results and completion of medical decision making process will be conducted by an additional ED providers. TRAVEL OUTSIDE OF THE [place] IN LAST 30 DAYS: No - Related Data Allergies/Adverse Reactions: No Known Allergies Allergy (Verified 04/01/18 15:24) Past Medical History - Past Medical History Cardiac Medical History: Reports: Hx Hypertension Pulmonary Medical History: Reports: Hx Asthma, Hx Bronchitis, Hx COPD Endocrine Medical History: Reports: Hx Diabetes Mellitus Type 2 Renal/ Medical History: Reports: Hx Kidney Stones - 2007. Denies: Hx Peritoneal Dialysis Musculoskeltal Medical History: Reports Hx Musculoskeletal Deformity, Reports Hx Musculoskeletal Trauma Skin Medical History: Reports Hx Cellulitis, Reports Hx MRSA Psychiatric Medical History: Reports: Hx Anxiety Infectious Medical History: Reports: Hx MRSA Past Surgical History: Reports: Hx Adenoidectomy, Hx Section, Hx Cholecystectomy, Hx Dilation and Curettage, Hx Kidney (Renal Surgery) - Lithotripsy 11/26, Hx Tonsillectomy, Hx Tubal Ligation, Hx Urinary Tract Surgery - Bladder sling - Immunizations Immunizations up to date: Yes Hx Diphtheria, Pertussis, Tetanus Vaccination: Yes - 2007 Physical Exam - Vital signs Vitals: Temp Pulse Resp BP Pulse Ox 99.3 F 110 H 26 H 152/74 H 89 L 06/28/18 17:55 06/28/18 17:55 06/28/18 17:55 06/28/18 17:55 06/28/18 17:55 Course - Vital Signs Vital signs: Temp Pulse Resp BP Pulse Ox 99.3 F 110 H 26 H 152/74 H 89 L 06/28/18 17:55 06/28/18 17:55 06/28/18 17:55 06/28/18 17:55 06/28/18 17:55 Doctor's Discharge - Discharge Referrals: BRITT EDGE PA-C [Primary Care Provider] - Follow up as needed
[2018-06-28] MEDS ORDERED: IPRATROPIUM/ALBUTEROL 0.5-2.5 MG/3 ML AMPUL NEB ONE (18:27)
[2018-06-28] MEDS ORDERED: METHYLPREDNISOLONE INJ 125 MG/2 ML SDV IV ONE (18:27)
--- NOTE | 2018-06-28 19:06 | RADIOLOGY REPORT (SQ) ---
EXAM DESCRIPTION: CHEST 2 VIEWS COMPLETED DATE/TIME: 06/28/2018 6:54 pm REASON FOR STUDY: SOB COMPARISON: 08/15/2017 EXAM PARAMETERS: NUMBER OF VIEWS: two views TECHNIQUE: Digital Frontal and Lateral radiographic views of the chest acquired. RADIATION DOSE: NA LIMITATIONS: none FINDINGS: LUNGS AND PLEURA: Ill-defined opacification bilaterally suggesting mild pulmonary edema. MEDIASTINUM AND HILAR STRUCTURES: No masses or contour abnormalities. HEART AND VASCULAR STRUCTURES: Heart size is within normal limits. BONES: No acute findings. HARDWARE: None in the chest. OTHER: No other significant finding. IMPRESSION: Mild pulmonary edema. TECHNICAL DOCUMENTATION: JOB ID: [id number] [employer]- All Rights Reserved Reading location - IP/workstation name: [email or web address]
[2018-06-28 19:31] LABS: ABSOLUTE BASOPHILS # (AUTO) 0.1 10^3/uL (0.0-0.2); ABSOLUTE EOSINOPHILS # (AUTO) 0.5 10^3/uL (0.0-0.6); ABSOLUTE LYMPHOCYTES (AUTO) 1.8 10^3/uL (0.5-4.7); ABSOLUTE MONOCYTES (AUTO) 1.2 10^3/uL (0.1-1.4); ABSOLUTE NEUT (AUTO) 9.4 10^3/uL (1.7-8.2); BASOPHILS % (AUTO) 0.8 % (0-2); EOSINOPHILS % (AUTO) 3.8 % (0-6); HEMATOCRIT 34.1 % (36.0-47.0); HEMOGLOBIN 11.5 g/dL (12.0-15.5); MEAN CORPUSCULAR HEMOGLOBIN 30.3 pg (27.0-33.4); MEAN CORPUSCULAR HGB CONC 33.7 g/dL (32.0-36.0); MEAN CORPUSCULAR VOLUME 90 fl (80-97); MONOCYTES % (AUTO) 9.4 % (3-13); PLATELET COUNT 351 10^3/uL (150-450); RED CELL DISTRIBUTION WIDTH 15.9 % (11.5-14.0); TOTAL CELLS COUNTED % (AUTO) 100 %; WHITE BLOOD COUNT 13.1 10^3/uL (4.0-10.5)
[2018-06-28 19:53] LABS: ALANINE AMINOTRANSFERASE 28 U/L (9-52); ALBUMIN 3.3 g/dL (3.5-5.0); ALKALINE PHOSPHATASE 77 U/L (38-126); ASPARTATE AMINO TRANSFERASE 29 U/L (14-36); BILIRUBIN,DIRECT 0.3 mg/dL (0.0-0.4); BILIRUBIN,TOTAL 0.5 mg/dL (0.2-1.3); BLOOD UREA NITROGEN 8 mg/dL (7-20); CALCIUM 8.6 mg/dL (8.4-10.2); GLUCOSE 125 mg/dL (75-110); POTASSIUM 3.8 mmol/L (3.6-5.0); TOTAL PROTEIN 6.6 g/dL (6.3-8.2)
[2018-06-28 20:00] LABS: ANION GAP 4 (5-19); CARBON DIOXIDE 29 mmol/L (22-30); CHLORIDE 103 mmol/L (98-107); SODIUM 136.3 mmol/L (137-145)
--- NOTE | 2018-06-28 20:45 | ER Document Report ---
ED Respiratory Problem - General Chief Complaint: Chest Pain Stated Complaint: CHEST PAIN Time Seen by Provider: 06/28/18 18:21 Primary Care Provider: BRITT EDGE PA-C [ACTIVE STAFF] - Follow up as needed Notes: Patient is a 43-year-old female with a history of COPD, smoking, that comes emergency department for chief complaint of cough and shortness of breath for the past 3 days, worsened today with development of fever around 102 F at home. She states she was using her albuterol inhaler with limited results, she wears oxygen at night but not during the day. She denies congestion, nausea, vomiting, abdominal pain. Remaining medical history includes hypertension, tubal ligation, cholecystectomy. She also has persistent vaginal bleeding and has an upcoming hysterectomy scheduled. TRAVEL OUTSIDE OF THE [place] IN LAST 30 DAYS: No - Related Data Allergies/Adverse Reactions: No Known Allergies Allergy (Verified 04/01/18 15:24) Past Medical History - General Information source: Patient - Social History Smoking Status: Current Every Day Smoker Smoking Education Provided: Yes - <3 min Drug Abuse: None Lives with: Family Family History: Arthritis, CAD, CVA, DM, Hyperlipidemia, Hypertension Patient has suicidal ideation: No Patient has homicidal ideation: No - Past Medical History Cardiac Medical History: Reports: Hx Hypertension Pulmonary Medical History: Reports: Hx Asthma, Hx Bronchitis, Hx COPD Endocrine Medical History: Reports: Hx Diabetes Mellitus Type 2 Renal/ Medical History: Reports: Hx Kidney Stones - 2007. Denies: Hx Peritoneal Dialysis Musculoskeletal Medical History: Reports Hx Musculoskeletal Deformity, Reports Hx Musculoskeletal Trauma Skin Medical History: Reports Hx Cellulitis, Reports Hx MRSA Psychiatric Medical History: Reports: Hx Anxiety Infectious Medical History: Reports: Hx MRSA Past Surgical History: Reports: Hx Adenoidectomy, Hx Section, Hx Cholecystectomy, Hx Dilation and Curettage, Hx Kidney (Renal Surgery) - Lithotripsy 11/26, Hx Tonsillectomy, Hx Tubal Ligation, Hx Urinary Tract Surgery - Bladder sling - Immunizations Immunizations up to date: Yes Hx Diphtheria, Pertussis, Tetanus Vaccination: Yes - 2007 Review of Systems - Review of Systems Constitutional: See HPI EENT: No symptoms reported Cardiovascular: No symptoms reported Respiratory: See HPI Gastrointestinal: No symptoms reported Genitourinary: No symptoms reported Female Genitourinary: No symptoms reported Musculoskeletal: No symptoms reported Skin: No symptoms reported Hematologic/Lymphatic: No symptoms reported Neurological/Psychological: No symptoms reported Physical Exam - Vital signs Vitals: Temp Pulse Resp BP Pulse Ox 99.3 F 110 H 26 H 152/74 H 89 L 06/28/18 17:55 06/28/18 17:55 06/28/18 17:55 06/28/18 17:55 06/28/18 17:55 - Notes Notes: GENERAL: Alert, interacts well. No acute distress. HEAD: Normocephalic, atraumatic. EYES: Pupils equal, round, and reactive to light. Extraocular movements intact. ENT: Oral mucosa moist, tongue midline. Oropharynx unremarkable. Airway patent. Nares patent, no nasal septal hematoma, TM's intact. NECK: Full range of motion. Supple. Trachea midline. LUNGS: Clear to auscultation bilaterally, no wheezes, rales, or rhonchi. No respiratory distress on my evaluation. HEART: Regular rate and rhythm. No murmur ABDOMEN: Soft, non-tender. Non-distended. Bowel sounds present in all 4 quadrants. GENITOURINARY: Deferred EXTREMITIES: Moves all 4 extremities spontaneously. No edema, normal radial and dorsalis pedis pulses bilaterally. No cyanosis. BACK: no cervical, thoracic, lumbar midline tenderness. No saddle anesthesia, normal distal neurovascular exam. NEUROLOGICAL: Alert and oriented x3. Normal speech. [cranial nerves II through XII grossly intact]. PSYCH: Normal affect, normal mood. SKIN: Warm, dry, normal turgor. No rashes or lesions noted. Course - Re-evaluation Re-evalutation: On my evaluation patient is approximately 95% on nasal cannula, speaks in full sentences, clear lungs. She states she has received all 3 duo nebs already, she states she feels much improved. Chest x-ray shows possible mild vascular congestion. Patient does not have rales on exam, no lower extremity swelling, no history of congestive heart failure. Reporting fever at home, she has occasional cough, she had wheezing initially. More consistent with COPD exacerbation and possible pneumonia. Patient does have some leukocytosis. BNP is borderline. Workup otherwise unremarkable. On reevaluation patient is requesting to leave. I discussed her workup and my concerns including hypoxia, questionable x-ray, fever at home, COPD. Patient agrees to ambulate without oxygen, she actually did so very well without significant labored breathing or hypoxia. Patient again requests to leave. I did discuss with Dr. Thorpe. Given Rocephin, doxycycline here, placed on prednisone, doxycycline at home. Discussed follow-up and strict return precautions. Patient states satisfaction and agreement with plan. - Vital Signs Vital signs: Temp Pulse Resp BP Pulse Ox 98.8 F 76 16 139/82 H 97 06/28/18 23:39 06/28/18 23:39 06/28/18 23:39 06/28/18 23:39 06/28/18 23:39 - Laboratory Result Diagrams: 06/28/18 19:00 06/28/18 19:00 Laboratory results interpreted by me: 06/28/18 06/28/18 06/28/18 19:00 19:00 19:00 WBC 13.1 H Hgb 11.5 L Hct 34.1 L RDW 15.9 H Absolute Neutrophils 9.4 H Sodium 136.3 L Anion Gap 4 L Glucose 125 H NT-Pro-B Natriuret Pep 388 H Albumin 3.3 L Discharge - Discharge Clinical Impression: Wheezing, Cough Fever Qualifiers: Fever type: unspecified Qualified Code(s): R50.9 - Fever, unspecified Condition: Stable Disposition: HOME, SELF-CARE Additional Instructions: Your evaluation is concerning for pneumonia and COPD exacerbation. Take the prednisone steroids as prescribed, take the doxycycline antibiotics as prescribed, continue your albuterol treatments. Follow-up closely with primary care. Return immediately if you worsen in any way including Difficulty breathing, spiking fevers, or any other concerning or worsening symptoms Prescriptions: Doxycycline Hyclate 100 mg PO BID #14 capsule Prednisone [Deltasone 20 mg Tablet] 3 tab PO DAILY 5 Days #15 tablet Forms: Smoking Cessation Education Referrals: BRITT EDGE PA-C [ACTIVE STAFF] - Follow up as needed
[2018-06-28 21:23] LABS: VENOUS BLOOD BASE EXCESS 1.8 mmol/L; VENOUS BLOOD HCO3 26.5 mmol/L (20-32); VENOUS BLOOD PCO2 42.1 mmHg (35-63); VENOUS BLOOD PH 7.42 (7.30-7.42)
[2018-06-28] MEDS ORDERED: CEFTRIAXONE 1 GM/D5W RTU 1 GM/50 ML RTUPB IV ONE (22:27)
[2018-06-28] MEDS ORDERED: DOXYCYCLINE HYCLATE 100 MG TABLET PO ONE (23:05)
[2018-06-28 23:40] VITALS: BP 139/82
--- NOTE | 2018-06-29 10:56 | EKG REPORT ---
SEVERITY:- BORDERLINE ECG - SINUS TACHYCARDIA PROBABLE LEFT ATRIAL ABNORMALITY : Confirmed by: Rg Benites 29-Jun-2018 10:55:30
== END 2018-06-28 23:40 | disposition home or self-care (01) ==
LOC: ER 17:52
DX: J44.9 Chronic obstructive pulmonary disease, unspecified (principal); Z99.81 Dependence on supplemental oxygen; R05 Cough; R50.9 Fever, unspecified; R06.02 Shortness of breath; E11.9 Type 2 diabetes mellitus without complications; D72.829 Elevated white blood cell count, unspecified; I10 Essential (primary) hypertension; F17.200 Nicotine dependence, unspecified, uncomplicated
CPT/HCPCS: 93005; 94640; 99284; 96375; 96365; 36415; 87040; 85025; 80053; 84484; 82803; 83880; 71046; 93010; J3490; J2930; J0696; J7620

== ENCOUNTER 2018-09-23 19:52 | Emergency (ER) | payer MEDICAID ==
[2018-09-23] MEDS ORDERED: IPRATROPIUM/ALBUTEROL 0.5-2.5 MG/3 ML AMPUL NEB ONE (20:37)
--- NOTE | 2018-09-23 20:38 | ER Document Report ---
ED Medical Screen (RME) - General Chief Complaint: Breathing Difficulty Stated Complaint: DIFFICULTY BREATHING Time Seen by Provider: 09/23/18 20:33 Primary Care Provider: WHIT PHELPS FNP-C [Primary Care Provider] - Follow up as needed Mode of Arrival: Ambulatory Information source: Patient Notes: Patient presents with complaints of fever up to 102 today difficulty breathing feels like chest tight. She has history of COPD. Reports recent chest x-ray at [facility]. Reports she smoked a half a cigarette today. Also reports she gave herself a DuoNeb at 1300. She has ran out of the prescription. I have greeted and performed a rapid initial assessment of this patient. A comprehensive ED assessment and evaluation of the patient, analysis of test results and completion of the medical decision making process will be conducted by additional ED providers. Dictation of this chart was performed using voice recognition software; therefor e, there may be some unintended grammatical errors. TRAVEL OUTSIDE OF THE [place] IN LAST 30 DAYS: No - Related Data Allergies/Adverse Reactions: No Known Allergies Allergy (Verified 09/20/18 11:39) Past Medical History - Past Medical History Cardiac Medical History: Reports: Hx Hypertension Denies: Hx Coronary Artery Disease, Hx Heart Attack Pulmonary Medical History: Reports: Hx Asthma, Hx Bronchitis, Hx COPD, Hx Pneumonia Neurological Medical History: Denies: Hx Cerebrovascular Accident, Hx Seizures Endocrine Medical History: Reports: Hx Diabetes Mellitus Type 2 Renal/ Medical History: Reports: Hx Kidney Stones - 2007. Denies: Hx Peritoneal Dialysis Musculoskeltal Medical History: Denies Hx Arthritis, Reports Hx Musculoskeletal Deformity, Reports Hx Musculoskeletal Trauma Skin Medical History: Reports Hx Cellulitis, Reports Hx MRSA Psychiatric Medical History: Reports: Hx Anxiety Infectious Medical History: Reports: Hx MRSA Past Surgical History: Reports: Hx Adenoidectomy, Hx Section, Hx Cholecystectomy, Hx Dilation and Curettage, Hx Kidney (Renal Surgery) - Lithotripsy 11/26, Hx Tonsillectomy, Hx Tubal Ligation, Hx Urinary Tract Surgery - Bladder sling - Immunizations Immunizations up to date: Yes Hx Diphtheria, Pertussis, Tetanus Vaccination: Yes - 2007 Physical Exam - Vital signs Vitals: Temp Pulse Resp BP Pulse Ox 99.6 F 95 20 165/91 H 97 09/23/18 20:02 09/23/18 20:02 09/23/18 20:02 09/23/18 20:02 09/23/18 20:02 Course - Vital Signs Vital signs: Temp Pulse Resp BP Pulse Ox 99.6 F 95 20 165/91 H 97 09/23/18 20:02 09/23/18 20:02 09/23/18 20:02 09/23/18 20:02 09/23/18 20:02 Doctor's Discharge - Discharge Referrals: WHIT PHELPS, SW[facility] INSPECTOR-C [Primary Care Provider] - Follow up as needed
[2018-09-23 20:58] LABS: ABSOLUTE BASOPHILS # (AUTO) 0.1 10^3/uL (0.0-0.2); ABSOLUTE EOSINOPHILS # (AUTO) 0.4 10^3/uL (0.0-0.6); ABSOLUTE LYMPHOCYTES (AUTO) 2.6 10^3/uL (0.5-4.7); ABSOLUTE MONOCYTES (AUTO) 0.7 10^3/uL (0.1-1.4); ABSOLUTE NEUT (AUTO) 8.7 10^3/uL (1.7-8.2); BASOPHILS % (AUTO) 0.7 % (0-2); EOSINOPHILS % (AUTO) 3.4 % (0-6); HEMATOCRIT 36.8 % (36.0-47.0); HEMOGLOBIN 12.2 g/dL (12.0-15.5); LYMPHOCYTES % (AUTO) 20.4 % (13-45); MEAN CORPUSCULAR HEMOGLOBIN 28.2 pg (27.0-33.4); MEAN CORPUSCULAR HGB CONC 33.2 g/dL (32.0-36.0); MEAN CORPUSCULAR VOLUME 85 fl (80-97); PLATELET COUNT 338 10^3/uL (150-450); RED BLOOD COUNT 4.32 10^6/uL (3.72-5.28); RED CELL DISTRIBUTION WIDTH 17.1 % (11.5-14.0); SEGMENTED NEUTROPHILS % (AUTO) 69.5 % (42-78); TOTAL CELLS COUNTED % (AUTO) 100 %; WHITE BLOOD COUNT 12.5 10^3/uL (4.0-10.5)
[2018-09-23 21:12] LABS: ALANINE AMINOTRANSFERASE 17 U/L (9-52); ALBUMIN 3.6 g/dL (3.5-5.0); ALKALINE PHOSPHATASE 67 U/L (38-126); ANION GAP 8 (5-19); ASPARTATE AMINO TRANSFERASE 20 U/L (14-36); BILIRUBIN,DIRECT 0.2 mg/dL (0.0-0.4); BILIRUBIN,TOTAL 0.2 mg/dL (0.2-1.3); BLOOD UREA NITROGEN 9 mg/dL (7-20); CALCIUM 8.9 mg/dL (8.4-10.2); CARBON DIOXIDE 32 mmol/L (22-30); CHLORIDE 101 mmol/L (98-107); GLUCOSE 121 mg/dL (75-110); POTASSIUM 3.7 mmol/L (3.6-5.0); SODIUM 141.4 mmol/L (137-145)
[2018-09-23] MEDS ORDERED: OXYCODONE-ACETAMINOPHEN 5-325 MG TABLET PO ONE (21:59)
--- NOTE | 2018-09-23 22:01 | ER Document Report ---
ED Respiratory Problem - General Chief Complaint: Breathing Difficulty Stated Complaint: DIFFICULTY BREATHING Time Seen by Provider: 09/23/18 20:33 Primary Care Provider: WHIT PHELPS FNP-C [Primary Care Provider] - Follow up in 1 week Mode of Arrival: Ambulatory Notes: Patient is a 43-year-old female that comes to the emergency department for chief complaint of shortness of breath, wheezing, cough. She states that she has had ongoing respiratory problems and persistent coughing, states that within the past day she had a fever of 102 F. She does smoke, she has a history of COPD, she ran out of albuterol nebulizer and inhalers this weekend as well. The only other medical history she reports is chronic vaginal bleeding that she has been placed on Provera for and has a scheduled hysterectomy which was postponed after an abnormal chest x-ray performed on . TRAVEL OUTSIDE OF THE [place] IN LAST 30 DAYS: No - Related Data Allergies/Adverse Reactions: No Known Allergies Allergy (Verified 09/20/18 11:39) Past Medical History - General Information source: Patient - Social History Smoking Status: Current Some Day Smoker Smoking Education Provided: Yes - <3 min Frequency of alcohol use: None Drug Abuse: None Lives with: Family Family History: Arthritis, CAD, CVA, DM, Hyperlipidemia, Hypertension Patient has suicidal ideation: No Patient has homicidal ideation: No - Past Medical History Cardiac Medical History: Reports: Hx Hypertension Denies: Hx Coronary Artery Disease, Hx Heart Attack Pulmonary Medical History: Reports: Hx Asthma, Hx Bronchitis, Hx COPD, Hx Pneumonia Neurological Medical History: Denies: Hx Cerebrovascular Accident, Hx Seizures Endocrine Medical History: Reports: Hx Diabetes Mellitus Type 2 Renal/ Medical History: Reports: Hx Kidney Stones - 2007. Denies: Hx Peritoneal Dialysis Musculoskeletal Medical History: Denies Hx Arthritis, Reports Hx Musculoskeletal Deformity, Reports Hx Musculoskeletal Trauma Skin Medical History: Reports Hx Cellulitis, Reports Hx MRSA Psychiatric Medical History: Reports: Hx Anxiety Infectious Medical History: Reports: Hx MRSA Past Surgical History: Reports: Hx Adenoidectomy, Hx Section, Hx Cholecystectomy, Hx Dilation and Curettage, Hx Kidney (Renal Surgery) - Lithotripsy 11/26, Hx Tonsillectomy, Hx Tubal Ligation, Hx Urinary Tract Surgery - Bladder sling - Immunizations Immunizations up to date: Yes Hx Diphtheria, Pertussis, Tetanus Vaccination: Yes - 2007 Review of Systems - Review of Systems Constitutional: See HPI EENT: No symptoms reported Cardiovascular: See HPI Respiratory: See HPI Gastrointestinal: No symptoms reported Genitourinary: No symptoms reported Female Genitourinary: No symptoms reported Musculoskeletal: No symptoms reported Skin: No symptoms reported Hematologic/Lymphatic: No symptoms reported Neurological/Psychological: No symptoms reported Physical Exam - Vital signs Vitals: Temp Pulse Resp BP Pulse Ox 99.6 F 95 20 165/91 H 97 09/23/18 20:02 09/23/18 20:02 09/23/18 20:02 09/23/18 20:02 09/23/18 20:02 - Notes Notes: GENERAL: Alert, interacts well. HEAD: Normocephalic, atraumatic. EYES: Pupils equal, round, and reactive to light. Extraocular movements intact. ENT: Oral mucosa moist, tongue midline. Oropharynx unremarkable. Airway patent. Nares patent, no nasal septal hematoma, TM's intact. NECK: Full range of motion. Supple. Trachea midline. LUNGS: Diffuse coarse breath sounds scattered throughout, no overt wheezes, rales, or rhonchi. Occasional coughing episodes. No respiratory distress. HEART: Regular rate and rhythm. No murmur ABDOMEN: Soft, non-tender. Non-distended. Bowel sounds present in all 4 quadrants. GENITOURINARY: Deferred EXTREMITIES: Moves all 4 extremities spontaneously. No edema, normal radial and dorsalis pedis pulses bilaterally. No cyanosis. BACK: no cervical, thoracic, lumbar midline tenderness. No saddle anesthesia, normal distal neurovascular exam. Moves all extremities in full range of motion. NEUROLOGICAL: Alert and oriented x3. Normal speech. Cranial nerves II through XII grossly intact. PSYCH: Normal affect, normal mood. SKIN: Warm, dry, normal turgor. No rashes or lesions noted. Course - Re-evaluation Re-evalutation: Patient has clear lungs, occasional cough, reported fever at home earlier, states she has had ongoing symptoms for some time including shortness of breath, fevers, wheezing, cough. She is on hormone therapy and smokes. Chest x-ray again shows possible pulmonary vascular congestion versus pneumonia. Mild leukocytosis. Venous blood gas unremarkable. BNP is mildly elevated but patient has no rales, no lower extremity swelling. I was able to lay her flat without her having shortness of breath. She is able to ambulate. She is not hypoxic. I discussed work-up with patient. She expresses frustration because of recent similar x-ray, ongoing symptoms. Discussed different possibilities including pneumonia. Decision was made to proceed with CTA to rule out pulmonary embolism as a cause of her symptoms and to help establish diagnosis better. CTA does show bilateral pneumonia/pneumonitis. With patient's cough and fever I do suspect this is the case. No blood clot noted. Patient states she completed a doxycycline course within the past weeks. As result she will be placed on L evaquin and prednisone instead, provided with albuterol, she states she has close follow-up. She also has oxygen at home as needed but she is not requiring oxygen at this time. She expresses gratefulness for work-up, states she will return if she worsens in any way. Stable at time of discharge. - Vital Signs Vital signs: Temp Pulse Resp BP Pulse Ox 99 F 86 20 130/76 H 96 09/24/18 03:00 09/24/18 03:00 09/24/18 03:00 09/24/18 03:00 09/24/18 03:00 - Laboratory Result Diagrams: 09/23/18 20:42 09/23/18 20:42 Laboratory results interpreted by me: 09/23/18 09/23/18 09/23/18 20:42 20:42 22:45 WBC 12.5 H RDW 17.1 H Absolute Neutrophils 8.7 H VBG pH Carbon Dioxide 32 H Glucose 121 H NT-Pro-B Natriuret Pep 769 H 09/24/18 00:36 WBC RDW Absolute Neutrophils VBG pH 7.48 H Carbon Dioxide Glucose NT-Pro-B Natriuret Pep - EKG Interpretation by Me Additional EKG results interpreted by me: 09/23/18 22:56 EKG shows sinus rhythm at a rate of 83, no T wave inversions or ST segment changes in consecutive leads. Borderline left axis deviation per anterior leads. QTc of 470, IN interval of 140. Discharge - Discharge Clinical Impression: Cough Pneumonia Qualifiers: Pneumonia type: due to unspecified organism Laterality: bilateral Lung location: unspecified part of lung Qualified Code(s): J18.9 - Pneumonia, unspecified organism Condition: Stable Disposition: HOME, SELF-CARE Additional Instructions: Your work-up shows that you do have pneumonia on both sides. Take both the antibiotic and the prednisone, use the albuterol nebulizer, follow-up closely with your primary care provider. Rest and avoid any lifting or significant physical exertions because of your medications. Stop smoking. Return if you worsen including spiking fevers, increased difficulty breathing, passing out, or any other concerning or worsening symptoms. Prescriptions: Albuterol Sulfate [Proventil 0.5% Neb 2.5 mg/0.5 ml Vial.neb] 2.5 mg NEB Q4HP PRN #30 vial.neb PRN Reason: Albuterol Sulfate [Proair HFA Inhalation Aerosol 8.5 gm MDI] 2 puff IH Q4H PRN #1 mdi PRN Reason: Levofloxacin [Levaquin 750 mg Tablet] 750 mg PO DAILY #5 tablet Prednisone [Deltasone 20 mg Tablet] 3 tab PO DAILY 5 Days #15 tablet Referrals: WHIT PHELPS FNP-C [Primary Care Provider] - Follow up in 1 week
[2018-09-23] MEDS ORDERED: LIDOCAINE 1% INJ-PF (10 MG/ML) 30 ML SDV NEB ONE (22:10)
--- NOTE | 2018-09-23 22:45 | RADIOLOGY REPORT (SQ) ---
EXAM DESCRIPTION: XR CHEST 2 VIEWS COMPLETED DATE/TME: 09/23/2018 21:57 CLINICAL HISTORY: 43 years, Female, fever, cough, shortness of breath COMPARISON: 09/20/2018. NUMBER OF VIEWS: 2 TECHNIQUE: Two-view, PA and lateral projections of the chest were obtained. LIMITATIONS: None. FINDINGS: Unremarkable cardiac and mediastinal silhouette. Heart size is normal. Overall interval improvement of bilateral patchy airspace opacification since the previous examination. Lungs are grossly clear with perhaps minimal residual RIGHT lower lobe opacity, without new focal opacity, pneumothorax or pleural effusions. The visualized bones are within normal limits. IMPRESSION: Interval improvement of bilateral airspace opacification. copyright 2010 [employer]- All Rights Reserved
[2018-09-23 23:45] LABS: NT PRO BNP 769 pg/mL (<125)
[2018-09-23 23:46] LABS: TROPONIN I < 0.012 ng/mL
[2018-09-24 00:49] LABS: VENOUS BLOOD BASE EXCESS 4.5 mmol/L; VENOUS BLOOD HCO3 28.3 mmol/L (20-32); VENOUS BLOOD PCO2 39.2 mmHg (35-63); VENOUS BLOOD PH 7.48 (7.30-7.42)
--- NOTE | 2018-09-24 01:46 | RADIOLOGY REPORT (SQ) ---
EXAM DESCRIPTION: CT CHEST ANGIOGRAPHY WITHOUT THEN WITH IV CONTRAST COMPLETED DATE/TME: 09/24/2018 00:25 CLINICAL HISTORY: 43 years, Female, shortness of breath, hormone use, abnormal CXR COMPARISON: 04/12/2015 TECHNIQUE: Axial CT images of the chest were obtained after the administration of IV contrast. MPR and MIP reconstructions were performed. DLP 617. Images stored on PACS. All CT scanners at this facility use dose modulation, iterative reconstruction, and/or weight based dosing when appropriate to reduce radiation dose to as low as reasonably achievable (ALARA). [facility]: Dose Right [facility]: CareDose [facility]: Dose Right [facility]: Teradose 4D [facility]: [employer] LIMITATIONS: None. FINDINGS: No pulmonary embolism is detected. The central airways are patent. The thyroid gland is normal. A bovine arch is noted. No evidence of an aortic aneurysm or dissection. Mediastinal lymph nodes measure up to 1.1 cm in size. There are scattered groundglass opacities. There is no pneumothorax or pleural effusion. The bones are unremarkable. There are changes of a cholecystectomy. The visualized portions of the upper abdomen appear grossly unremarkable. IMPRESSION: No CT evidence of acute pulmonary embolism. Diffuse and scattered groundglass opacities, which may be due to a pneumonia or pneumonitis. Mediastinal lymphadenopathy, likely reactive. TECHNICAL DOCUMENTATION: Quality ID # [id number]: Final reports with documentation of one or more dose reduction techniques (e.g., Automated exposure control, adjustment of the mA and/or kV according to patient size, use of iterative reconstruction technique) copyright 2011 [employer]- All Rights Reserved
[2018-09-24] MEDS ORDERED: CEFTRIAXONE 1 GM/D5W RTU 1 GM/50 ML RTUPB IV ONE (02:04)
[2018-09-24] MEDS ORDERED: METHYLPREDNISOLONE INJ 125 MG/2 ML SDV IV ONE (02:04)
[2018-09-24] MEDS ORDERED: ALBUTEROL SULFATE HFA (90 MCG/PUFF) 8 GM MDI (1 MDI/ER DISP) IH ONE (02:53)
[2018-09-24 06:58] VITALS: BP 130/76
--- NOTE | 2018-09-24 09:42 | EKG REPORT ---
SEVERITY:- OTHERWISE NORMAL ECG - SINUS RHYTHM BORDERLINE LEFT AXIS DEVIATION : Confirmed by: Rg Benites 24-Sep-2018 09:41:43
== END 2018-09-24 03:09 | disposition home or self-care (01) ==
LOC: ER 19:52
DX: J18.9 Pneumonia, unspecified organism (principal); R05 Cough; R06.02 Shortness of breath; R06.2 Wheezing; F17.200 Nicotine dependence, unspecified, uncomplicated; I10 Essential (primary) hypertension; E11.9 Type 2 diabetes mellitus without complications; Z87.442 Personal history of urinary calculi; Z90.49 Acquired absence of other specified parts of digestive tract; Z86.14 Personal history of Methicillin resistant Staphylococcus aureus infection
CPT/HCPCS: 93005; 94640; 99285; 96375; 96365; 36415; 87040; 85025; 80053; 84484; 82803; 83880; 71046; 71275; 93010; J3490 ×2; J2930; J0696; J7620

== ENCOUNTER 2018-09-26 23:54 | Emergency (ER) | payer MEDICAID ==
[2018-09-27] MEDS ORDERED: FUROSEMIDE INJ/PF 40 MG/4 ML SDV IV ONE (03:38)
--- NOTE | 2018-09-27 03:53 | RADIOLOGY REPORT (SQ) ---
EXAM DESCRIPTION: XR CHEST 2 VIEWS COMPLETED DATE/TME: 09/27/2018 03:13 CLINICAL HISTORY: 43 years, Female, cough, recent dyspnea Comparison: None FINDINGS: No focal lung consolidation. No pleural effusion. No pneumothorax. Cardiac and mediastinal silhouette is unremarkable. No acute osseous abnormality. Soft tissues are unremarkable. IMPRESSION: No acute findings. No focal lung consolidation.
[2018-09-27 04:17] LABS: ABSOLUTE BASOPHILS # (AUTO) 0.1 10^3/uL (0.0-0.2); ABSOLUTE LYMPHOCYTES (AUTO) 2.3 10^3/uL (0.5-4.7); ABSOLUTE NEUT (AUTO) 13.9 10^3/uL (1.7-8.2); BASOPHILS % (AUTO) 0.4 % (0-2); HEMATOCRIT 39.6 % (36.0-47.0); HEMOGLOBIN 12.8 g/dL (12.0-15.5); LYMPHOCYTES % (AUTO) 13.1 % (13-45); MEAN CORPUSCULAR HEMOGLOBIN 27.7 pg (27.0-33.4); MEAN CORPUSCULAR HGB CONC 32.2 g/dL (32.0-36.0); MEAN CORPUSCULAR VOLUME 86 fl (80-97); MONOCYTES % (AUTO) 5.6 % (3-13); PLATELET COUNT 405 10^3/uL (150-450); RED BLOOD COUNT 4.61 10^6/uL (3.72-5.28); RED CELL DISTRIBUTION WIDTH 16.8 % (11.5-14.0); SEGMENTED NEUTROPHILS % (AUTO) 80.9 % (42-78); TOTAL CELLS COUNTED % (AUTO) 100 %; WHITE BLOOD COUNT 17.2 10^3/uL (4.0-10.5)
[2018-09-27 05:07] LABS: ALANINE AMINOTRANSFERASE 32 U/L (9-52); ALBUMIN 4.4 g/dL (3.5-5.0); ALKALINE PHOSPHATASE 71 U/L (38-126); ANION GAP 10 (5-19); ASPARTATE AMINO TRANSFERASE 28 U/L (14-36); BILIRUBIN,DIRECT 0.2 mg/dL (0.0-0.4); BILIRUBIN,TOTAL 0.3 mg/dL (0.2-1.3); BLOOD UREA NITROGEN 25 mg/dL (7-20); CALCIUM 9.6 mg/dL (8.4-10.2); CARBON DIOXIDE 27 mmol/L (22-30); CHLORIDE 100 mmol/L (98-107); GLUCOSE 190 mg/dL (75-110); POTASSIUM 4.6 mmol/L (3.6-5.0); SODIUM 136.8 mmol/L (137-145); TOTAL PROTEIN 7.9 g/dL (6.3-8.2)
[2018-09-27 05:16] LABS: NT PRO BNP 253 pg/mL (<125)
[2018-09-27 05:17] LABS: TROPONIN I < 0.012 ng/mL
[2018-09-27] MEDS ORDERED: HYDROCODONE/ACETAMINOPHEN 5-325 MG (6 TAB/ER DISP) PO PRN (06:31)
--- NOTE | 2018-09-27 06:32 | ER Document Report ---
ED General - General Chief Complaint: Productive Cough Stated Complaint: COUGH Time Seen by Provider: 09/27/18 02:52 Primary Care Provider: WHIT PHELPS FNP-C [Primary Care Provider] - Follow up as needed TRAVEL OUTSIDE OF THE [place] IN LAST 30 DAYS: No - HPI Notes: Patient is a 43-year-old white female smoker with history of CHF, sleep apnea, and COPD presents with report of cough and congestion that has not improved despite doxycycline and now 3 days of Levaquin and prednisone. The patient previously had a fever of 102, but since starting the Levaquin the fe vers have subsided. She reports no chest pain at rest or with exertion, only describing mild soreness to the rib cage with coughing. The cough has become less productive. The patient does report some orthopnea but denies any change in her chronic mild lower extremity edema. No abdominal pain, constipation, diarrhea, pharyngitis, earache. - Related Data Allergies/Adverse Reactions: No Known Allergies Allergy (Verified 09/27/18 00:09) Past Medical History - General Information source: Patient - Social History Smoking Status: Current Every Day Smoker Frequency of alcohol use: None Drug Abuse: None Family History: Arthritis, CAD, CVA, DM, Hyperlipidemia, Hypertension Patient has suicidal ideation: No Patient has homicidal ideation: No - Past Medical History Cardiac Medical History: Reports: Hx Hypertension Denies: Hx Coronary Artery Disease, Hx Heart Attack Pulmonary Medical History: Reports: Hx Asthma, Hx Bronchitis, Hx COPD, Hx Pneumonia Neurological Medical History: Denies: Hx Cerebrovascular Accident, Hx Seizures Endocrine Medical History: Reports: Hx Diabetes Mellitus Type 2 Renal/ Medical History: Reports: Hx Kidney Stones - 2007. Denies: Hx Peritoneal Dialysis Musculoskeletal Medical History: Denies Hx Arthritis, Reports Hx Musculoskeletal Deformity, Reports Hx Musculoskeletal Trauma Skin Medical History: Reports Hx Cellulitis, Reports Hx MRSA Psychiatric Medical History: Reports: Hx Anxiety Infectious Medical History: Reports: Hx MRSA Past Surgical History: Reports: Hx Adenoidectomy, Hx Section, Hx Cholecystectomy, Hx Dilation and Curettage, Hx Kidney (Renal Surgery) - Lithotripsy 11/26, Hx Tonsillectomy, Hx Tubal Ligation, Hx Urinary Tract Surgery - Bladder sling - Immunizations Immunizations up to date: Yes Hx Diphtheria, Pertussis, Tetanus Vaccination: Yes - 2007 Review of Systems - Review of Systems -: Yes All other systems reviewed and negative Physical Exam - Vital signs Vitals: Temp Pulse Resp BP Pulse Ox 98.4 F 94 20 186/105 H 95 09/27/18 00:25 09/27/18 00:25 09/27/18 00:25 09/27/18 00:25 09/27/18 00:25 - Notes Notes: PHYSICAL EXAMINATION: GENERAL: Well-appearing, well-nourished and in no acute distress. HEAD: Atraumatic, normocephalic. EYES: Pupils equal round and reactive to light, extraocular movements intact, conjunctiva are normal. ENT: Nares patent, oropharynx clear without exudates. Moist mucous membranes. NECK: Normal range of motion, supple without lymphadenopathy LUNGS: Breath sounds coarse to auscultation bilaterally and equal. No obvious wheezes rales or rhonchi. HEART: Regular rate and rhythm without murmurs ABDOMEN: Soft, nontender, nondistended abdomen. No guarding, no rebound. No masses appreciated. Female : deferred Musculoskeletal: Normal range of motion. No cyanosis. 1+ bilateral lower extremity edema. Negative Homans. No palpable cord. NEUROLOGICAL: Cranial nerves grossly intact. Normal speech, normal gait. Normal sensory, motor exams PSYCH: Normal mood, normal affect. SKIN: Warm, Dry, normal turgor, no rashes or lesions noted. Course - Re-evaluation Re-evalutation: 09/27/18 06:51 Old records were reviewed on the patient. The patient had CT scan and chest x- ray raising a question of pulmonary vascular congestion versus atypical pneumonia pattern from 4 days ago. A repeat chest x-ray today showed some improvement. It is notable that the patient should be on CPAP, but is noncompliant. I question whether or not she would benefit from BiPAP instead. The BNP level was over 700 when checked 4 days ago. This would equate for some degree of CHF. Today's BNP is somewhat improved. Patient has mild hyperglycemia, most likely related to recent steroids. There is no evidence for acute SD or suggestion for pulmonary embolus. There is no significant wheezing currently. No hypoxia. I do question a mild underlying CHF and patient did improve after 40 mg of Lasix. This may also help to address her slightly elevated blood pressure. No hypoxia. Patient was advised to switch to BiPAP and she may need an echocardiogram and follow-up and will be started on low-dose Lasix to supplement the lisinopril 20 mg daily that she is already taking. - Vital Signs Vital signs: Temp Pulse Resp BP Pulse Ox 97.5 F 84 18 179/103 H 99 09/27/18 06:45 09/27/18 06:45 09/27/18 06:45 09/27/18 06:45 09/27/18 06:45 - Laboratory Result Diagrams: 09/27/18 04:00 09/27/18 04:30 Laboratory results interpreted by me: 09/27/18 09/27/18 09/27/18 04:00 04:30 04:30 WBC 17.2 H RDW 16.8 H Seg Neutrophils % 80.9 H Absolute Neutrophils 13.9 H Sodium 136.8 L BUN 25 H Glucose 190 H NT-Pro-B Natriuret Pep 253 H - EKG Interpretation by Me EKG shows normal: Sinus rhythm Additional EKG results interpreted by me: 09/27/18 06:26 EKG is interpreted by me showed normal sinus rhythm heart rate of 77. There is no gross evidence for acute SD or ischemia noted. There is no significant changes compared to previous EKG reviewed from 09/23/2018. Discharge - Discharge Clinical Impression: Sleep apnea in adult Hypertension Qualifiers: Hypertension type: essential hypertension Qualified Code(s): I10 - Essential (primary) hypertension CHF (congestive heart failure) Qualifiers: Heart failure type: unspecified Heart failure chronicity: acute Qualified Code(s): I50.9 - Heart failure, unspecified Condition: Stable Disposition: HOME, SELF-CARE Instructions: Congestive Heart Failure ([facility]) Additional Instructions: Talk with your flume tender about starting on BiPAP instead of CPAP, due to your history of COPD. You need a follow-up echocardiogram of the heart. Return to the emergency department in case of chest pain, difficulty breathing or fever. Prescriptions: Hydrocodone/Acetaminophen [Reading 5-325 Tablet] 1 each PO Q4HP PRN #20 tablet PRN Reason: Furosemide [Lasix 20 mg Tablet] 20 mg PO QAM #30 tablet Referrals: WHIT PHELPS FNP-C [Primary Care Provider] - Follow up as needed
[2018-09-27 06:46] VITALS: BP 179/103
--- NOTE | 2018-09-27 10:31 | EKG REPORT ---
SEVERITY:- BORDERLINE ECG - SINUS RHYTHM PROBABLE LEFT ATRIAL ABNORMALITY BORDERLINE LEFT AXIS DEVIATION : Confirmed by: Tiffany Arteaga MD 27-Sep-2018 10:30:11
== END 2018-09-27 06:55 | disposition home or self-care (01) ==
LOC: ER 23:54
DX: G47.30 Sleep apnea, unspecified (principal); I11.0 Hypertensive heart disease with heart failure; I50.9 Heart failure, unspecified; R05 Cough; R09.81 Nasal congestion; R50.9 Fever, unspecified; R07.81 Pleurodynia; R06.01 Orthopnea; F17.200 Nicotine dependence, unspecified, uncomplicated; E11.9 Type 2 diabetes mellitus without complications; J44.9 Chronic obstructive pulmonary disease, unspecified
CPT/HCPCS: 93005; 99284; 96374; 36415; 83735; 85025; 80053; 84484; 83880; 71046; 93010; J1940

== ENCOUNTER 2018-10-01 15:49 | Emergency (ER) | payer MEDICAID ==
[2018-10-01] MEDS ORDERED: ASPIRIN 81 MG TABLET, CHEWABLE PO ONE (16:36)
--- NOTE | 2018-10-01 16:53 | ER Document Report ---
ED Medical Screen (RME) - General Chief Complaint: Chest Pain Stated Complaint: CHEST PAIN Time Seen by Provider: 10/01/18 16:36 Primary Care Provider: WHIT PHELPS FNP-C [Primary Care Provider] - Follow up as needed Notes: Patient is a 43-year-old female presents to the emergency department for continued respiratory distress. Patient states she feels a heaviness in the center of her chest. States she was recently at this facility and started on Lasix. States she tried to get into her primary care provider but does not have an appointment until the of this month. Patient states initially after starting Lasix she did feel better but over the last couple of days just "cannot get comfortable." GENERAL: Alert, interacts well. No acute distress. LUNGS: Clear to auscultation bilaterally apices, diminished bilateral bases. No respiratory distress. I have greeted and performed a rapid initial assessment of this patient. A comprehensive ED assessment and evaluation of the patient, analysis of test results and completion of the medical decision making process will be conducted by additional ED providers. I have specifically instructed the patient or family members with the patient to immediately return to any nursing staff should anything change in the patient's condition or with their chief complaint. This medical record was dictated with voice recognizing software. There may be grammatical, syntax errors that are unintended. TRAVEL OUTSIDE OF THE [place] IN LAST 30 DAYS: No - Related Data Allergies/Adverse Reactions: No Known Allergies Allergy (Verified 10/01/18 15:52) Past Medical History - Past Medical History Cardiac Medical History: Reports: Hx Hypertension Denies: Hx Coronary Artery Disease, Hx Heart Attack Pulmonary Medical History: Reports: Hx Asthma, Hx Bronchitis, Hx COPD, Hx Pneumonia Neurological Medical History: Denies: Hx Cerebrovascular Accident, Hx Seizures Endocrine Medical History: Reports: Hx Diabetes Mellitus Type 2 Renal/ Medical History: Reports: Hx Kidney Stones - 2007. Denies: Hx Peritoneal Dialysis Musculoskeltal Medical History: Denies Hx Arthritis, Reports Hx Musculoskeletal Deformity, Reports Hx Musculoskeletal Trauma Skin Medical History: Reports Hx Cellulitis, Reports Hx MRSA Psychiatric Medical History: Reports: Hx Anxiety Infectious Medical History: Reports: Hx MRSA Past Surgical History: Reports: Hx Adenoidectomy, Hx Section, Hx Cholecystectomy, Hx Dilation and Curettage, Hx Kidney (Renal Surgery) - Lithotripsy 11/26, Hx Tonsillectomy, Hx Tubal Ligation, Hx Urinary Tract Surgery - Bladder sling - Immunizations Immunizations up to date: Yes Hx Diphtheria, Pertussis, Tetanus Vaccination: Yes - 2007 Physical Exam - Vital signs Vitals: Temp Pulse Resp BP Pulse Ox 98.3 F 106 H 20 140/95 H 96 10/01/18 15:52 10/01/18 15:52 10/01/18 15:52 10/01/18 15:52 10/01/18 15:52 Course - Vital Signs Vital signs: Temp Pulse Resp BP Pulse Ox 98.3 F 106 H 20 140/95 H 96 10/01/18 15:52 10/01/18 15:52 10/01/18 15:52 10/01/18 15:52 10/01/18 15:52 Doctor's Discharge - Discharge Referrals: WHIT PHELPS FNP-C [Primary Care Provider] - Follow up as needed
[2018-10-01 17:31] LABS: ABSOLUTE BASOPHILS # (AUTO) 0.1 10^3/uL (0.0-0.2); ABSOLUTE EOSINOPHILS # (AUTO) 0.7 10^3/uL (0.0-0.6); ABSOLUTE LYMPHOCYTES (AUTO) 3.8 10^3/uL (0.5-4.7); ABSOLUTE MONOCYTES (AUTO) 0.9 10^3/uL (0.1-1.4); ABSOLUTE NEUT (AUTO) 9.4 10^3/uL (1.7-8.2); BASOPHILS % (AUTO) 0.9 % (0-2); EOSINOPHILS % (AUTO) 4.8 % (0-6); HEMATOCRIT 47.5 % (36.0-47.0); HEMOGLOBIN 15.4 g/dL (12.0-15.5); LYMPHOCYTES % (AUTO) 25.2 % (13-45); MEAN CORPUSCULAR HEMOGLOBIN 27.6 pg (27.0-33.4); MEAN CORPUSCULAR HGB CONC 32.5 g/dL (32.0-36.0); MEAN CORPUSCULAR VOLUME 85 fl (80-97); MONOCYTES % (AUTO) 6.1 % (3-13); PLATELET COUNT 513 10^3/uL (150-450); RED BLOOD COUNT 5.59 10^6/uL (3.72-5.28); TOTAL CELLS COUNTED % (AUTO) 100 %; WHITE BLOOD COUNT 14.9 10^3/uL (4.0-10.5)
[2018-10-01 17:44] LABS: ALANINE AMINOTRANSFERASE 35 U/L (9-52); ALBUMIN 4.2 g/dL (3.5-5.0); ALKALINE PHOSPHATASE 93 U/L (38-126); ANION GAP 12 (5-19); ASPARTATE AMINO TRANSFERASE 29 U/L (14-36); BILIRUBIN,DIRECT 0.3 mg/dL (0.0-0.4); BILIRUBIN,TOTAL 0.7 mg/dL (0.2-1.3); BLOOD UREA NITROGEN 24 mg/dL (7-20); CALCIUM 9.7 mg/dL (8.4-10.2); CARBON DIOXIDE 26 mmol/L (22-30); CHLORIDE 98 mmol/L (98-107); CREATINE KINASE 69 U/L (30-135); GLUCOSE 126 mg/dL (75-110); POTASSIUM 4.9 mmol/L (3.6-5.0); SODIUM 136.3 mmol/L (137-145); TOTAL PROTEIN 7.6 g/dL (6.3-8.2)
[2018-10-01 17:56] LABS: CREATINE KINASE MB 1.34 ng/mL (<4.55)
--- NOTE | 2018-10-01 17:58 | RADIOLOGY REPORT (SQ) ---
EXAM DESCRIPTION: CHEST SINGLE VIEW COMPLETED DATE/TIME: 10/01/2018 5:43 pm REASON FOR STUDY: SOB COMPARISON: Chest x-ray 09/27/2018. EXAM PARAMETERS: NUMBER OF VIEWS: One view. TECHNIQUE: Single frontal radiographic view of the chest acquired. RADIATION DOSE: NA LIMITATIONS: None. FINDINGS: LUNGS AND PLEURA: No consolidation, pneumothorax or pleural effusion. MEDIASTINUM AND HILAR STRUCTURES: No masses. Contour normal. HEART AND VASCULAR STRUCTURES: Heart normal in size. Normal vasculature. BONES: No acute findings. HARDWARE: None in the chest. IMPRESSION: NO ACUTE RADIOGRAPHIC FINDING IN THE CHEST. TECHNICAL DOCUMENTATION: JOB ID: [id number] 2010 [employer]- All Rights Reserved Reading location - IP/workstation name: [email or web address]
[2018-10-01 18:06] LABS: TROPONIN I < 0.012 ng/mL
[2018-10-01] MEDS ORDERED: HYDROCODONE/ACETAMINOPHEN 5-325 MG (6 TAB/ER DISP) PO ONE (18:54)
--- NOTE | 2018-10-01 18:59 | EKG REPORT ---
SEVERITY:- BORDERLINE ECG - SINUS RHYTHM PROBABLE LEFT ATRIAL ABNORMALITY LEFT AXIS DEVIATION : Confirmed by: Tiffany Arteaga MD 01-Oct-2018 18:58:24
--- NOTE | 2018-10-01 19:00 | ER Document Report ---
ED General - General Chief Complaint: Chest Pain Stated Complaint: CHEST PAIN Time Seen by Provider: 10/01/18 16:36 Primary Care Provider: WHIT PHELPS FNP-C [Primary Care Provider] - Follow up as needed TRAVEL OUTSIDE OF THE [place] IN LAST 30 DAYS: No - HPI Notes: Patient is a 43-year-old female that presents to the emergency department for chief complaint of shortness of breath. Patient states she has had ongoing shortness of breath and orthopnea for the last few weeks. She was seen here a few days ago and states she was started on Lasix. She states initially she was urinating frequently but that has decreased. She states that the shortness of breath is unchanged but not improving. She does have a history of congestive heart failure but reports that she is not sure if she however had an echo performed. She denies any new fevers or increased sputum production. Patient did quit smoking after her last visit in the ED. She has been compliant with all other medications. She does describe a "discomfort" in her chest when she is coughing and states it feels the same as previously evaluated. She denies any new chest pain, palpitations, syncope, nausea/vomiting and abdominal pain. Past Medical History: Congestive heart failure Past Surgical History: Reviewed in chart Social History: Quit tobacco last week. Denies drug and alcohol use Family History: Reviewed and noncontributory for presenting illness Allergies: Reviewed, see documented allergy list. REVIEW OF SYSTEMS: CONSTITUTIONAL : No fever No chills No diaphoresis recent illness EENT: No vision changes No congestion No sore throat CARDIOVASCULAR: chest pain No palpitations RESPIRATORY: shortness of breath cough difficulty breathing GASTROINTESTINAL: No abdominal pain No nausea No vomiting No diarrhea GENITOURINARY: No dysuria No hematuria No difficulty urinating MUSCULOSKELETAL: No back pain No leg pain No arm pain SKIN: No rashes No lesions LYMPHATIC: No swollen, enlarged glands. NEUROLOGICAL: No lightheadedness No headache No weakness No paresthesias PSYCHIATRIC: No anxiety No depression PHYSICAL EXAMINATION: Vital signs reviewed, nursing noted reviewed. GENERAL: Well-appearing, obese and in no acute distress. HEAD: Atraumatic, normocephalic. EYES: Eyes appear normal, extraocular movements intact, sclera anicteric, conjunctiva are normal. ENT: nares patent, oropharynx clear without exudates. Moist mucous membranes. NECK: Normal range of motion, supple without lymphadenopathy LUNGS: Breath sounds clear to auscultation bilaterally and equal. Wheezing cleared after coughing. No accessory muscle use or tachypnea HEART: Regular rate and rhythm without murmurs, +2/4 bilateral radial pulse ABDOMEN: Soft, nontender, normoactive bowel sounds. No rebound, guarding, or rigidity. No masses appreciated. EXTREMITIES: Nontender, good range of motion, no pitting or edema. NEUROLOGICAL: No focal neurological deficits. Moves all extremities spontaneously Motor and sensory grossly intact on exam. PSYCH: Normal mood, normal affect. SKIN: Warm, Dry, normal turgor, no rashes or lesions noted on exposed skin - Related Data Allergies/Adverse Reactions: No Known Allergies Allergy (Verified 10/01/18 15:52) Past Medical History - Social History Smoking Status: Unknown if Ever Smoked Family History: Arthritis, CAD, CVA, DM, Hyperlipidemia, Hypertension Patient has suicidal ideation: No Patient has homicidal ideation: No - Past Medical History Cardiac Medical History: Reports: Hx Hypertension Denies: Hx Coronary Artery Disease, Hx Heart Attack Pulmonary Medical History: Reports: Hx Asthma, Hx Bronchitis, Hx COPD, Hx Pneumonia Neurological Medical History: Denies: Hx Cerebrovascular Accident, Hx Seizures Endocrine Medical History: Reports: Hx Diabetes Mellitus Type 2 Renal/ Medical History: Reports: Hx Kidney Stones - 2007. Denies: Hx Peritoneal Dialysis Musculoskeletal Medical History: Denies Hx Arthritis, Reports Hx Musculoskeletal Deformity, Reports Hx Musculoskeletal Trauma Skin Medical History: Reports Hx Cellulitis, Reports Hx MRSA Psychiatric Medical History: Reports: Hx Anxiety Infectious Medical History: Reports: Hx MRSA Past Surgical History: Reports: Hx Adenoidectomy, Hx Section, Hx Cholecystectomy, Hx Dilation and Curettage, Hx Kidney (Renal Surgery) - Lithotripsy 11/26, Hx Tonsillectomy, Hx Tubal Ligation, Hx Urinary Tract Surgery - Bladder sling - Immunizations Immunizations up to date: Yes Hx Diphtheria, Pertussis, Tetanus Vaccination: Yes - 2007 Physical Exam - Vital signs Vitals: Temp Pulse Resp BP Pulse Ox 98.3 F 106 H 20 140/95 H 96 10/01/18 15:52 10/01/18 15:52 10/01/18 15:52 10/01/18 15:52 10/01/18 15:52 Course - Re-evaluation Re-evalutation: 10/01/18 18:57 Vitals reviewed. Nursing notes reviewed. Patient's lab work today is improved compared to her 2 prior over the last week. She has a mild leukocytosis which is likely related to recent steroid use and is improving. Her chest x-ray shows no pulmonary vascular congestion or pneumonia. Patient has no peripheral edema to suggest fluid overload. She was initially wheezing which cleared with coug nabeel and is in no other acute respiratory distress, she is oxygenating well on room air. Her troponin is negative and EKG shows no ischemia. The discomfort in her chest she is describing as an allover ache with coughing that has been unchanged over the last few weeks. I do not clinically suspect ACS given her description of this discomfort and normal cardiac work-up. Patient likely requiring cardiology follow-up and echo however I see no criteria for admission at this time. She was given a dose of [place] for her chest wall pain. Patient will continue to take the Lasix at home as previously prescribed. She will be given referral to Dr. Rodriguez and instructed to follow tomorrow or the next day for further congestive heart failure work-up. Laboratory 10/01/18 10/01/18 10/01/18 17:10 17:10 17:10 WBC 14.9 H RBC 5.59 H Hgb 15.4 Hct 47.5 H MCV 85 MCH 27.6 MCHC 32.5 RDW 17.0 H Plt Count 513 H Seg Neutrophils % 63.0 Lymphocytes % 25.2 Monocytes % 6.1 Eosinophils % 4.8 Basophils % 0.9 Absolute Neutrophils 9.4 H Absolute Lymphocytes 3.8 Absolute Monocytes 0.9 Absolute Eosinophils 0.7 H Absolute Basophils 0.1 Sodium 136.3 L Potassium 4.9 Chloride 98 Carbon Dioxide 26 Anion Gap 12 BUN 24 H Creatinine 1.01 Est GFR ( Amer) > 60 Est GFR (Non-Af Amer) > 60 Glucose 126 H Calcium 9.7 Total Bilirubin 0.7 Direct Bilirubin 0.3 Neonat Total Bilirubin Not Reportable Neonat Direct Bilirubin Not Reportable Neonat Indirect Bili Not Reportable AST 29 ALT 35 Alkaline Phosphatase 93 Creatine Kinase 69 CK-MB (CK-2) 1.34 Troponin I < 0.012 Total Protein 7.6 Albumin 4.2 Chest X-Ray 10/01/18 16:36 IMPRESSION: NO ACUTE RADIOGRAPHIC FINDING IN THE CHEST. - Vital Signs Vital signs: Temp Pulse Resp BP Pulse Ox 98.3 F 106 H 20 140/95 H 96 10/01/18 15:52 10/01/18 15:52 10/01/18 15:52 10/01/18 15:52 10/01/18 15:52 - Laboratory Result Diagrams: 10/01/18 17:10 10/01/18 17:10 Laboratory results interpreted by me: 10/01/18 10/01/18 17:10 17:10 WBC 14.9 H RBC 5.59 H Hct 47.5 H RDW 17.0 H Plt Count 513 H Absolute Neutrophils 9.4 H Absolute Eosinophils 0.7 H Sodium 136.3 L BUN 24 H Glucose 126 H - EKG Interpretation by Me Additional EKG results interpreted by me: 10/01/18 19:01 Interpreted by myself 1557: Normal sinus rhythm, rate 97, normal axis, no ectopy, no STEMI Discharge - Discharge Clinical Impression: Shortness of breath, Cough Condition: Stable Disposition: HOME, SELF-CARE Instructions: Chest Wall Pain ([facility]) Additional Instructions: Please return to the emergency department if you have any worsening, or concern of your symptoms. Please return to the emergency department if you develop chest pain, difficulty breathing, severe abdominal pain, or ongoing vomiting. Please follow-up with your primary care physician in 2-3 days and any other recommended physicians. If prescribed, take all medications as directed. If you have any questions or concerns do not hesitate to return the emergency department for evaluation. Follow with Dr. Rodriguez tomorrow for echo and further congestive heart failure evaluation Referrals: WHIT PHELPS FNP-C [Primary Care Provider] - 10/02/18 COLEEN RODRIGUEZ MD [ACTIVE STAFF] - Follow up tomorrow
[2018-10-01 19:08] VITALS: BP 149/117
== END 2018-10-01 19:09 | disposition home or self-care (01) ==
LOC: ER 15:49
DX: I11.0 Hypertensive heart disease with heart failure (principal); I50.9 Heart failure, unspecified; J44.9 Chronic obstructive pulmonary disease, unspecified; R06.02 Shortness of breath; R06.01 Orthopnea; R05 Cough; R07.89 Other chest pain; D72.829 Elevated white blood cell count, unspecified; E11.9 Type 2 diabetes mellitus without complications; Z87.891 Personal history of nicotine dependence; Z87.01 Personal history of pneumonia (recurrent)
CPT/HCPCS: 36415; 71045; 80053; 82550; 82553; 84484; 85025; 93005; 93010; 99285

== ENCOUNTER 2018-11-16 11:25 | Day surgery (SDC) | payer MEDICAID ==
[2018-11-13 11:01] LABS: HEMATOCRIT 44.1 % (36.0-47.0); HEMOGLOBIN 14.8 g/dL (12.0-15.5); MEAN CORPUSCULAR HGB CONC 33.5 g/dL (32.0-36.0); MEAN CORPUSCULAR VOLUME 87 fl (80-97); PLATELET COUNT 309 10^3/uL (150-450); WHITE BLOOD COUNT 13.7 10^3/uL (4.0-10.5)
[2018-11-13 11:11] LABS: APPEARANCE,URINE CLEAR; BILIRUBIN,URINE NEGATIVE (NEGATIVE); COLOR,URINE YELLOW; GLUCOSE, URINE NEGATIVE (NEGATIVE); KETONES,URINE NEGATIVE (NEGATIVE); LEUKOCYTE ESTERASE,URINE NEGATIVE (NEGATIVE); NITRITE,URINE NEGATIVE (NEGATIVE); PROTEIN,URINE NEGATIVE (NEGATIVE); UROBILINOGEN,URINE NEGATIVE mg/dL (<2.0)
[2018-11-13 11:46] LABS: ALBUMIN 4.5 g/dL (3.5-5.0); ALKALINE PHOSPHATASE 89 U/L (38-126); ANION GAP 12 (5-19); ASPARTATE AMINO TRANSFERASE 29 U/L (14-36); BILIRUBIN,DIRECT 0.2 mg/dL (0.0-0.4); BILIRUBIN,TOTAL 0.4 mg/dL (0.2-1.3); BLOOD UREA NITROGEN 12 mg/dL (7-20); CALCIUM 9.4 mg/dL (8.4-10.2); CARBON DIOXIDE 27 mmol/L (22-30); CHLORIDE 99 mmol/L (98-107); GLUCOSE 114 mg/dL (75-110); POTASSIUM 4.1 mmol/L (3.6-5.0); TOTAL PROTEIN 7.6 g/dL (6.3-8.2)
--- NOTE | 2018-11-13 13:17 | EKG REPORT ---
SEVERITY:- BORDERLINE ECG - SINUS RHYTHM PROBABLE LEFT ATRIAL ABNORMALITY BORDERLINE LEFT AXIS DEVIATION : Confirmed by: Bayron Wang MD 13-Nov-2018 13:16:52
--- NOTE | 2018-11-16 09:12 | Operative Report ---
Operative Report DATE OF SURGERY: 11/16/18 PREOPERATIVE DIAGNOSIS: abnormal uterine bleeding, chronic pelvic pain, pelvic adhesions POSTOPERATIVE DIAGNOSIS: Same OPERATION: Robotic assisted total laparoscopic hysterectomy with bilateral salpingectomy and lysis of adhesions SURGEON: KAY PUENTES 1ST HVAC MECHANICAL ENGINEER: RUTH CHATTERJEE 2ND Eligibility And Occupancy Interviewer: MACRINA AMADOR ANESTHESIA: GA TISSUE REMOVED OR ALTERED: Uterus cervix and bilateral fallopian tube segments COMPLICATIONS: None ESTIMATED BLOOD LOSS: 100 cc INTRAOPERATIVE FINDINGS: 10-week size uterus normal ovaries multiple omental adhesions to the anterior abdominal wall PROCEDURE: Patient was taken to the operating room prepared and draped in normal sterile fashion in dorsolithotomy position. Under sterile conditions a Luke catheter was placed to gravity. Speculum was placed into the vagina and the cervix was grasped on the anterior lip with a single-tooth tenaculum. The cervix was then dilated to accommodate a medium V care uterine manipulator. Manipulate it was placed gloves were changed and attention was turned to the upper portion of the case. A 2-1/2 cm umbilical skin incision was made 11 blade and this was carried through to the underlying layer of fascia with the same 11 blade. It was grasped to Venecia's acted with Eugenio's. New cavity was entered bluntly. A GelPort was placed in a normal fashion the camera port and air seal in the appropriate locations. [place] was then inflated with approximately 2 L of CO2 gas. The camera was then introduced into the peritoneal cavity through the camera port and the patient was placed in steep Trendelenburg. The above findings were not ed. Under direct visualization two 5 mm ports were placed approximately 10 cm on either side of the umbilicus. The robot was then docked with the vessel sealer placed on the patient's left and the monopolar scissors placed placed on the patient's right. I then unscrubbed and set at the robotic console beginning with the left adnexa fallopian tube was transected from the uterus using the vessel sealer and monopolar scissors as needed. The fallopian tube was then removed through the assistance port. The ovarian ligament was then transected using the vessel sealer. The uterine artery was skeletonized using blunt dissection and ligated using the vessel sealer down to the level of the external cervical os. The bladder flap was then begun using monopolar scissors and blunt dissection over the V care cup noted through the mucosa. Attention was then turned to the right adnexa where the fallopian tube was transected in a similar fashion. The utero-ovarian ligament was transected using the vessel sealer. The Uterine artery was then transected using the vessel sealer and skeletonized using blunt dissection. The vessel sealer was again used to completely transect the uterine artery down to the level of the external cervical os. The bladder flap was completed using similar sharp and blunt dissection. Once the bladder was felt to be adequately away from the lower uterine segment, the colpotomy was begun on the anterior aspect of the cervix following the outline of the V care cup mucosa. The cup was followed in a circumferential fashion completely around the cervix estimate was completely freed. The specimen was then removed through the vaginal defect. The instruments were then changed to a Oleksandr needle cattle driver and pro-grasp. AV lock needle was introduced through the assistance port. The lock needle was used to close the vaginal cuff and hemostasis. The needle was then removed through the assistance port. The peritoneal cavity was carefully inspected the ureters were noted to both be peristalsing and there was no signs of hydroureter. The robot was then undocked. The fascia was closed at the umbilical skin incision seen 0 Vicryl 3 skin incisions were closed using 4-0 Vicryl. Sponge lap and needle counts were correct x2 and the patient was taken to recovery in stable condition.
[~2018-11-16 11:25] MED LIST: ACETAMINOPHEN 1,000 MG/100 ML RTUPB IV ONE; CEFAZOLIN 1 GM/D5W RTU 1 GM/50 ML RTUPB IV ONE; CEFAZOLIN 1 GM/D5W RTU 1 GM/50 ML RTUPB IV PRN; DEXAMETHASONE SOD PHOSPHATE INJ 4 MG/1 ML VIAL ONE; DIPHENHYDRAMINE HCL 50 MG/ML VIAL IV PRN; FENTANYL CITRATE INJ/PF 100 MCG/2 ML AMPUL IV PRN; FENTANYL CITRATE INJ/PF 100 MCG/2 ML AMPUL ONE; FENTANYL CITRATE INJ/PF 250 MCG/5 ML AMPULE ONE; GLYCOPYRROLATE 1 MG/5 ML VIAL ONE; KETOROLAC TROMETHAMINE INJ/PF 30 MG/1 ML SDV ONE; LACTATED RINGERS 1000 ML IV PRN; LIDOCAINE 0.5% INJ-PF (5 MG/ML) 50 ML SDV SUBCUT PRN; MEPERIDINE HCL/PF INJ 25 MG/1 ML DISP.SYRIN IV PRN; MIDAZOLAM 2 MG/2 ML INJ ONE; MORPHINE SULFATE 10 MG/ML INJ IV PRN; MORPHINE SULFATE 10 MG/ML INJ ONE; NEOSTIGMINE METHYLSULFATE 10 MG/10 ML VIAL ONE; ONDANSETRON HCL INJ/PF 4 MG/2 ML SDV ONE; PHENYLEPHRINE HCL INJ/PF 10 MG/1 ML SDV ONE; PROMETHAZINE HCL INJ 25 MG/1 ML VIAL IV PRN; PROPOFOL INJ 200 MG/20 ML VIAL IV ONE; RINGERS SOLUTION,LACTATED 1,000 ML IV PRN; ROCURONIUM BROMIDE INJ 50 MG/5 ML VIAL IV ONE; SUCCINYLCHOLINE CHLORIDE INJ 200 MG/10 ML VIAL ONE
[2018-11-16] MEDS: OXYCODONE-ACETAMINOPHEN 5-325 MG TABLET PO PRN (12:14)
[2018-11-16] MEDS: MORPHINE SULFATE 10 MG/ML INJ IV PRN ×2 (13:32→21:00)
[2018-11-16] MEDS ORDERED: ACETAMINOPHEN 1,000 MG/100 ML RTUPB IV ONE (17:30)
[2018-11-16] MEDS: KETOROLAC TROMETHAMINE INJ/PF 30 MG/1 ML SDV IV SCH (18:47)
[2018-11-16] MEDS ORDERED: NICOTINE 21 MG/24 HR PATCH.TD24 TD SCH (21:30)
[2018-11-17] MEDS: KETOROLAC TROMETHAMINE INJ/PF 30 MG/1 ML SDV IV SCH (01:05)
[2018-11-17] MEDS: OXYCODONE-ACETAMINOPHEN 5-325 MG TABLET PO PRN (05:57)
--- NOTE | 2018-11-17 07:33 | PDOC DISCHARGE SUMMARY ---
General - Admit/Disc Date/PCP Admission Date/Primary Care Provider: 11/16/18 05:33 SAMAN OTERO Discharge Date: 11/17/18 - Discharge Diagnosis (1) Abnormal uterine bleeding Is this a current diagnosis for this admission?: Yes (2) Chronic pelvic pain in female Is this a current diagnosis for this admission?: Yes (3) Pelvic adhesions Is this a current diagnosis for this admission?: Yes - Additional Information Resuscitation Status: Full Code Discharge Diet: As Tolerated Discharge Activity: Balance Activity w/Rest, No Driving, No Lifting Over 10 Pounds, No Lifting/Push/Pulling, Pelvic Rest, No tub bath, Walk Frequently Home Medications: Lisinopril 20 mg PO QAM 07/18/17 Omeprazole 40 mg PO QAM 07/18/17 Gabapentin [Neurontin 300 mg Capsule] 300 mg PO DAILY 09/20/18 Oxycodone HCl/Acetaminophen [Oxycodone-Acetaminophen 10-325] 1 each PO Q6H PRN 09/20/18 Furosemide [Lasix 20 mg Tablet] 20 mg PO QAM #30 tablet 09/27/18 Albuterol Sulfate [Proair HFA Inhalation Aerosol 8.5 gm MDI] 2 puff IH Q4H PRN 11/16/18 Albuterol Sulfate [Ventolin 0.083% Neb 2.5 mg/3 mL Ampul] 2.5 mg NEB Q3HP PRN 11/16/18 Gabapentin [Neurontin 300 mg Capsule] 600 mg PO QHS 11/16/18 History of Present Illness History of Present Illness: DINH RAMSEY is a 43 year old female Hospital Course Hospital Course: Underwent robotic assisted total laparoscopic hysterectomy with bilateral salpingectomy and lysis of adhesions has had a unremarkable postoperative course. Is voiding ambulating well tolerating a regular diet and is ready for discharge home. Pain is controlled on current pain medications Physical Exam - Physical Exam Vital Signs: Temp Pulse Resp BP Pulse Ox 98.6 F 66 15 121/57 L 98 11/17/18 03:10 11/17/18 03:10 11/17/18 03:10 11/17/18 03:10 11/17/18 04:00 Pulse Oximeter Continuous Start: 11/16/18 11:14 Freq: RTQ4 Status: Active Protocol: Document 11/17/18 04:00 [facility] (Rec: 11/17/18 04:54 [facility] [id number]) Pulse Oximetry Assessment Oxygen Saturation (92-100) 98 Oxygen Flow Rate (L/min) 1.5 Oxygen Delivery Method Nasal Cannula Equipment Usage Equipment in Use Continuous Pulse Oximeter 24 Hour Charge Charge Now Continuous SpO2 Machine # 10 Additional RT Notes Other Patient said she didnot want to wear this equipment. Intake & Output 11/16/18 11/17/18 11/18/18 06:59 06:59 06:59 Intake Total 0 3964 Output Total 425 Balance 0 3539 Weight 118.84 kg 125.7 kg General appearance: PRESENT: no acute distress, cooperative - Abdomen is soft, nondistended, incisions are clean dry and intact Result Laboratory Results: 11/13/18 10:40 11/16/18 06:17 Plan Discharge Plan: Discharge home with plan to follow-up with Dr. Duenas in 2 weeks Acute Heart Failure - Is this a Heart Failure Patient?: No
[2018-11-17 07:53] VITALS: BP 123/54
[2018-11-17] MEDS ORDERED: IBUPROFEN 800 MG TABLET PO PRN (10:00)
== END 2018-11-17 08:39 | disposition home or self-care (01) ==
LOC: OROUT 11:25 → 4N 14:11 → 2S 14:11 → 4N 14:11 → OROUT 11-17 08:39 → UNDODISIN 11-17 08:39
PROVIDERS: ATTEND Obstetrics & Gynecology
DX: N99.4 Postprocedural pelvic peritoneal adhesions (principal); G89.29 Other chronic pain; R10.2 Pelvic and perineal pain; N88.8 Other specified noninflammatory disorders of cervix uteri; E11.9 Type 2 diabetes mellitus without complications; I10 Essential (primary) hypertension; Z83.3 Family history of diabetes mellitus; Z82.49 Family history of ischemic heart disease and other diseases of the circulatory system; Z79.899 Other long term (current) drug therapy; Z99.81 Dependence on supplemental oxygen
CPT/HCPCS: 58571; S2900; 36415; 80053; 81001; 84132; 84703; 85027; 86850; 86900; 86901; 88305; 88307; 93005; 93010; 944; 94640; 94660; 94762; A4649; J0131; J0330; J0690; J1100; J1885; J2250; J2270; J2370; J2405; J2704; J2710; J3010; J3490; J7120

== ENCOUNTER 2018-11-26 17:58 | Emergency (ER) | payer MEDICAID ==
[2018-11-26] MEDS ORDERED: OXYCODONE HCL IR 5 MG TABLET PO ONE (18:59)
--- NOTE | 2018-11-26 19:04 | ER Document Report ---
ED Medical Screen (RME) - General Chief Complaint: Post Surgical Pain Stated Complaint: ABDOMINAL PAIN, SWELLING Time Seen by Provider: 11/26/18 18:53 Primary Care Provider: WHIT PHELPS FNP-C [Primary Care Provider] - Follow up as needed Notes: 43-year-old female now postop day #10 status post partial hysterectomy presents to the emergency department for lower abdominal pain, significant abdominal distention, and urinary urgency and frequency. Patient states that the surgery went well and the shorts that she was wearing yesterday she was able to button up with slack and now she cannot come close to buttoning the top button. Patient states that she feels a deep "pulling" feeling deep to the incision site near her umbilicus. Denies fevers or chills, denies acute shortness of breath or chest pain, denies nausea or vomiting. EXAM: No acute distress and nontoxic-appearing, abdominal exam limited in triage room but patient does have tenderness to palpation over the incision site near the umbilicus, abdominal distention, bowel sounds heard. I have greeted and performed a rapid initial assessment of this patient. A comprehensive ED assessment and evaluation of the patient, analysis of test results and completion of medical decision making process will be conducted by an additional ED providers. TRAVEL OUTSIDE OF THE [place] IN LAST 30 DAYS: No - Related Data Allergies/Adverse Reactions: acetaminophen [From Fioricet] Allergy (Intermediate, Verified 11/26/18 17:59) Hives butalbital [From Fioricet] Allergy (Intermediate, Verified 11/26/18 17:59) Hives caffeine [From Fioricet] Allergy (Intermediate, Verified 11/26/18 17:59) Hives Past Medical History - Social History Chew tobacco use (# tins/day): No Drug Abuse: None - Past Medical History Cardiac Medical History: Reports: Hx Hypertension Denies: Hx Coronary Artery Disease, Hx Heart Attack Pulmonary Medical History: Reports: Hx Asthma, Hx Bronchitis, Hx COPD, Hx Pneumonia Neurological Medical History: Denies: Hx Cerebrovascular Accident, Hx Seizures Endocrine Medical History: Reports: Hx Diabetes Mellitus Type 2 Renal/ Medical History: Reports: Hx Kidney Stones - 2007. Denies: Hx Peritoneal Dialysis Musculoskeltal Medical History: Denies Hx Arthritis, Reports Hx Musculoskeletal Deformity, Reports Hx Musculoskeletal Trauma Skin Medical History: Reports Hx Cellulitis, Reports Hx MRSA Psychiatric Medical History: Reports: Hx Anxiety Infectious Medical History: Reports: Hx MRSA Past Surgical History: Reports: Hx Adenoidectomy, Hx Section, Hx Cholecystectomy, Hx Dilation and Curettage, Hx Kidney (Renal Surgery) - Lithotripsy 11/26, Hx Tonsillectomy, Hx Tubal Ligation, Hx Urinary Tract Surgery - Bladder sling - Immunizations Immunizations up to date: Yes Hx Diphtheria, Pertussis, Tetanus Vaccination: Yes - 2015 Physical Exam - Vital signs Vitals: Temp Pulse Resp BP Pulse Ox 98.8 F 99 18 169/96 H 93 11/26/18 18:02 11/26/18 18:02 11/26/18 18:02 11/26/18 18:02 11/26/18 18:02 Course - Vital Signs Vital signs: Temp Pulse Resp BP Pulse Ox 98.8 F 99 18 169/96 H 93 11/26/18 18:02 11/26/18 18:02 11/26/18 18:02 11/26/18 18:02 11/26/18 18:02 Doctor's Discharge - Discharge Referrals: WHIT PHELPS FNP-C [Primary Care Provider] - Follow up as needed
[2018-11-26 20:01] LABS: ABSOLUTE EOSINOPHILS # (AUTO) 0.6 10^3/uL (0.0-0.6); ABSOLUTE MONOCYTES (AUTO) 1.1 10^3/uL (0.1-1.4); ABSOLUTE NEUT (AUTO) 11.8 10^3/uL (1.7-8.2); BASOPHILS % (AUTO) 0.3 % (0-2); EOSINOPHILS % (AUTO) 3.7 % (0-6); HEMOGLOBIN 12.3 g/dL (12.0-15.5); LYMPHOCYTES % (AUTO) 17.9 % (13-45); MEAN CORPUSCULAR HEMOGLOBIN 29.2 pg (27.0-33.4); MEAN CORPUSCULAR HGB CONC 33.2 g/dL (32.0-36.0); MEAN CORPUSCULAR VOLUME 88 fl (80-97); MONOCYTES % (AUTO) 6.8 % (3-13); PLATELET COUNT 375 10^3/uL (150-450); RED BLOOD COUNT 4.21 10^6/uL (3.72-5.28); RED CELL DISTRIBUTION WIDTH 17.3 % (11.5-14.0); SEGMENTED NEUTROPHILS % (AUTO) 71.3 % (42-78); TOTAL CELLS COUNTED % (AUTO) 100 %; WHITE BLOOD COUNT 16.6 10^3/uL (4.0-10.5)
[2018-11-26 20:20] LABS: ALBUMIN 3.9 g/dL (3.5-5.0); ALKALINE PHOSPHATASE 66 U/L (38-126); ANION GAP 10 (5-19); ASPARTATE AMINO TRANSFERASE 23 U/L (14-36); BILIRUBIN,DIRECT 0.3 mg/dL (0.0-0.4); BILIRUBIN,TOTAL 0.3 mg/dL (0.2-1.3); BLOOD UREA NITROGEN 12 mg/dL (7-20); CALCIUM 9.5 mg/dL (8.4-10.2); CARBON DIOXIDE 31 mmol/L (22-30); CHLORIDE 101 mmol/L (98-107); GLUCOSE 83 mg/dL (75-110); TOTAL PROTEIN 7.1 g/dL (6.3-8.2)
[2018-11-26 20:31] LABS: APPEARANCE,URINE CLOUDY; BILIRUBIN,URINE NEGATIVE (NEGATIVE); COLOR,URINE YELLOW; GLUCOSE, URINE NEGATIVE (NEGATIVE); KETONES,URINE NEGATIVE (NEGATIVE); LEUKOCYTE ESTERASE,URINE NEGATIVE (NEGATIVE); NITRITE,URINE NEGATIVE (NEGATIVE); PROTEIN,URINE 30 mg/dL (NEGATIVE); URINE SPECIFIC GRAVITY 1.016; UROBILINOGEN,URINE NEGATIVE mg/dL (<2.0)
[2018-11-26] MEDS ORDERED: MORPHINE SULFATE 10 MG/ML INJ IV ONE (21:52)
[2018-11-26] MEDS ORDERED: ONDANSETRON HCL INJ/PF 4 MG/2 ML SDV IV ONE (21:52)
--- NOTE | 2018-11-26 21:57 | ER Document Report ---
ED GI/ - General Chief Complaint: Post Surgical Pain Stated Complaint: ABDOMINAL PAIN, SWELLING Time Seen by Provider: 11/26/18 18:53 Primary Care Provider: KAY PUENTES MD [ACTIVE STAFF] - Follow up tomorrow Notes: Patient is a 43-year-old female that comes to the emergency department for chief complaint of abdominal pain and swelling after a partial hysterectomy performed by Dr. Puentes on 11/16/2018. She states she started having increased sharp pain around the umbilicus area generally along with the swelling, she states that her abdomen is definitely swelling, yesterday she was able to button up the same shorts that she is wearing but now she cannot even come close to doing this. She states she has had some urinary frequency and mild discomfort in the abdomen with urination as well. She denies fever/chills, nausea/vomiting. She reports normal bowel movements (her ears are always loose), nonbloody. TRAVEL OUTSIDE OF THE [place] IN LAST 30 DAYS: No - Related Data Allergies/Adverse Reactions: acetaminophen [From Fioricet] Allergy (Intermediate, Verified 11/26/18 17:59) Hives butalbital [From Fioricet] Allergy (Intermediate, Verified 11/26/18 17:59) Hives caffeine [From Fioricet] Allergy (Intermediate, Verified 11/26/18 17:59) Hives Past Medical History - General Information source: Patient - Social History Smoking Status: Current Every Day Smoker Chew tobacco use (# tins/day): No Drug Abuse: None Lives with: Family Family History: Arthritis, CAD, CVA, DM, Hyperlipidemia, Hypertension Patient has suicidal ideation: No Patient has homicidal ideation: No - Past Medical History Cardiac Medical History: Reports: Hx Hypertension Denies: Hx Coronary Artery Disease, Hx Heart Attack Pulmonary Medical History: Reports: Hx Asthma, Hx Bronchitis, Hx COPD, Hx Pneumonia Neurological Medical History: Denies: Hx Cerebrovascular Accident, Hx Seizures Endocrine Medical History: Reports: Hx Diabetes Mellitus Type 2 Renal/ Medical History: Reports: Hx Kidney Stones - 2007. Denies: Hx Peritoneal Dialysis Musculoskeletal Medical History: Denies Hx Arthritis, Reports Hx Musculoskeletal Deformity, Reports Hx Musculoskeletal Trauma Skin Medical History: Reports Hx Cellulitis, Reports Hx MRSA Psychiatric Medical History: Reports: Hx Anxiety Infectious Medical History: Reports: Hx MRSA Past Surgical History: Reports: Hx Adenoidectomy, Hx Section, Hx Cholecystectomy, Hx Dilation and Curettage, Hx Kidney (Renal Surgery) - Lithotripsy 11/26, Hx Tonsillectomy, Hx Tubal Ligation, Hx Urinary Tract Surgery - Bladder sling - Immunizations Immunizations up to date: Yes Hx Diphtheria, Pertussis, Tetanus Vaccination: Yes - 2015 Review of Systems - Review of Systems Constitutional: No symptoms reported EENT: No symptoms reported Cardiovascular: No symptoms reported Respiratory: No symptoms reported Gastrointestinal: See HPI Genitourinary: See HPI Female Genitourinary: See HPI Musculoskeletal: No symptoms reported Skin: No symptoms reported Hematologic/Lymphatic: No symptoms reported Neurological/Psychological: No symptoms reported Physical Exam - Vital signs Vitals: Temp Pulse Resp BP Pulse Ox 98.8 F 99 18 169/96 H 93 11/26/18 18:02 11/26/18 18:02 11/26/18 18:02 11/26/18 18:02 11/26/18 18:02 - Notes Notes: GENERAL: Alert, interacts well. No acute distress. HEAD: Normocephalic, atraumatic. EYES: Pupils equal, round, and reactive to light. Extraocular movements intact. ENT: Oral mucosa moist, tongue midline. Oropharynx unremarkable. Airway patent. LUNGS: Clear to auscultation bilaterally, no wheezes, rales, or rhonchi. No respiratory distress. HEART: Regular rate and rhythm. No murmur ABDOMEN: Horizontal surgical wound just below and at the umbilicus and also in the left lower abdomen, these are well-healed with no abnormal tenderness, erythema or dehiscence. There is swelling of the abdomen but no specific tenderness. No guarding or rigidity. EXTREMITIES: Moves all 4 extremities spontaneously. No edema, normal radial and dorsalis pedis pulses bilaterally. No cyanosis. BACK: no cervical, thoracic, lumbar midline tenderness. No saddle anesthesia, normal distal neurovascular exam. Moves all extremities in full range of motion. NEUROLOGICAL: Alert and oriented x3. Normal speech. Cranial nerves II through XII grossly intact. PSYCH: Normal affect, normal mood. SKIN: Warm, dry, normal turgor. No rashes or lesions noted. Course - Re-evaluation Re-evalutation: CBC shows leukocytosis at 16,000 with elevation of neutrophils but no bandemia. Chemistry nonspecific. Urinalysis nonspecific. Fortunately on evaluation patient is very well-appearing, smiling, talkative, has minimal generalized abdominal tenderness without guarding, however she does appear to have some abdominal swelling. No fever. Vital signs unremarkable except for mild hypertension. CAT scan showing anasarca, inflammatory changes near the umbilicus with small amount of air, possibly supposed changes. I discussed with Dr. Andrade. She recommends discussion with SILK SCREEN PRINTER for their recommendation. I discussed with Dr. Hickey, SILK SCREEN PRINTER on-call. I discussed patient's surgery, presentation, exam, laboratory work-up, and CAT scan imaging. He states that he does not have any additional recommendations at this time and patient can be discharged to follow-up in the office in the morning for additional evaluation at that time. Patient does state agreement with this plan, she was provided with a few pain medication to go home with from here, she states she will be seen in the office and she will call in the morning. She states she will return if she worsens in any way. - Vital Signs Vital signs: Temp Pulse Resp BP Pulse Ox 98.6 F 87 16 167/100 H 100 11/26/18 23:34 11/26/18 23:34 11/26/18 23:34 11/26/18 23:34 11/26/18 23:34 - Laboratory Result Diagrams: 11/26/18 19:15 11/26/18 19:15 Laboratory results interpreted by me: 11/26/18 11/26/18 11/26/18 19:15 19:15 19:15 WBC 16.6 H RDW 17.3 H Absolute Neuts (auto) 11.8 H Carbon Dioxide 31 H Urine Protein 30 H Discharge - Discharge Clinical Impression: Post-op pain, Abdominal swelling Condition: Stable Disposition: HOME, SELF-CARE Additional Instructions: Your imaging shows some postsurgical changes and also anasarca (this is the swelling in your abdomen). I spoke with Dr. Hickey, SILK SCREEN PRINTER geospatial information scientist tonight, he recommends that he be seen in the office tomorrow for additional evaluation and management. Come back if you are worse including vomiting, fever, severe worsening pain, or any other concerning symptoms. Referrals: KAY PUENTES MD [ACTIVE STAFF] - Follow up tomorrow
--- NOTE | 2018-11-26 22:07 | RADIOLOGY REPORT (SQ) ---
EXAM DESCRIPTION: CT ABDOMEN PELVIS WITH IV CONTRAST COMPLETED DATE/TME: 11/26/2018 19:00 CLINICAL HISTORY: 43 years, Female, Abdominal pain, distention POD#10 COMPARISON: Prior study from 09/27/2017 TECHNIQUE: Contrast enhanced CT of the abdomen/pelvis was performed. Coronal and sagittal reformations were created. Images stored on PACS. All CT scanners at this facility use dose modulation, iterative reconstruction, and/or weight based dosing when appropriate to reduce radiation dose to as low as reasonably achievable (ALARA). [facility]: Dose Right [facility]: CareDose [facility]: Dose Right [facility]: Teradose 4D [facility]: ITA Software LIMITATIONS: None. FINDINGS: Limited evaluation of the lower chest reveals clear lung bases. The liver, spleen, pancreas, and both adrenal glands appear normal. The gallbladder is absent. Both kidneys enhance symmetrically. No hydronephrosis or hydroureter. The urinary bladder is partially collapsed, thus its evaluation is limited. Uterus is absent. Both ovaries show no suspicious finding. The small and large bowel appear normal in caliber. No evidence of bowel obstruction. The appendix is normal. Vascular structures opacify with contrast normally. No suspicious lymphadenopathy or drainable fluid collections are appreciated. Diffuse anasarca is noted. In addition, there is mild inflammatory stranding about the umbilicus with a tiny focus of gas density about the umbilicus as well on image 44 series 3, nonspecific. Bone windows show no destructive osseous lesions. IMPRESSION: Mild inflammatory stranding about the soft tissues adjacent to the umbilicus with a tiny focus of gas density at this location, nonspecific. Correlate with physical exam/history of recent procedure. Otherwise, no acute abnormality within the abdomen or pelvis. Diffuse anasarca. TECHNICAL DOCUMENTATION: Quality ID # [id number]: Final reports with documentation of one or more dose reduction techniques (e.g., Automated exposure control, adjustment of the mA and/or kV according to patient size, use of iterative reconstruction technique) copyright 2011 [employer]- All Rights Reserved
[2018-11-26] MEDS ORDERED: HYDROCODONE/ACETAMINOPHEN 5-325 MG (6 TAB/ER DISP) PO PRN (23:21)
[2018-11-26 23:38] VITALS: BP 167/100
== END 2018-11-26 23:38 | disposition home or self-care (01) ==
LOC: ER 17:58
DX: G89.18 Other acute postprocedural pain (principal); R19.00 Intra-abdominal and pelvic swelling, mass and lump, unspecified site; R10.9 Unspecified abdominal pain; M79.89 Other specified soft tissue disorders; Z90.711 Acquired absence of uterus with remaining cervical stump; R35.0 Frequency of micturition; F17.200 Nicotine dependence, unspecified, uncomplicated; I10 Essential (primary) hypertension; J45.909 Unspecified asthma, uncomplicated; J44.9 Chronic obstructive pulmonary disease, unspecified; E11.9 Type 2 diabetes mellitus without complications
CPT/HCPCS: 36415; 87086; 85025; 87088; 80053; 81001; 87186; 74177; J2270; J2405; J3490; 96374; 96375; 99284

== ENCOUNTER 2018-12-23 10:58 | Emergency (ER) | payer MEDICAID ==
[2018-12-23] MEDS ORDERED: KETOROLAC TROMETHAMINE 60 MG/2 ML SDV IM ONE (11:15)
[2018-12-23] MEDS ORDERED: ONDANSETRON 4 MG TAB.RAPDIS PO ONE (11:15)
--- NOTE | 2018-12-23 11:15 | ER Document Report ---
ED Medical Screen (RME) - General Stated Complaint: ABDOMINAL PAIN/POST SURGERY Time Seen by Provider: 12/23/18 11:12 Primary Care Provider: WHIT PHELPS FNP-C [Primary Care Provider] - Follow up as needed Mode of Arrival: Ambulatory Information source: Patient Notes: 43-year-old female presents to ED for complaint of pain to the left upper abdomen. She states she had a hysterectomy with adhesion removal 5 weeks ago. She states now she has a hard ball in the left upper quadrant that is very painful and keeps her from sleep with. She states her 6-week checkup is next week but the pain is to be severe to wait that long. She states her temp is been 99-100 but has not gone over that but she did not have a fever at all and came in today. She states she has had some nausea but no vomiting. She is alert oriented respirations regular and unlabored speaking in full sentences walks with even steady gait at this time. I have greeted and performed a rapid initial assessment of this patient. A comprehensive ED assessment and evaluation of the patient, analysis of test results and completion of medical decision making process will be conducted by an additional ED providers. TRAVEL OUTSIDE OF THE [place] IN LAST 30 DAYS: No - Related Data Allergies/Adverse Reactions: acetaminophen [From Fioricet] Allergy (Intermediate, Verified 11/26/18 17:59) Hives butalbital [From Fioricet] Allergy (Intermediate, Verified 11/26/18 17:59) Hives caffeine [From Fioricet] Allergy (Intermediate, Verified 11/26/18 17:59) Hives Past Medical History - Past Medical History Cardiac Medical History: Reports: Hx Hypertension Denies: Hx Coronary Artery Disease, Hx Heart Attack Pulmonary Medical History: Reports: Hx Asthma, Hx Bronchitis, Hx COPD, Hx Pneumonia Neurological Medical History: Denies: Hx Cerebrovascular Accident, Hx Seizures Endocrine Medical History: Reports: Hx Diabetes Mellitus Type 2 Renal/ Medical History: Reports: Hx Kidney Stones - 2007. Denies: Hx Peritoneal Dialysis Musculoskeltal Medical History: Denies Hx Arthritis, Reports Hx Musculoskeletal Deformity, Reports Hx Musculoskeletal Trauma Skin Medical History: Reports Hx Cellulitis, Reports Hx MRSA Psychiatric Medical History: Reports: Hx Anxiety Infectious Medical History: Reports: Hx MRSA Past Surgical History: Reports: Hx Adenoidectomy, Hx Section, Hx Cholecystectomy, Hx Dilation and Curettage, Hx Hysterectomy, Hx Kidney (Renal Surgery) - Lithotripsy 11/26, Hx Tonsillectomy, Hx Tubal Ligation, Hx Urinary Tract Surgery - Bladder sling - Immunizations Immunizations up to date: Yes Hx Diphtheria, Pertussis, Tetanus Vaccination: Yes - 2015 Physical Exam - Vital signs Vitals: Temp Pulse Resp BP Pulse Ox 98.9 F 92 22 H 177/157 H 94 12/23/18 11:08 12/23/18 11:08 12/23/18 11:08 12/23/18 11:08 12/23/18 11:08 Course - Vital Signs Vital signs: Temp Pulse Resp BP Pulse Ox 98.9 F 92 22 H 177/157 H 94 12/23/18 11:08 12/23/18 11:08 12/23/18 11:08 12/23/18 11:08 12/23/18 11:08 Doctor's Discharge - Discharge Referrals: WHIT PHELPS FNP-C [Primary Care Provider] - Follow up as needed
--- NOTE | 2018-12-23 12:12 | RADIOLOGY REPORT (SQ) ---
EXAM DESCRIPTION: U/S ABDOMEN LIMITED W/O DOP COMPLETED DATE/TIME: 12/23/2018 11:55 am REASON FOR STUDY: left upper quad pain above surgical incision COMPARISON: CT abdomen and pelvis 11/26/2018. TECHNIQUE: Dynamic and static grayscale images acquired of the left upper quadrant abdominal wall at the site of patient's complaint and recorded on PACS. Additional selected color Doppler images recor ded. LIMITATIONS: None. FINDINGS: Ultrasound evaluation of the left upper quadrant abdominal wall at the site of patient's c omplaint was performed. No fluid collection or soft tissue abnormality was identified at the site. IMPRESSION: No significant findings identified by ultrasound at the left upper quadrant abdominal wa ll. TECHNICAL DOCUMENTATION: JOB ID: [id number] [employer]- All Rights Reserved Reading location - IP/workstation name: [email or web address]
[2018-12-23 12:19] LABS: ABSOLUTE BASOPHILS # (AUTO) 0.2 10^3/uL (0.0-0.2); ABSOLUTE EOSINOPHILS # (AUTO) 0.6 10^3/uL (0.0-0.6); ABSOLUTE LYMPHOCYTES (AUTO) 3.2 10^3/uL (0.5-4.7); ABSOLUTE MONOCYTES (AUTO) 0.7 10^3/uL (0.1-1.4); ABSOLUTE NEUT (AUTO) 6.8 10^3/uL (1.7-8.2); BASOPHILS % (AUTO) 1.4 % (0-2); EOSINOPHILS % (AUTO) 5.6 % (0-6); HEMATOCRIT 42.8 % (36.0-47.0); LYMPHOCYTES % (AUTO) 27.4 % (13-45); MEAN CORPUSCULAR HEMOGLOBIN 28.6 pg (27.0-33.4); MEAN CORPUSCULAR HGB CONC 32.6 g/dL (32.0-36.0); MEAN CORPUSCULAR VOLUME 88 fl (80-97); MONOCYTES % (AUTO) 6.5 % (3-13); PLATELET COUNT 346 10^3/uL (150-450); RED BLOOD COUNT 4.88 10^6/uL (3.72-5.28); RED CELL DISTRIBUTION WIDTH 16.2 % (11.5-14.0); SEGMENTED NEUTROPHILS % (AUTO) 59.1 % (42-78); TOTAL CELLS COUNTED % (AUTO) 100 %; WHITE BLOOD COUNT 11.5 10^3/uL (4.0-10.5)
[2018-12-23 12:31] LABS: ALKALINE PHOSPHATASE 81 U/L (38-126); ANION GAP 12 (5-19); ASPARTATE AMINO TRANSFERASE 22 U/L (14-36); BILIRUBIN,DIRECT 0.1 mg/dL (0.0-0.4); BILIRUBIN,TOTAL 0.2 mg/dL (0.2-1.3); BLOOD UREA NITROGEN 9 mg/dL (7-20); CALCIUM 9.4 mg/dL (8.4-10.2); CARBON DIOXIDE 26 mmol/L (22-30); CHLORIDE 102 mmol/L (98-107); GLUCOSE 132 mg/dL (75-110); POTASSIUM 3.9 mmol/L (3.6-5.0); TOTAL PROTEIN 7.6 g/dL (6.3-8.2)
[2018-12-23 13:39] LABS: APPEARANCE,URINE SLIGHTLY-CLOUDY; BILIRUBIN,URINE NEGATIVE (NEGATIVE); COLOR,URINE YELLOW; GLUCOSE, URINE NEGATIVE (NEGATIVE); KETONES,URINE NEGATIVE (NEGATIVE); LEUKOCYTE ESTERASE,URINE TRACE (NEGATIVE); NITRITE,URINE NEGATIVE (NEGATIVE); PROTEIN,URINE 30 mg/dL (NEGATIVE); URINE SPECIFIC GRAVITY 1.027; UROBILINOGEN,URINE NEGATIVE mg/dL (<2.0)
--- NOTE | 2018-12-23 13:58 | ER Document Report ---
ED GI/ - General Chief Complaint: Abdominal Pain Stated Complaint: ABDOMINAL PAIN/POST SURGERY Time Seen by Provider: 12/23/18 11:12 Primary Care Provider: KAY PUENTES MD [ACTIVE STAFF] - 12/29/18 Mode of Arrival: Ambulatory Notes: Patient is complaining of pain in the left upper quadrant of her abdomen. She underwent a hysterectomy as well as removal of adhesions surgically about 5 weeks ago. She was not having this pain at that time. About a week and a half after that surgery, she did begin to develop left upper quadrant abdominal pain. She feels as if there may be a knot present there. It is painful when she coughs or strains or lifts or bends that area. She denies having any nausea or vomiting or change in bowel habits. She has had some persistent coughing. Has not noted any fever. Patient says that the pain has been getting worse and even though she is scheduled to see her surgeon Tuesday, she felt she could not wait any longer. Patient has had a tubal ligation, cholecystectomy, and the previously mentioned above hysterectomy. TRAVEL OUTSIDE OF THE [place] IN LAST 30 DAYS: No - Related Data Allergies/Adverse Reactions: acetaminophen [From Fioricet] Allergy (Intermediate, Verified 11/26/18 17:59) Hives butalbital [From Fioricet] Allergy (Intermediate, Verified 11/26/18 17:59) Hives caffeine [From Fioricet] Allergy (Intermediate, Verified 11/26/18 17:59) Hives Past Medical History - General Information source: Patient - Social History Smoking Status: Unknown if Ever Smoked Family History: Reviewed & Not Pertinent, Arthritis, CAD, CVA, DM, Hyperl ipidemia, Hypertension Patient has suicidal ideation: No Patient has homicidal ideation: No - Past Medical History Cardiac Medical History: Reports: Hx Hypertension Pulmonary Medical History: Reports: Hx Asthma, Hx Bronchitis, Hx COPD, Hx Pneumonia Endocrine Medical History: Reports: Hx Diabetes Mellitus Type 2 Renal/ Medical History: Reports: Hx Kidney Stones - 2007 Musculoskeletal Medical History: Reports Hx Musculoskeletal Deformity, Reports Hx Musculoskeletal Trauma Skin Medical History: Reports Hx Cellulitis, Reports Hx MRSA Psychiatric Medical History: Reports: Hx Anxiety Infectious Medical History: Reports: Hx MRSA Past Surgical History: Reports: Hx Adenoidectomy, Hx Section, Hx Evelia cystectomy, Hx Dilation and Curettage, Hx Hysterectomy, Hx Kidney (Renal Surgery) - Lithotripsy 11/26, Hx Tonsillectomy, Hx Tubal Ligation, Hx Urinary Tract Surgery - Bladder sling - Immunizations Immunizations up to date: Yes Hx Diphtheria, Pertussis, Tetanus Vaccination: Yes - 2015 Review of Systems - Review of Systems Notes: REVIEW OF SYSTEMS: CONSTITUTIONAL : Denies fever. EENT: Denies eye, ear, nose or mouth or throat pain or other symptoms. CARDIOVASCULAR: Denies chest pain. RESPIRATORY: Denies cough, chest congestion, or shortness of breath. GASTROINTESTINAL: See HPI. GENITOURINARY: Denies difficulty or painful urinating, urinary frequency, blood in urine. MUSCULOSKELETAL: Denies back or neck pain. Denies joint pain or swelling. SKIN: Denies rash or skin lesions. NEUROLOGICAL: Denies LOC or altered mental status. Denies headache. Denies sensory loss or motor deficits. ALL OTHER SYSTEMS REVIEWED AND NEGATIVE. Physical Exam - Vital signs Vitals: Temp Pulse Resp BP Pulse Ox 98.9 F 92 22 H 177/157 H 94 12/23/18 11:08 12/23/18 11:08 12/23/18 11:08 12/23/18 11:08 12/23/18 11:08 Interpretation: Normal, Hypertensive - Obviously incorrect blood pressure, but other vital signs are normal. Notes: PHYSICAL EXAMINATION: GENERAL: Well-appearing, in no acute distress. Anxious and appears uncomfortable. HEAD: Atraumatic, normocephalic. EYES: Pupils equal round and reactive to light, extraocular movements intact. ENT: oropharynx clear without exudates. Moist mucous membranes. NECK: Normal range of motion, supple. LUNGS: Breath sounds clear and equal bilaterally. HEART: Regular rate and rhythm without murmurs. ABDOMEN: Soft, but tender in the left upper quadrant. However, no guarding or rebound. No masses. BACK: No tenderness throughout entire back. EXTREMITIES: Normal range of motion without pain. NEUROLOGICAL: Normal speech, normal gait. Normal sensory, motor, and reflex exams. Awake, alert, and oriented x3. Cranial nerves normal. SKIN: Warm, dry, no rashes. Course - Re-evaluation Re-evalutation: 12/23/18 20:51 Patient's work-up is essentially normal. She has only minimal elevation of her white count and I do not think is clinically significant. She remains tender in the left upper quadrant. When telling her that everything is coming back to normal and without an explanation for us causing her symptoms, she became almost tearful because she is not sure what is causing her pain. Patient was discharged with a prescription for 10 Percocets to hold her until she sees her [employer] surgeon Tuesday. After the patient was discharged, I got a phone call from [place] pharmacy where the patient was trying to fill her prescription. She had been given a prescription for both Zofran and oxycodone 5 mg but she only wanted to fill the prescription for the oxycodone. Additionally, the pharmacist called to make sure I was aware the patient was in a pain management program and I told the pharmacist that the patient had not inform you that. Pharmacist said the patient just got a prescription filled for either 100-120 oxycodone 5 mg just a couple of weeks ago. Patient had not inform me of that as well. I therefore decided to have the pharmacist cancel the prescription for the oxycodone. - Vital Signs Vital signs: Temp Pulse Resp BP Pulse Ox 98.5 F 83 18 166/101 H 94 12/23/18 14:04 12/23/18 14:04 12/23/18 14:04 12/23/18 14:04 12/23/18 14:04 - Laboratory Result Diagrams: 12/23/18 12:00 12/23/18 12:00 Laboratory results interpreted by me: 12/23/18 12/23/18 12/23/18 12:00 12:00 13:13 WBC 11.5 H RDW 16.2 H Glucose 132 H Urine Protein 30 H Ur Leukocyte Esterase TRACE H Discharge - Discharge Clinical Impression: Abdominal pain Condition: Stable Disposition: HOME, SELF-CARE Additional Instructions: ABDOMINAL PAIN: There are many causes of abdominal pain. Pain can mean a serious problem requiring surgery (such as appendicitis). It can also be an innocent problem that goes away on its own (such as a viral infection). Often, time must pass to determine the cause of pain. The physician does not feel that hospitalization is necessary, at present. Things may change within the next 24 hours. Call the doctor or come back for re- examination if any problems occur, such as: (1) Pain that becomes more severe, steady, or becomes concentrated in one specific area. Also, pain that is more severe with movement or coughing. (2) Vomiting that persists or becomes more frequent. (3) Blood in the vomitus, urine, or bowel movements. Blood in the stool may have a tarry or black appearance. (4) Shaking chills or fever greater than 100 degrees F. (5) The abdomen becomes more distended or swollen. (6) Bowel movements cease. (7) Failure to improve as expected. NORMAL EXAM AND WORKUP: At this time, your examination and workup show no significant abnormality. No significant abnormal physical findings are noted. All laboratory, EKG, and imaging (x-ray, CT scans, ultrasound) studies that were ordered show no significant abnormality. Although your examination and all studies that were ordered showed no significant abnormal finding, there are no examinations and no studies that are 100% accurate. There is always the possibility that some abnormality could exist and not be detected with physical examination or within the limits and capabilities of laboratory and other studies. You should return or follow up as you were instructed on your visit today for further evaluation if your symptoms do not resolve. TORADOL INJECTION: You have been given an injection of ketorolac tromethamine (Toradol). This is an excellent, safe drug for pain control. It also has potent antiinflamm atory action. You should have significant pain relief within about one hour. Toradol is not addicting and is non-sedating. It does not interfere with driving or work. Call or return if you develop itching, hives, shortness of breath, or rash. ANTINAUSEA MEDICATION: You have been given a medication to suppress nausea and vomiting. This type of medication can be given as a shot, pill, or suppository. It will usually last for many hours. Pills and shots usually last six to eight hours, suppositories last about 12 hours. For the typical illness, only one or two doses of the me dication may be necessary. Mild lightheadedness may occur. This type of medicine can cause patricia wsiness. Do not drive or operate dangerous machinery while under its influence. Do not mix with alcohol. See your doctor at once if you have muscle spasms or tightness, or uncontrollable motions (particularly of the neck, mouth, or jaw). Persistent vomiting or severe lightheadedness should also be evaluated by the physician. ORAL NARCOTIC MEDICATION: You have been given a prescription for pain control. This medication is a narcotic. It's best taken with food, as nausea can result if taken on an empty stomach. Don't operate machinery or drive within six hours of taking this medication. Do not combine this medicine with alcohol, or with any medication which can cause sedation (such as cold tablets or sleeping pills) unless you get permission from the physician. Narcotics tend to cause constipation. If possible, drink plenty of fluids and eat a diet high in fiber and fruits. Please be aware that prescription narcotics also have the potential for abuse. People become addicted to these medications because of the general sense of wellbeing that they induce. This feeling along with a significant reduction in tension, anxiety, and aggression provides a stimulating seductive quality to these drugs. Once your pain is under control, we encourage you to discard your unused narcotics. FOLLOW-UP CARE: If you have been referred to a physician for follow-up care, call the physicians office for an appointment as you were instructed or within the next two days. If you experience worsening or a significant change in your symptoms, notify the physician immediately or return to the Emergency Department at any time for re-evaluation. Keep your appointment to see Dr. Puentes on Tuesday, as scheduled. If you develop new or worsening symptoms such as high fever, return for us to reevaluate your condition. Prescriptions: Oxycodone HCl [Oxy-Ir 5 mg Tablet] 5 mg PO Q4HP PRN #10 tablet PRN Reason: Ondansetron [Zofran Odt 4 mg Tablet] 1 - 2 tab PO Q4H PRN #15 tab.rapdis PRN Reason: For Nausea/Vomiting Referrals: KAY PUENTES MD [ACTIVE STAFF] - 12/29/18
[2018-12-23 14:05] VITALS: BP 166/101
[2018-12-23] MEDS ORDERED: OXYCODONE HCL IR 5 MG TABLET PO ONE (14:10)
[2018-12-23 18:04] LABS: URINE AMPHETAMINES SCREEN NEGATIVE; URINE BARBITURATES SCREEN NEGATIVE; URINE BENZODIAZEPINES SCREEN NEGATIVE; URINE COCAINE SCREEN NEGATIVE; URINE MARIJUANA (THC) SCREEN NEGATIVE; URINE METHADONE SCREEN NEGATIVE; URINE PHENCYCLIDINE SCREEN NEGATIVE
== END 2018-12-23 14:26 | disposition home or self-care (01) ==
LOC: ER 10:58
DX: R10.12 Left upper quadrant pain (principal); R10.812 Left upper quadrant abdominal tenderness; R05 Cough; I10 Essential (primary) hypertension; E11.9 Type 2 diabetes mellitus without complications; J44.9 Chronic obstructive pulmonary disease, unspecified; Z98.51 Tubal ligation status; Z90.710 Acquired absence of both cervix and uterus; Z90.49 Acquired absence of other specified parts of digestive tract; Z88.6 Allergy status to analgesic agent; Z88.5 Allergy status to narcotic agent
CPT/HCPCS: 36415; 85025; 80053; 81001; 80307; 76705; J1885; S0119; J3490; 96372; 99284

== ENCOUNTER 2020-01-01 19:51 | Emergency (ER) | payer MEDICARE, MEDICAID ==
[2020-01-01] MEDS ORDERED: METHYLPREDNISOLONE INJ 125 MG/2 ML SDV IM ONE (21:25)
[2020-01-01] MEDS ORDERED: ACETAMINOPHEN 325 MG TABLET PO ONE (21:25)
--- NOTE | 2020-01-01 21:26 | ER Document Report ---
HPI - HPI Patient complains to provider of: fall Time Seen by Provider: 01/01/20 21:18 Pain Level: 3 Context: 44-year-old female past medical history significant for hypertension presents to the emergency room complaining of some right lower back pain that radiates down her right hip for the past 2 weeks. Patient states she slipped and fell forward 2 weeks ago landing on her knees and hands. States she did not injure her back at that time. Does have a history of chronic back pain with herniated disks. States she has been taking ibuprofen with minimal relief. She denies any loss of control of her bowels or bladder. Denies any nausea or vomiting. No diarrhea. No abdominal pain. No recent travel. No COVID-19 exposure. Associated Symptoms: None Exacerbated by: Movement Relieved by: Remaining still Similar symptoms previously: No Recently seen / treated by doctor: No - ROS Systems Reviewed and Negative: Yes All other systems reviewed and negative - NEURO Neurology: DENIES: Weakness - GASTROINTESTINAL Gastrointestinal: DENIES: Nausea - URINARY Urinary: DENIES: Dysuria - REPRODUCTIVE Reproductive: DENIES: : - MUSCULOSKELETAL Musculoskeletal: REPORTS: Extremity pain, Back Pain - DERM Skin Color: Normal Skin Problems: None Past Medical History - General Information source: Patient - Social History Smoking Status: Current Every Day Smoker Frequency of alcohol use: None Drug Abuse: None Family History: Reviewed & Not Pertinent, Arthritis, CAD, CVA, DM, Hyperlipidemia, Hypertension - Past Medical History Cardiac Medical History: Reports: Hx Hypertension Denies: Hx Coronary Artery Disease, Hx Heart Attack Pulmonary Medical History: Reports: Hx Asthma, Hx Bronchitis, Hx COPD, Hx Pneumonia Neurological Medical History: Denies: Hx Cerebrovascular Accident, Hx Seizures Endocrine Medical History: Reports: Hx Diabetes Mellitus Type 2 Renal/ Medical History: Reports: Hx Kidney Stones - 2007. Denies: Hx Peritoneal Dialysis Musculoskeletal Medical History: Denies Hx Arthritis, Reports Hx Musculoskeletal Deformity, Reports Hx Musculoskeletal Trauma Skin Medical History: Reports Hx Cellulitis, Reports Hx MRSA Psychiatric Medical History: Reports: Hx Anxiety Infectious Medical History: Reports: Hx MRSA Past Surgical History: Reports: Hx Adenoidectomy, Hx Section, Hx Cholecystectomy, Hx Dilation and Curettage, Hx Hysterectomy, Hx Kidney (Renal Surgery) - Lithotripsy 11/26, Hx Tonsillectomy, Hx Tubal Ligation, Hx Urinary Tract Surgery - Bladder sling - Immunizations Immunizations up to date: Yes Hx Diphtheria, Pertussis, Tetanus Vaccination: Yes - 2016 Vertical Provider Document - CONSTITUTIONAL Agree With Documented VS: Yes Exam Limitations: No Limitations - INFECTION CONTROL TRAVEL OUTSIDE OF THE [place] IN LAST 30 DAYS: No - HEENT HEENT: Atraumatic, Normocephalic - NECK Neck: Normal Inspection, Supple, Thyroid Normal - RESPIRATORY Respiratory: Breath Sounds Normal, No Respiratory Distress - CARDIOVASCULAR Cardiovascular: No Murmur, Tachycardia - BACK Back: Abnormal Inspection - Patient with tenderness on palpation from L4-S1. There is tenderness of the right sciatic notch. There is tenderness over the right iliac crest. Lower lumbar muscle spasms noted.. negative: CVA Tenderness-Right, CVA Tenderness-Left - MUSCULOSKELETAL/EXTREMETIES Musculoskeletal/Extremeties: FROM, Tender - Tenderness noted over the right iliac crest. Full range of motion with flexion, extension internal and external rotation of the right hip. No obvious deformity noted. Notes: Negative straight leg raising bilaterally - NEURO Level of Consciousness: Awake, Alert, Appropriate Motor/Sensory: No Motor Deficit, No Sensory Deficit Notes: Ambulatory with a steady gait. Neurovascular intact. - DERM Integumentary: Warm, Dry, No Rash Course - Re-evaluation Re-evalutation: 01/01/20 22:52 Patient is resting comfortably with decreased pain. She is ambulatory with a steady gait. Also reviewed x-ray results with the patient. She was counseled to take the medications as prescribed. Follow-up with her primary care physician as scheduled. Patient was given strict return to the emergency room guidelines. Return for any new or worsening symptoms. All questions were answered. Patient verbalized understanding and agrees with plan of care. - Diagnostic Test Radiology reviewed: Reports reviewed Discharge - Discharge Clinical Impression: Right sided sciatica, Right hip pain Condition: Stable Disposition: HOME, SELF-CARE Instructions: Sciatica ([facility]), Bursitis ([facility]) Additional Instructions: You have been seen in the Emergency Department (ED) today for sciatica and right hip pain. Your workup and exam have not shown any acute abnormalities and you are likely suffering from muscle strain or possible problems with your discs, but there is no treatment that will fix your symptoms at this time. Please take the Flexeril and the prednisone that has been prescribed as directed. You should also purchase a local lidocaine cream such as "aspercreme with lidocaine" and use per bottle instructions to the affected area. Apply heat to the area as often as you are able. Continue to keep active and avoid prolonged periods of bed rest. Please follow up with your doctor as soon as possible regarding today's ED visit and your back pain. Return to the ED for worsening back pain, fever, weakness or numbness of either leg, or if you develop either (1) an inability to urinate or have bowel movements, or (2) loss of your ability to control your bathroom functions (if you start having "accidents"), or if you develop other new symptoms that concern you.concern you. Prescriptions: Prednisone [Deltasone 20 mg Tablet] See Protocol PO DAILY 9 Days #18 tablet Cyclobenzaprine HCl [Flexeril 10 mg Tablet] 10 mg PO TIDP PRN #15 tab PRN Reason: Referrals: WHIT PHELPS FNP-C [Primary Care Provider] - Follow up as needed
--- NOTE | 2020-01-01 22:38 | RADIOLOGY REPORT (SQ) ---
Pelvis and right hip x-ray two views on 01/01/2020 at 9:59 PM CLINICAL INDICATION: Right hip pain COMPARISON: CT from 11/26/2018 FINDINGS: The hips are well located. The SI joints are well aligned. There are no fractures. No significant degenerative changes are noted in the hips. No bony abnormality is noted. IMPRESSION: No acute abnormality.
[2020-01-01 23:41] VITALS: BP 168/72
== END 2020-01-01 23:35 | disposition home or self-care (01) ==
LOC: ER 19:51
DX: M54.41 Lumbago with sciatica, right side (principal); F17.200 Nicotine dependence, unspecified, uncomplicated; I10 Essential (primary) hypertension; J44.9 Chronic obstructive pulmonary disease, unspecified; E11.9 Type 2 diabetes mellitus without complications
CPT/HCPCS: 99284; 96372; 73502; A9270; J2930

== ENCOUNTER → 2020-01-24 | Day surgery (SDC) | payer MEDICARE, MEDICAID ==
[~2020-01-24] MED LIST changes: -ACETAMINOPHEN 1,000 MG/100 ML RTUPB IV ONE; +BUPIVACAINE HCL 0.5 % INJ/PF 30 ML SDV ONE; -CEFAZOLIN 1 GM/D5W RTU 1 GM/50 ML RTUPB IV ONE; -CEFAZOLIN 1 GM/D5W RTU 1 GM/50 ML RTUPB IV PRN; -DEXAMETHASONE SOD PHOSPHATE INJ 4 MG/1 ML VIAL ONE; -DIPHENHYDRAMINE HCL 50 MG/ML VIAL IV PRN; -FENTANYL CITRATE INJ/PF 100 MCG/2 ML AMPUL IV PRN; -FENTANYL CITRATE INJ/PF 100 MCG/2 ML AMPUL ONE; -FENTANYL CITRATE INJ/PF 250 MCG/5 ML AMPULE ONE; -GLYCOPYRROLATE 1 MG/5 ML VIAL ONE; -KETOROLAC TROMETHAMINE INJ/PF 30 MG/1 ML SDV ONE; -LACTATED RINGERS 1000 ML IV PRN; -LIDOCAINE 0.5% INJ-PF (5 MG/ML) 50 ML SDV SUBCUT PRN; +LIDOCAINE 1% INJ-PF (10 MG/ML) 30 ML SDV ONE; +LIDOCAINE 2% INJ (20 MG/ML) 20 ML MDV ONE; -MEPERIDINE HCL/PF INJ 25 MG/1 ML DISP.SYRIN IV PRN; -MIDAZOLAM 2 MG/2 ML INJ ONE; -MORPHINE SULFATE 10 MG/ML INJ IV PRN; -MORPHINE SULFATE 10 MG/ML INJ ONE; -NEOSTIGMINE METHYLSULFATE 10 MG/10 ML VIAL ONE; -ONDANSETRON HCL INJ/PF 4 MG/2 ML SDV ONE; -PHENYLEPHRINE HCL INJ/PF 10 MG/1 ML SDV ONE; -PROMETHAZINE HCL INJ 25 MG/1 ML VIAL IV PRN; -PROPOFOL INJ 200 MG/20 ML VIAL IV ONE; -RINGERS SOLUTION,LACTATED 1,000 ML IV PRN; -ROCURONIUM BROMIDE INJ 50 MG/5 ML VIAL IV ONE; -SUCCINYLCHOLINE CHLORIDE INJ 200 MG/10 ML VIAL ONE; +TRIAMCINOLONE ACETONIDE INJ 40 MG/1 ML VIAL ONE
--- NOTE | 2020-01-24 09:17 | Operative Report ---
Operative Report DATE OF SURGERY: 01/24/20 PREOPERATIVE DIAGNOSIS: Right hip impingement POSTOPERATIVE DIAGNOSIS: Right hip impingement OPERATION: Right intra-articular fluoroscopically guided hip injection SURGEON: SAMMI FIGUEROA JR ANESTHESIA: Local COMPLICATIONS: none ESTIMATED BLOOD LOSS: none PROCEDURE: Patient is been having severe right pain that is debilitating. We discussed risks and benefits in the office and the patient agreed to proceed with a hip injection. This serves the purpose of both being diagnostic as well as thera peutic and helping to determine the source of their pain. They understood and after signing operative informed consent we proceeded with a hip injection in the hospital under fluoroscopic guidance. The patient was brought into the fluoroscopic suite and laid supine on the table. The site was marked and prepped in standard sterile fashion. A timeout was performed. Approximately 2 cc of lidocaine were utilized to anesthetize the injection site. Following this a 22-gauge spinal needle was introduced into the right hip joint and confirmed with fluoroscopy. Contrast dye was injected and found to be intracapsular. Following this 1 mL of 40 g of Kenalog in conjunction with 1 cc of 2% lidocaine and 1 cc of quarter percent Marcaine were injected into the hip. A sterile Band-Aid was then placed and the patient was assisted off the fluoroscopic table. They tolerated the procedure well.
== END ==
LOC: RAD 07:56
PROVIDERS: ATTEND Orthopaedic Surgery
DX: M25.851 Other specified joint disorders, right hip (principal)
CPT/HCPCS: 20610; 77002; J3490 ×3; J3301

== ENCOUNTER 2020-03-16 16:43 | Inpatient (IN) | payer MEDICARE, MEDICAID ==
[2020-03-16] MEDS ORDERED: METHYLPREDNISOLONE INJ 125 MG/2 ML SDV IV ONE (17:47)
[2020-03-16] MEDS ORDERED: IPRATROPIUM/ALBUTEROL 0.5-2.5 MG/3 ML AMPUL NEB ONE (17:47)
--- NOTE | 2020-03-16 17:47 | ER Document Report ---
ED Medical Screen (RME) - General Chief Complaint: Fever Stated Complaint: COUGH,WEAKNESS,FEVER Time Seen by Provider: 03/16/20 17:42 Primary Care Provider: WHIT PHELPS FNP-C [Primary Care Provider] - Follow up as needed Mode of Arrival: Wheelchair Information source: Patient Notes: HPI; 45-year-old female past medical history significant for COPD presents to [facility] emergency room with worsening cough for the past 4 days. Running fevers of 103.6 Tylenol Motrin with minimal relief. Last dose 2 hours prior to arrival. States she uses oxygen at night but has had to use it during the day due to the shortness of breath. She denies any chest pain. She denies any COVID-19 exposure. PE: Alert and oriented x3. Lungs with rhonchi and wheezes throughout. No ra les. Heart: Tachycardic without murmurs, rubs, gallops I have greeted and performed a rapid initial assessment of this patient. A comprehensive ED assessment and evaluation of the patient, analysis of test results and completion of the medical decision making process will be conducted by additional ED providers. I have specifically instructed the patient or family members with the patient to immediately return to any nursing staff should anything change in the patient's condition or with their chief complaint. TRAVEL OUTSIDE OF THE [place] IN LAST 30 DAYS: No - Related Data Allergies/Adverse Reactions: acetaminophen [From Fioricet] Allergy (Intermediate, Verified 01/01/20 21:15) Hives butalbital [From Fioricet] Allergy (Intermediate, Verified 01/01/20 21:15) Hives caffeine [From Fioricet] Allergy (Intermediate, Verified 01/01/20 21:15) Hives Past Medical History - Past Medical History Cardiac Medical History: Reports: Hx Hypertension Denies: Hx Coronary Artery Disease, Hx Heart Attack Pulmonary Medical History: Reports: Hx Asthma, Hx Bronchitis, Hx COPD, Hx Pneumonia Neurological Medical History: Denies: Hx Cerebrovascular Accident, Hx Seizures Endocrine Medical History: Reports: Hx Diabetes Mellitus Type 2 Renal/ Medical History: Reports: Hx Kidney Stones - 2007. Denies: Hx Peritoneal Dialysis Musculoskeltal Medical History: Denies Hx Arthritis, Reports Hx Musculoskeletal Deformity, Reports Hx Musculoskeletal Trauma Skin Medical History: Reports Hx Cellulitis, Reports Hx MRSA Psychiatric Medical History: Reports: Hx Anxiety Infectious Medical History: Reports: Hx MRSA Past Surgical History: Reports: Hx Adenoidectomy, Hx Section, Hx Cholecystectomy, Hx Dilation and Curettage, Hx Hysterectomy, Hx Kidney (Renal Surgery) - Lithotripsy 11/26, Hx Tonsillectomy, Hx Tubal Ligation, Hx Urinary Tract Surgery - Bladder sling - Immunizations Immunizations up to date: Yes Hx Diphtheria, Pertussis, Tetanus Vaccination: Yes - 2015 Physical Exam - Vital signs Vitals: Temp Pulse Resp BP Pulse Ox 98.6 F 111 H 32 H 150/73 H 89 L 03/16/20 16:47 03/16/20 16:47 03/16/20 16:47 03/16/20 16:47 03/16/20 16:47 Course - Vital Signs Vital signs: Temp Pulse Resp BP Pulse Ox 98.6 F 111 H 32 H 150/73 H 89 L 03/16/20 16:47 03/16/20 16:47 03/16/20 16:47 03/16/20 16:47 03/16/20 16:47 Doctor's Discharge - Discharge Referrals: WHIT PHELPS FNP-C [Primary Care Provider] - Follow up as needed
--- NOTE | 2020-03-16 19:26 | RADIOLOGY REPORT (SQ) ---
EXAM DESCRIPTION: CHEST SINGLE VIEW IMAGES COMPLETED DATE/TIME: 03/16/2020 6:58 pm REASON FOR STUDY: cough COMPARISON: 10/01/2018 EXAM PARAMETERS: NUMBER OF VIEWS: One view. TECHNIQUE: Single frontal radiographic view of the chest acquired. RADIATION DOSE: NA LIMITATIONS: None. FINDINGS: LUNGS AND PLEURA: Bibasilar airspace opacities, left greater than right. No pleural effus ion or pneumothorax. MEDIASTINUM AND HILAR STRUCTURES: No masses. Contour normal. HEART AND VASCULAR STRUCTURES: Heart normal in size. Normal vasculature. BONES: No acute findings. HARDWARE: None in the chest. OTHER: No other significant finding. IMPRESSION: In the appropriate clinical setting, findings are consistent with multi lobar pneumonia. TECHNICAL DOCUMENTATION: JOB ID: [id number] 2010 [employer]- All Rights Reserved Reading location - IP/workstation name: [email or web address]
[2020-03-16 20:05] LABS: ABSOLUTE BASOPHILS # (AUTO) 0.1 10^3/uL (0.0-0.2); ABSOLUTE EOSINOPHILS # (AUTO) 0.6 10^3/uL (0.0-0.6); ABSOLUTE LYMPHOCYTES (AUTO) 2.2 10^3/uL (0.5-4.7); ABSOLUTE NEUT (AUTO) 11.5 10^3/uL (1.7-8.2); BASOPHILS % (AUTO) 0.5 % (0-2); EOSINOPHILS % (AUTO) 4.1 % (0-6); HEMATOCRIT 36.2 % (36.0-47.0); HEMOGLOBIN 12.3 g/dL (12.0-15.5); LYMPHOCYTES % (AUTO) 14.5 % (13-45); MEAN CORPUSCULAR HEMOGLOBIN 29.9 pg (27.0-33.4); MEAN CORPUSCULAR HGB CONC 33.9 g/dL (32.0-36.0); MEAN CORPUSCULAR VOLUME 88 fl (80-97); MONOCYTES % (AUTO) 6.7 % (3-13); PLATELET COUNT 364 10^3/uL (150-450); RED BLOOD COUNT 4.11 10^6/uL (3.72-5.28); SEGMENTED NEUTROPHILS % (AUTO) 74.2 % (42-78); TOTAL CELLS COUNTED % (AUTO) 100 %; WHITE BLOOD COUNT 15.5 10^3/uL (4.0-10.5)
[2020-03-16 20:17] LABS: ALBUMIN 3.4 g/dL (3.5-5.0); ALKALINE PHOSPHATASE 118 U/L (38-126); ANION GAP 6 (5-19); ASPARTATE AMINO TRANSFERASE 37 U/L (14-36); BILIRUBIN,DIRECT 0.2 mg/dL (0.0-0.4); BILIRUBIN,TOTAL 0.6 mg/dL (0.2-1.3); BLOOD UREA NITROGEN 5 mg/dL (7-20); CALCIUM 8.5 mg/dL (8.4-10.2); CARBON DIOXIDE 35 mmol/L (22-30); CHLORIDE 92 mmol/L (98-107); GLUCOSE 123 mg/dL (75-110); POTASSIUM 3.6 mmol/L (3.6-5.0); TOTAL PROTEIN 7.2 g/dL (6.3-8.2)
[2020-03-16] MEDS ORDERED: AZITHROMYCIN INJ 500 MG VIAL IV ONE (20:20)
[2020-03-16] MEDS ORDERED: NORMAL SALINE 1000 ML 1,500 ML IV ONE (21:12)
[2020-03-16] MEDS ORDERED: CEFTRIAXONE 1 GM/D5W RTU 1 GM/50 ML RTUPB IV ONE (21:13)
[2020-03-16 21:16] LABS: ARTERIAL BLOOD BASE EXCESS 3.4 mmol/L; ARTERIAL BLOOD FIO2 ROOM AIR; ARTERIAL BLOOD H2CO3 0.88 mmol/L (1.05-1.35); ARTERIAL BLOOD O2 SATURATION 95.8 % (94-98); ARTERIAL BLOOD PCO2 29.1 mmHg (35-45); ARTERIAL BLOOD PH 7.55 (7.35-7.45); ARTERIAL BLOOD PO2 67.9 mmHg (80-100); ARTERIAL BLOOD TOTAL CO2 25.9 mmol/L (21-25)
[2020-03-16 21:28] LABS: INTERNATIONAL RATION (INR) 1.01; PROTHROMBIN TIME 13.5 SEC (11.4-15.4)
--- NOTE | 2020-03-16 22:32 | ER Document Report ---
ED General - General Chief Complaint: Shortness Of Breath Stated Complaint: COUGH,WEAKNESS,FEVER Time Seen by Provider: 03/16/20 17:42 Primary Care Provider: LIZETH PHAN MD [Primary Care Provider] - Follow up as needed Mode of Arrival: Wheelchair Notes: Patient presents to the ER for evaluation of dry cough with fever, congestion, body aches, chills, shortness of breath x4 days. The patient is a COPD patient and routinely uses oxygen at night only. The patient states her had upper respiratory symptoms approximately 4 days prior to her symptom onset. The never ran a fever or had any shortness of breath. She has had no known exposures to COVID-19. Nursing notes reviewed and past medical, social, and family histories reviewed and validated. TRAVEL OUTSIDE OF THE [place] IN LAST 30 DAYS: No - Related Data Allergies/Adverse Reactions: acetaminophen [From Fioricet] Allergy (Intermediate, Verified 03/16/20 19:57) Hives butalbital [From Fioricet] Allergy (Intermediate, Verified 03/16/20 19:57) Hives caffeine [From Fioricet] Allergy (Intermediate, Verified 03/16/20 19:57) Hives Home Medications: lisinopril 20mg po qam, amlodipine 5mg po qam, oxycodone 10mg QID, omeprazole 20mg po daily, furosemide, gabapentin Past Medical History - General Information source: Patient - Social History Smoking Status: Current Every Day Smoker Cigarette use (# per day): Yes - 2PPD Chew tobacco use (# tins/day): No Smoking Education Provided: Yes Frequency of alcohol use: None Drug Abuse: None Lives with: Family Family History: Arthritis, CAD, CVA, DM, Hyperlipidemia, Hypertension Patient has suicidal ideation: No Patient has homicidal ideation: No - Past Medical History Cardiac Medical History: Reports: Hx Hypertension Denies: Hx Coronary Artery Disease, Hx Heart Attack Pulmonary Medical History: Reports: Hx Asthma, Hx Bronchitis, Hx COPD, Hx Pneumonia EENT Medical History: Reports: None Neurological Medical History: Denies: Hx Cerebrovascular Accident, Hx Seizures Endocrine Medical History: Reports: Hx Diabetes Mellitus Type 2 Renal/ Medical History: Reports: Hx Kidney Stones - 2008 Malignancy Medical History: Reports: None GI Medical History: Reports: Hx Gastroesophageal Reflux Disease Musculoskeletal Medical History: Reports Hx Musculoskeletal Deformity, Reports Hx Musculoskeletal Trauma Skin Medical History: Reports Hx Cellulitis, Reports Hx MRSA Psychiatric Medical History: Reports: Hx Anxiety Traumatic Medical History: Reports: None Infectious Medical History: Reports: Hx MRSA Past Surgical History: Reports: Hx Adenoidectomy, Hx Section - x1, Hx Cholecystectomy, Hx Dilation and Curettage, Hx Hysterectomy, Hx Kidney (Renal Surgery) - Lithotripsy 11/26, Hx Tonsillectomy - adenoids, Hx Tubal Ligation, Hx Urinary Tract Surgery - Bladder sling - Immunizations Immunizations up to date: Yes Hx Diphtheria, Pertussis, Tetanus Vaccination: Yes - 2015 Review of Systems - Review of Systems Notes: Constitutional: Positive for fever. HENT: Negative for sore throat. Eyes: Negative for visual changes. Cardiovascular: Negative for chest pain. Respiratory: Positive for cough. Positive for shortness of breath. Gastrointestinal: Negative for abdominal pain, vomiting or diarrhea. Genitourinary: Negative for dysuria. Musculoskeletal: Negative for back pain. Skin: Negative for rash. Neurological: Negative for headaches, weakness or numbness. 10 point ROS negative except as marked above and in HPI. Physical Exam - Vital signs Vitals: Temp Pulse Resp BP Pulse Ox 98.6 F 111 H 32 H 150/73 H 89 L 03/16/20 16:47 03/16/20 16:47 03/16/20 16:47 03/16/20 16:47 03/16/20 16:47 - Notes Notes: CONSTITUTIONAL: The patient is illappearing. She is in mild distress. She is morbidly obese. SKIN: Warm, dry, and intact without rash EYES: Extraocular movements are grossly intact, clear conjunctiva HENT: Normocephalic, atraumatic, moist mucus membranes NECK: No obvious swelling, normal range of motion PULMONARY: Mildly labored breathing. Breath sounds diminished bilaterally. No respiratory distress or stridor. CARDIOVASCULAR: Regular rate. No murmurs, rubs, gallops. Distal extremities are warm and well perfused. ABDOMINAL: Soft, nontender NEUROLOGIC: Normal speech, moves all extremities. MUSCULOSKELETAL: No gross deformities, atraumatic PSYCHIATRIC: Normal mood and affect Course - Vital Signs Vital signs: Temp Pulse Resp BP Pulse Ox 99.8 F 111 H 25 H 136/77 H 95 03/16/20 19:57 03/16/20 16:47 03/16/20 21:02 03/16/20 21:02 03/16/20 21:02 - Laboratory Results Result Diagrams: 03/16/20 19:36 03/16/20 19:36 Laboratory Results Interpreted: 03/16/20 03/16/20 03/16/20 19:36 19:36 21:06 WBC 15.5 H RDW 15.0 H Absolute Neuts (auto) 11.5 H Carbonic Acid 0.88 L ABG pH 7.55 H ABG pCO2 29.1 L ABG pO2 67.9 L ABG HCO3 25.0 H ABG Total CO2 25.9 H Sodium 132.8 L Chloride 92 L Carbon Dioxide 35 H BUN 5 L Glucose 123 H AST 37 H Albumin 3.4 L Critical Laboratory Results Reviewed: No Critical Results - Radiology Results Critical Radiology Results Reviewed: No Critical Results - Consults Hospitalist consult Time consulted: 22:00 Reason for consultation: 03/16/20 22:00 This case was discussed with Dr. Cosby who is agreed to evaluate the patient in the emergency room for admission. He asked that we perform a send out COVID-19 swab given the patient's symptoms, abnormal CXR and negative rapid test. Discharge - Discharge Clinical Impression: Multilobar lung infiltrate COPD (chronic obstructive pulmonary disease) Qualifiers: COPD type: unspecified COPD Qualified Code(s): J44.9 - Chronic obstructive pulmonary disease, unspecified Condition: Stable Disposition: ADMITTED INPATIENT Admitting Provider: Harjeet (Hospitalist) Unit Admitted: Medical Floor - Covid floor Referrals: LIZETH PHAN MD [Primary Care Provider] - Follow up as needed
[2020-03-16] MEDS ORDERED: MORPHINE SULFATE 10 MG/ML INJ IV ONE (23:10)
--- NOTE | 2020-03-16 23:57 | RADIOLOGY REPORT (SQ) ---
EXAM DESCRIPTION: CTA CHEST CLINICAL HISTORY: 45 years Female; hyoxemia TECHNIQUE: CT angiogram of the chest using intravenous contrast.. MIP reconstructions were performed. All CT scans at this facility use dose modulation, iterative reconstruction, and/or weight based dosing when appropriate to reduce radiation dose to as low as reasonably achievable. COMPARISON: CT of the chest September 24, 2018 FINDINGS: Chest: Vascular: Contrast bolus is suboptimal. However, there is no evidence of pulmonary artery embolization seen bilaterally. Thoracic aorta is of normal caliber. No aneurysm or dissection. Lungs: Lung volumes are low and there is extensive peripheral patchy interstitial and groundglass infiltrate bilaterally. This is peripheral and nodular and present throughout both upper and lower lobes. Findings are concerning for multifocal viral pneumonia. No pneumothorax. No pleural effusion. Mediastinum: Heart size is within normal limits. There is a sliding hiatal hernia. Air is seen in the distal esophagus suggesting gastroesophageal reflux. Thyroid gland is normal. There are small nonspecific mediastinal lymph nodes which are stable when compared to the previous exam. Bones and soft tissues: No acute osseous abnormality. The appearance is stable. Soft tissues of the chest wall are unremarkable. Upper Abdomen: Visualized portion of the upper abdomen is unremarkable. IMPRESSION: 1. No evidence of pulmonary artery embolization. 2. Interval development of extensive peripheral nodular groundglass infiltrate bilaterally. Commonly reported imaging features of COVID pneumonia are present. Other processes such as influenza pneumonia and organizing pneumonia, as can be seen with drug toxicity and connective tissue disease, can cause similar imaging pattern. [PneTyp]. 3. Small sliding hiatal hernia. Possible gastroesophageal reflux.
[2020-03-17] MEDS ORDERED: ONDANSETRON 4 MG TAB.RAPDIS PO PRN (00:11)
[2020-03-17] MEDS ORDERED: PROMETHAZINE HCL 25 MG SUPP.RECT PR PRN (00:11)
[2020-03-17] MEDS ORDERED: MAG HYDROX/AL HYDROX/SIMETH SUSP 30 ML UDCUP PO PRN (00:11)
[2020-03-17] MEDS ORDERED: TEMAZEPAM 7.5 MG CAPSULE PO PRN (00:11)
[2020-03-17] MEDS ORDERED: ONDANSETRON HCL INJ/PF 4 MG/2 ML SDV IV PRN (00:11)
[2020-03-17] MEDS ORDERED: MAGNESIUM HYDROXIDE SUSP 30 ML UDCUP PO PRN (00:11)
[2020-03-17 00:34] LABS: C-REACTIVE PROTEIN 219.3 mg/L (<10.0)
[2020-03-17] MEDS: IPRATROPIUM/ALBUTEROL 0.5-2.5 MG/3 ML AMPUL NEB PRN ×2 (00:39→06:49)
[2020-03-17 00:54] LABS: FERRITIN 59.2 ng/mL (6.2-137.0)
--- NOTE | 2020-03-17 00:54 | PDOC H&P ---
History of Present Illness Admission Date/PCP: 03/16/20 22:59 LIZETH PHAN MD History of Present Illness: DINH RAMSEY is a 45 year old female with past medical history of oxygen dependent COPD, hypertension, obesity, CHF, opioid dependency due to chronic back pain, presenting to ED complaining of subjective fever, cough, generalized body aches, chills, shortness of breath for the last 4 days. Denies any recent hospitalization, travel, or previous history of pneumonia, has not been exposed to anybody with COVID-19 infection, stating that her had cough a week ago but he improved and his children were also coughing couple of weeks ago and both of them tested negative for COVID-19, in ED she was noted to be tachypneic and tachycardic, with low-grade fever, chest x-ray obtained which showed multifocal pneumonia, suspicion was raised for COVID-19 infection, however initial serology was negative, given multifocal pneumonia and presentation COVID-19 serology was repeated to make sure it was not a false negative, repeat COVID-19 test was negative again. CTA chest was also obtained which was negative for PE and positive for multilobar pneumonia. Other than fever, cough, body aches, chills or shortness of breath patient denies any chest pain, nausea, vomiting, abdominal pain, diarrhea, constipation or any urinary symptoms. Past Medical History Cardiac Medical History: Reports: Hypertension Denies: Coronary Artery Disease, Myocardial Infarction Pulmonary Medical History: Reports: Asthma, Bronchitis, Chronic Obstructive Pulmonary Disease (COPD), Pneumonia EENT Medical History: Reports: None Neurological Medical History: Denies: Seizures Endocrine Medical History: Reports: Diabetes Mellitus Type 2 Malignancy Medical History: Reports: None GI Medical History: Reports: Gastroesophageal Reflux Disease Musculoskeltal Medical History: Denies: Arthritis Traumatic Medical History: Reports: None Hematology: Denies: Anemia Infectious Medical History: Reports: Methicillin-Resistant Staph Aureus Past Surgical History Past Surgical History: Reports: Adenoidectomy, Section - x1, Cholecystectomy, Hysterectomy, Tonsillectomy - adenoids, Tubal Ligation Social History Lives with: Family Smoking Status: Current Every Day Smoker Electronic Cigarette use?: No Family History Family History: Arthritis, CAD, CVA, DM, Hyperlipidemia, Hypertension Parental Family History Reviewed: Yes Children Family History Reviewed: Yes Sibling(s) Family History Reviewed.: Yes Medication/Allergy Home Medications: Lisinopril 20 mg PO QAM 07/18/17 Omeprazole 40 mg PO QAM 07/18/17 Gabapentin [Neurontin 300 mg Capsule] 300 mg PO DAILY 09/20/18 Oxycodone HCl/Acetaminophen [Oxycodone-Acetaminophen 10-325] 1 each PO Q6H PRN 09/20/18 Furosemide [Lasix 20 mg Tablet] 20 mg PO QAM #30 tablet 09/27/18 Albuterol Sulfate [Proair HFA Inhalation Aerosol 8.5 gm MDI] 2 puff IH Q4H PRN 11/16/18 Albuterol Sulfate [Ventolin 0.083% Neb 2.5 mg/3 mL Ampul] 2.5 mg NEB Q3HP PRN 11/16/18 Gabapentin [Neurontin 300 mg Capsule] 600 mg PO QHS 11/16/18 Ibuprofen [Motrin 800 mg Tablet] 800 mg PO Q8HP PRN #60 tablet 11/17/18 Oxycodone HCl/Acetaminophen [Percocet 5-325 mg Tablet] 1 tab PO Q6HP PRN #20 t ablet 11/17/18 Ondansetron [Zofran Odt 4 mg Tablet] 1 - 2 tab PO Q4H PRN #15 tab.rapdis 12/23/18 Oxycodone HCl [Oxy-Ir 5 mg Tablet] 5 mg PO Q4HP PRN #10 tablet 12/23/18 Cyclobenzaprine HCl [Flexeril 10 mg Tablet] 10 mg PO TIDP PRN #15 tab 01/01/20 Prednisone [Deltasone 20 mg Tablet] See Protocol PO DAILY 9 Days #18 tablet 01/01/20 Allergies/Adverse Reactions: acetaminophen [From Fioricet] Allergy (Intermediate, Verified 03/16/20 19:57) Hives butalbital [From Fioricet] Allergy (Intermediate, Verified 03/16/20 19:57) Hives caffeine [From Fioricet] Allergy (Intermediate, Verified 03/16/20 19:57) Hives Review of Systems Review of Systems: as per hpi Physical Exam Vital Signs: Temp Pulse Resp BP Pulse Ox 99.8 F 111 H 25 H 136/77 H 95 03/16/20 19:57 03/16/20 16:47 03/16/20 21:02 03/16/20 21:02 03/16/20 21:02 Intake & Output 03/15/20 03/16/20 03/17/20 06:59 06:59 06:59 Intake Total 250 Balance 250 Weight 122.7 kg General appearance: PRESENT: mild distress, morbidly obese, well-nourished Head exam: PRESENT: atraumatic, normocephalic Respiratory exam: PRESENT: crackles, tachypnea. ABSENT: rales, rhonchi, wheezes Cardiovascular exam: PRESENT: RRR. ABSENT: diastolic murmur, rubs, systolic murmur Pulses: PRESENT: normal dorsalis pedis pul GI/Abdominal exam: PRESENT: normal bowel sounds, soft. ABSENT: distended, guarding, mass, organolmegaly, rebound, tenderness Extremities exam: PRESENT: full ROM. ABSENT: calf tenderness, clubbing, pedal edema Neurological exam: PRESENT: alert, awake, oriented to person, oriented to place, oriented to time, oriented to situation, CN II-XII grossly intact. ABSENT: motor sensory deficit Results Laboratory Results: 03/16/20 19:36 03/16/20 19:36 03/16/20 03/16/20 03/16/20 19:36 19:36 20:41 WBC 15.5 H RBC 4.11 Hgb 12.3 Hct 36.2 MCV 88 MCH 29.9 MCHC 33.9 RDW 15.0 H Plt Count 364 Seg Neutrophils % 74.2 Carbonic Acid HCO3/H2CO3 Ratio ABG pH ABG pCO2 ABG pO2 ABG HCO3 ABG O2 Saturation ABG Base Excess FiO2 Sodium 132.8 L Potassium 3.6 Chloride 92 L Carbon Dioxide 35 H Anion Gap 6 BUN 5 L Creatinine 0.58 Est GFR ( Amer) > 60 Glucose 123 H Lactic Acid 1.2 Calcium 8.5 Total Bilirubin 0.6 AST 37 H Alkaline Phosphatase 118 Total Protein 7.2 Albumin 3.4 L 03/16/20 21:06 WBC RBC Hgb Hct MCV MCH MCHC RDW Plt Count Seg Neutrophils % Carbonic Acid 0.88 L HCO3/H2CO3 Ratio 28:1 ABG pH 7.55 H ABG pCO2 29.1 L ABG pO2 67.9 L ABG HCO3 25.0 H ABG O2 Saturation 95.8 ABG Base Excess 3.4 FiO2 ROOM AIR Sodium Potassium Chloride Carbon Dioxide Anion Gap BUN Creatinine Est GFR ( Amer) Glucose Lactic Acid Calcium Total Bilirubin AST Alkaline Phosphatase Total Protein Albumin Impressions: Chest/Abdomen CTA 03/16/20 00:00 IMPRESSION: 1. No evidence of pulmonary artery embolization. 2. Interval development of extensive peripheral nodular groundglass infiltrate bilaterally. Commonly reported imaging features of COVID pneumonia are present. Other processes such as influenza pneumonia and organizing pneumonia, as can be seen with drug toxicity and connective tissue disease, can cause similar imaging pattern. [PneTyp]. 3. Small sliding hiatal hernia. Possible gastroesophageal reflux. Chest X-Ray 03/16/20 17:46 IMPRESSION: In the appropriate clinical setting, findings are consistent with multi lobar pneumonia. Assessment and Plan - Diagnosis (1) Acute respiratory failure with hypoxemia Is this a current diagnosis for this admission?: Yes Plan: Most likely due to multifocal pneumonia likely community-acquired as patient denies any recent hospitalization. COVID-19 negative x2. Chest x-ray positive for multifocal pneumonia. CTA negative for PE. Positive for multifocal pneumonia. Admit to floor, broad-spectrum empiric IV antibiotics, steroids, duo nebs, blood culture, sputum culture. (2) Multifocal pneumonia Is this a current diagnosis for this admission?: Yes Plan: Plan as per #1. (3) Morbid obesity Is this a current diagnosis for this admission?: Yes Plan: BMI 49.5. Will obtain TSH. Diet and lifestyle modification recommended. (4) Opioid dependence with current use Is this a current diagnosis for this admission?: Yes Plan: Chronic opioid dependency due to chronic back pain. Resume home meds. Monitor for fall respiratory depression. (5) COPD (chronic obstructive pulmonary disease) Qualifiers: COPD type: unspecified COPD Qualified Code(s): J44.9 - Chronic obstructive pulmonary disease, unspecified Is this a current diagnosis for this admission?: Yes Plan: History of oxygen dependent COPD, 2 L nasal cannula as needed. Current daily smoker. Does not appear to be acutely exacerbated on this admission. Continue LAMA, LABA, ICS, as needed DuoNebs, supplemental oxygen, flutter valve and incentive spirometry. (6) Tobacco abuse Is this a current diagnosis for this admission?: Yes Plan: Counseled on quitting. NicoDerm patch will be provided. - Time Time Spent with patient: 35 or more minutes Anticipated Discharge Disposition: Home, Self Care Anticipated Discharge Timeframe: within 72 hours
[2020-03-17] MEDS: OXYCODONE HCL IR 5 MG TABLET PO PRN ×4 (03:33→21:16)
[2020-03-17] MEDS: HEPARIN SOD (PORCINE) 5,000 UNIT/ML 1 ML VIAL SUBCUT SCH ×3 (05:27→21:15)
[2020-03-17] MEDS: IPRATROPIUM/ALBUTEROL 0.5-2.5 MG/3 ML AMPUL NEB SCH ×3 (08:58→21:08)
[2020-03-17] MEDS: LISINOPRIL 10 MG TABLET PO SCH (09:25)
[2020-03-17] MEDS: PREDNISONE 20 MG TABLET PO SCH (09:25)
[2020-03-17] MEDS: CEFTRIAXONE 1 GM/D5W RTU 1 GM/50 ML RTUPB IV SCH (09:25)
[2020-03-17] MEDS: FUROSEMIDE 20 MG TABLET PO SCH (09:25)
[2020-03-17] MEDS: FAMOTIDINE 20 MG TABLET PO SCH ×2 (09:26→21:16)
[2020-03-17] MEDS: AZITHROMYCIN 250 MG TABLET PO SCH (09:26)
[2020-03-17] MEDS ORDERED: DOCUSATE SODIUM 100 MG CAPSULE PO SCH (10:00)
[2020-03-17] MEDS ORDERED: GABAPENTIN 300 MG CAPSULE PO SCH (10:00)
[2020-03-17] MEDS: FLUTICASONE/UMECLIDIN/VILANTER 100-62.5-25 MCG/DOSE IH SCH (10:22)
[2020-03-17] MEDS: GUAIFENESIN/D-METHORPHAN (200-20 MG) SYRUP 10 ML PO PRN ×2 (13:12→21:17)
[2020-03-17] MEDS: GABAPENTIN 300 MG CAPSULE PO SCH (17:12)
[2020-03-17] MEDS: CODEINE SULF 15 MG TABLET PO PRN (20:43)
[2020-03-17] MEDS: BENZOCAINE/MENTHOL SORE THROAT LOZENGE BUCCAL PRN (21:15)
[2020-03-17] MEDS: GUAIFENESIN 600 MG TABLET.SA PO SCH (21:16)
[2020-03-17] MEDS: NICOTINE 21 MG/24 HR PATCH.TD24 TD PRN (21:19)
[2020-03-17] MEDS ORDERED: GABAPENTIN 400 MG CAPSULE PO SCH (22:00)
[2020-03-18] MEDS: GUAIFENESIN/D-METHORPHAN (200-20 MG) SYRUP 10 ML PO PRN ×2 (05:02→14:27)
[2020-03-18] MEDS: BENZOCAINE/MENTHOL SORE THROAT LOZENGE BUCCAL PRN ×3 (05:02→19:41)
[2020-03-18] MEDS: HEPARIN SOD (PORCINE) 5,000 UNIT/ML 1 ML VIAL SUBCUT SCH ×3 (05:02→21:58)
[2020-03-18] MEDS: IPRATROPIUM/ALBUTEROL 0.5-2.5 MG/3 ML AMPUL NEB PRN (05:07)
[2020-03-18 06:20] LABS: ABSOLUTE EOSINOPHILS # (AUTO) 0.2 10^3/uL (0.0-0.6); ABSOLUTE LYMPHOCYTES (AUTO) 3.3 10^3/uL (0.5-4.7); ABSOLUTE MONOCYTES (AUTO) 0.8 10^3/uL (0.1-1.4); ABSOLUTE NEUT (AUTO) 14.6 10^3/uL (1.7-8.2); BASOPHILS % (AUTO) 0.3 % (0-2); HEMATOCRIT 33.4 % (36.0-47.0); HEMOGLOBIN 11.2 g/dL (12.0-15.5); LYMPHOCYTES % (AUTO) 17.3 % (13-45); MEAN CORPUSCULAR HEMOGLOBIN 29.8 pg (27.0-33.4); MEAN CORPUSCULAR HGB CONC 33.5 g/dL (32.0-36.0); MEAN CORPUSCULAR VOLUME 89 fl (80-97); MONOCYTES % (AUTO) 4.3 % (3-13); PLATELET COUNT 430 10^3/uL (150-450); RED BLOOD COUNT 3.75 10^6/uL (3.72-5.28); RED CELL DISTRIBUTION WIDTH 14.8 % (11.5-14.0); SEGMENTED NEUTROPHILS % (AUTO) 77.1 % (42-78); TOTAL CELLS COUNTED % (AUTO) 100 %; WHITE BLOOD COUNT 18.9 10^3/uL (4.0-10.5)
[2020-03-18 06:40] LABS: ALBUMIN 3.1 g/dL (3.5-5.0); ALKALINE PHOSPHATASE 92 U/L (38-126); ANION GAP 6 (5-19); ASPARTATE AMINO TRANSFERASE 24 U/L (14-36); BILIRUBIN,DIRECT 0.3 mg/dL (0.0-0.4); BILIRUBIN,TOTAL 0.5 mg/dL (0.2-1.3); BLOOD UREA NITROGEN 19 mg/dL (7-20); CALCIUM 8.5 mg/dL (8.4-10.2); CARBON DIOXIDE 32 mmol/L (22-30); CHLORIDE 97 mmol/L (98-107); CHOLESTEROL 140.26 mg/dL (0-200); GLUCOSE 207 mg/dL (75-110); PHOSPHORUS 3.9 mg/dL (2.5-4.5); POTASSIUM 3.6 mmol/L (3.6-5.0); TOTAL PROTEIN 6.7 g/dL (6.3-8.2); TRIGLYCERIDES 177 mg/dL (<150)
[2020-03-18 06:51] LABS: DIRECT LDL 92 mg/dL (<100)
[2020-03-18 06:54] LABS: FREE T3 2.53 pg/mL (2.77-5.27); VLDL CHOLESTEROL 35.4 mg/dL (10-31)
[2020-03-18 07:08] LABS: THYROID STIMULATING HORMONE 4.34 uIU/mL (0.47-4.68)
[2020-03-18] MEDS: OXYCODONE HCL IR 5 MG TABLET PO PRN ×3 (07:15→20:45)
[2020-03-18] MEDS: CEFTRIAXONE 1 GM/D5W RTU 1 GM/50 ML RTUPB IV SCH (09:14)
[2020-03-18] MEDS: GABAPENTIN 300 MG CAPSULE PO SCH ×3 (09:15→17:15)
[2020-03-18] MEDS: PREDNISONE 20 MG TABLET PO SCH (09:15)
[2020-03-18] MEDS: LISINOPRIL 10 MG TABLET PO SCH (09:15)
[2020-03-18] MEDS: CODEINE SULF 15 MG TABLET PO PRN ×3 (09:16→23:36)
[2020-03-18] MEDS: FUROSEMIDE 20 MG TABLET PO SCH (09:16)
[2020-03-18] MEDS: GUAIFENESIN 600 MG TABLET.SA PO SCH ×2 (09:16→21:58)
[2020-03-18] MEDS: FAMOTIDINE 20 MG TABLET PO SCH ×2 (09:16→21:58)
[2020-03-18] MEDS: AZITHROMYCIN 250 MG TABLET PO SCH (09:16)
[2020-03-18] MEDS: FLUTICASONE/UMECLIDIN/VILANTER 100-62.5-25 MCG/DOSE IH SCH (09:17)
[2020-03-18] MEDS: IPRATROPIUM/ALBUTEROL 0.5-2.5 MG/3 ML AMPUL NEB SCH ×3 (09:22→20:54)
[2020-03-18] MEDS: NICOTINE 21 MG/24 HR PATCH.TD24 TD PRN (17:20)
--- NOTE | 2020-03-18 19:47 | PDOC PROGRESS REPORT ---
Subjective Date:: 03/18/20 Subjective:: NAEO. She continues to require supplemental O2. She had desaturations in 70s with coughing fits. Reason For Visit: ACUTE RESPIRATORY FAILURE, PNEUMONIA Physical Exam Vital Signs: Temp Pulse Resp BP Pulse Ox 97.8 F 88 12 129/66 H 96 03/18/20 16:14 03/18/20 16:14 03/18/20 16:14 03/18/20 16:14 03/18/20 16:14 Intake & Output 03/17/20 03/18/20 03/19/20 06:59 06:59 06:59 Intake Total 2737 1672 1413 Output Total 500 1200 2800 Balance 2237 472 -1387 Weight 122.7 kg 120.4 kg General appearance: PRESENT: no acute distress Eye exam: ABSENT: scleral icterus Mouth exam: PRESENT: moist Throat exam: ABSENT: post pharyngeal erythema Neck exam: ABSENT: JVD Respiratory exam: PRESENT: rhonchi. ABSENT: crackles, wheezes Cardiovascular exam: PRESENT: RRR GI/Abdominal exam: PRESENT: normal bowel sounds, soft. ABSENT: tenderness Extremities exam: ABSENT: pedal edema Neurological exam: PRESENT: alert, awake, oriented to person, oriented to place, oriented to time, oriented to situation Psychiatric exam: PRESENT: appropriate affect Skin exam: ABSENT: jaundice Results Laboratory Results: 03/18/20 06:11 03/18/20 06:11 03/18/20 03/18/20 03/18/20 06:11 06:11 06:11 WBC 18.9 H RBC 3.75 Hgb 11.2 L Hct 33.4 L MCV 89 MCH 29.8 MCHC 33.5 RDW 14.8 H Plt Count 430 Seg Neutrophils % 77.1 Sodium 135.2 L Potassium 3.6 Chloride 97 L Carbon Dioxide 32 H Anion Gap 6 BUN 19 Creatinine 0.66 Est GFR ( Amer) > 60 Glucose 207 H Calcium 8.5 Phosphorus 3.9 Magnesium 2.2 Total Bilirubin 0.5 AST 24 Alkaline Phosphatase 92 Total Protein 6.7 Albumin 3.1 L Triglycerides 177 H Cholesterol 140.26 LDL Cholesterol Direct 92 VLDL Cholesterol 35.4 H HDL Cholesterol 24 L TSH 4.34 Free T3 pg/mL 2.53 L Impressions: Chest/Abdomen CTA 03/16/20 00:00 IMPRESSION: 1. No evidence of pulmonary artery embolization. 2. Interval development of extensive peripheral nodular groundglass infiltrate bilaterally. Commonly reported imaging features of COVID pneumonia are present. Other processes such as influenza pneumonia and organizing pneumonia, as can be seen with drug toxicity and connective tissue disease, can cause similar imaging pattern. [PneTyp]. 3. Small sliding hiatal hernia. Possible gastroesophageal reflux. Chest X-Ray 03/16/20 17:46 IMPRESSION: In the appropriate clinical setting, findings are consistent with multi lobar pneumonia. Assessment and Plan - Plan Summary Summary: DINH RAMSEY is a 45 year old female with past medical history of oxygen dependent COPD, hypertension, obesity, CHF, opioid dependency due to chronic back pain, presenting to ED complaining of subjective fever, cough, generalized body aches, chills, shortness of breath for the last 4 days. Denies any recent hospitalization, travel, or previous history of pneumonia, has not been exposed to anybody with COVID-19 infection, stating that her had cough a week ago but he improved and his children were also coughing couple of weeks ago and both of them tested negative for COVID-19, in ED she was noted to be tachypneic and tachycardic, with low-grade fever, chest x-ray obtained which showed multif ocal pneumonia, suspicion was raised for COVID-19 infection, however initial serology was negative, given multifocal pneumonia and presentation COVID-19 serology was repeated to make sure it was not a false negative, repeat COVID-19 test was negative again. CTA chest was also obtained which was negative for PE and positive for multilobar pneumonia. Other than fever, cough, body aches, chills or shortness of breath patient denies any chest pain, nausea, vomiting, abdominal pain, diarrhea, constipation or any urinary symptoms. She is doing well on IV antibiotics and supplemental O2. Several antitussive agents added to regimen, as her coughing spells cause her to desaturate into the 70s even while on O2. Likely discharge home tomorrow as long as she continues to improve clinically. WBC elevated and increased today in comparison to yesterday, likely due to steroids. Repeat CBC in AM. - Time Time Spent with patient: 35 or more minutes Anticipated Discharge Disposition: Home, Self Care Anticipated Discharge Timeframe: within 24 hours
[2020-03-18] MEDS: POLYETHYLENE GLYCOL 3350 POWDER 17 GM/1 PACKET PO SCH (23:05)
[2020-03-19] MEDS: BENZOCAINE/MENTHOL SORE THROAT LOZENGE BUCCAL PRN ×3 (00:19→06:18)
[2020-03-19] MEDS: IPRATROPIUM/ALBUTEROL 0.5-2.5 MG/3 ML AMPUL NEB PRN (04:12)
[2020-03-19] MEDS: OXYCODONE HCL IR 5 MG TABLET PO PRN ×2 (04:14→10:27)
[2020-03-19] MEDS: HEPARIN SOD (PORCINE) 5,000 UNIT/ML 1 ML VIAL SUBCUT SCH (05:59)
[2020-03-19 07:26] LABS: HEMATOCRIT 31.4 % (36.0-47.0); HEMOGLOBIN 10.6 g/dL (12.0-15.5); MEAN CORPUSCULAR HEMOGLOBIN 29.8 pg (27.0-33.4); MEAN CORPUSCULAR HGB CONC 33.7 g/dL (32.0-36.0); MEAN CORPUSCULAR VOLUME 89 fl (80-97); PLATELET COUNT 424 10^3/uL (150-450); RED BLOOD COUNT 3.55 10^6/uL (3.72-5.28); RED CELL DISTRIBUTION WIDTH 14.8 % (11.5-14.0); WHITE BLOOD COUNT 14.9 10^3/uL (4.0-10.5)
[2020-03-19 07:47] LABS: ANION GAP 5 (5-19); BLOOD UREA NITROGEN 16 mg/dL (7-20); CALCIUM 8.1 mg/dL (8.4-10.2); CARBON DIOXIDE 31 mmol/L (22-30); CHLORIDE 96 mmol/L (98-107); GLUCOSE 172 mg/dL (75-110); POTASSIUM 3.9 mmol/L (3.6-5.0)
[2020-03-19] MEDS ORDERED: INFLUENZA QUAD (6MOS+) 2020-21 VAC 0.5 ML SYR IM ONE (08:00)
[2020-03-19] MEDS: IPRATROPIUM/ALBUTEROL 0.5-2.5 MG/3 ML AMPUL NEB SCH (08:17)
[2020-03-19] MEDS: FAMOTIDINE 20 MG TABLET PO SCH (09:30)
[2020-03-19] MEDS: LISINOPRIL 10 MG TABLET PO SCH (09:31)
[2020-03-19] MEDS: GABAPENTIN 300 MG CAPSULE PO SCH (09:31)
[2020-03-19] MEDS: GUAIFENESIN 600 MG TABLET.SA PO SCH (09:32)
[2020-03-19] MEDS: FUROSEMIDE 20 MG TABLET PO SCH (09:32)
[2020-03-19] MEDS: PREDNISONE 20 MG TABLET PO SCH (09:32)
[2020-03-19] MEDS: POLYETHYLENE GLYCOL 3350 POWDER 17 GM/1 PACKET PO SCH (09:32)
[2020-03-19] MEDS: CEFTRIAXONE 1 GM/D5W RTU 1 GM/50 ML RTUPB IV SCH (09:33)
[2020-03-19] MEDS: FLUTICASONE/UMECLIDIN/VILANTER 100-62.5-25 MCG/DOSE IH SCH (09:36)
[2020-03-19] MEDS: AZITHROMYCIN 250 MG TABLET PO SCH (09:37)
[2020-03-19 10:53] VITALS: BP 149/64
--- NOTE | 2020-03-19 20:22 | PDOC DISCHARGE SUMMARY ---
Impression - Admit/DC Date/PCP Admission Date/Primary Care Provider: 03/16/20 22:59 LIZETH PHAN MD Discharge Date: 03/19/20 - Discharge Diagnosis (1) Acute respiratory failure with hypoxemia Is this a current diagnosis for this admission?: Yes (2) COPD (chronic obstructive pulmonary disease) Is this a current diagnosis for this admission?: Yes (3) Morbid obesity Is this a current diagnosis for this admission?: Yes (4) Multifocal pneumonia Is this a current diagnosis for this admission?: Yes (5) Tobacco abuse Is this a current diagnosis for this admission?: Yes - Assessment Summary: DINH RAMSEY is a 45 year old female with past medical history of oxygen dependent COPD, hypertension, obesity, CHF, opioid dependency due to chronic back pain, presenting to ED complaining of subjective fever, cough, generalized body aches, chills, shortness of breath for the last 4 days. Denies any recent hospitalization, travel, or previous history of pneumonia, has not been exposed to anybody with COVID-19 infection, stating that her had cough a week ago but he improved and his children were also coughing couple of weeks ago and both of them tested negative for COVID-19, in ED she was noted to be tachypneic and tachycardic, with low-grade fever, chest x-ray obtained which showed multifocal pneumonia, suspicion was raised for COVID-19 infection, however initial serology was negative, given multifocal pneumonia and presentation COVID-19 serology was repeated to make sure it was not a false negative, repeat COVID-19 test was negative again. CTA chest was also obtained which was negati ve for PE and positive for multilobar pneumonia. Other than fever, cough, body aches, chills or shortness of breath patient denies any chest pain, nausea, vomiting, abdominal pain, diarrhea, constipation or any urinary symptoms. She did well on IV antibiotics and supplemental O2. She was able to be weaned to her Home 2L O2 therapy by the time of discharge. She was discharged home in stable condition. She received extensive counseling on smoking cessation. - Additional Information Resuscitation Status: Full Code Discharge Diet: Cardiac Discharge Activity: Activity As Tolerated Referrals: LIZETH PHAN MD [Primary Care Provider] - 03/25/20 9:15 am Prescriptions: Prednisone [Deltasone 20 mg Tablet] 40 mg PO DAILY #6 tablet Guaifenesin/Dextromethorphan [Guaifenesin Dm 400-20 mg Tab] 1 each PO BID #14 tablet Levofloxacin [Levaquin 750 mg Tablet] 750 mg PO DAILY #5 tablet Nicotine Polacrilex [Nicorette] 2 mg BC Q2HP PRN #60 gum PRN Reason: craving Nicotine [Nicotine Patch] 1 each TD DAILY #28 patch.dysq Home Medications: Oxycodone HCl/Acetaminophen [Oxycodone-Acetaminophen 10-325] 1 each PO Q6H PRN 09/20/18 Albuterol Sulfate [Ventolin 0.083% Neb 2.5 mg/3 mL Ampul] 2.5 mg NEB Q6HP PRN 11/16/18 Gabapentin [Neurontin 300 mg Capsule] 600 mg PO TID 11/16/18 Cyclobenzaprine HCl [Flexeril 10 mg Tablet] 10 mg PO TIDP PRN #15 tab 01/01/20 Amlodipine Besylate [Norvasc 5 mg Tablet] 5 mg PO DAILY 03/17/20 Furosemide [Lasix 20 mg Tablet] 20 mg PO BID 03/17/20 Gabapentin [Neurontin] 600 mg PO TID 03/17/20 Lisinopril [Zestril] 40 mg PO DAILY 03/17/20 Omeprazole 20 mg PO DAILY 03/17/20 Promethazine HCl [Phenergan 25 mg Tablet] 25 mg PO BID 03/17/20 Guaifenesin/Dextromethorphan [Guaifenesin Dm 400-20 mg Tab] 1 each PO BID #14 tablet 03/19/20 Levofloxacin [Levaquin 750 mg Tablet] 750 mg PO DAILY #5 tablet 03/19/20 Nicotine Polacrilex [Nicorette] 2 mg BC Q2HP PRN #60 gum 03/19/20 Nicotine [Nicotine Patch] 1 each TD DAILY #28 patch.dysq 03/19/20 Prednisone [Deltasone 20 mg Tablet] 40 mg PO DAILY #6 tablet 03/19/20 History of Present Illiness History of Present Illness: DINH RAMSEY is a 45 year old female Physical Exam Vital Signs: Temp Pulse Resp BP Pulse Ox 98.0 F 93 15 149/64 H 94 03/19/20 10:52 03/19/20 10:52 03/19/20 10:52 03/19/20 10:52 03/19/20 10:52 Intake & Output 03/18/20 03/19/20 03/20/20 06:59 06:59 06:59 Intake Total 1672 2993 50 Output Total 1200 4500 Balance 472 -1507 50 Weight 120.4 kg 120.2 kg Results Laboratory Results: WBC 14.9 10^3/uL (4.0-10.5) H 03/19/20 05:57 RBC 3.55 10^6/uL (3.72-5.28) L 03/19/20 05:57 Hgb 10.6 g/dL (12.0-15.5) L 03/19/20 05:57 Hct 31.4 % (36.0-47.0) L 03/19/20 05:57 MCV 89 fl (80-97) 03/19/20 05:57 MCH 29.8 pg (27.0-33.4) 03/19/20 05:57 MCHC 33.7 g/dL (32.0-36.0) 03/19/20 05:57 RDW 14.8 % (11.5-14.0) H 03/19/20 05:57 Plt Count 424 10^3/uL (150-450) 03/19/20 05:57 Lymph % (Auto) 17.3 % (13-45) 03/18/20 06:11 [place] % (Auto) 4.3 % (3-13) 03/18/20 06:11 Eos % (Auto) 1.0 % (0-6) 03/18/20 06:11 Baso % (Auto) 0.3 % (0-2) 03/18/20 06:11 Absolute Neuts (auto) 14.6 10^3/uL (1.7-8.2) H 03/18/20 06:11 Absolute Lymphs (auto) 3.3 10^3/uL (0.5-4.7) 03/18/20 06:11 Absolute Monos (auto) 0.8 10^3/uL (0.1-1.4) 03/18/20 06:11 Absolute Eos (auto) 0.2 10^3/uL (0.0-0.6) 03/18/20 06:11 Absolute Basos (auto) 0.0 10^3/uL (0.0-0.2) 03/18/20 06:11 Seg Neutrophils % 77.1 % (42-78) 03/18/20 06:11 ESR 99 mm/hr (0-20) H 03/16/20 19:36 PT 13.5 SEC (11.4-15.4) 03/16/20 19:36 INR 1.01 03/16/20 19:36 D-Dimer 2.92 ug/mL (0.00-0.50) H 03/16/20 19:36 Carbonic Acid 0.88 mmol/L (1.05-1.35) L 03/16/20 21:06 HCO3/H2CO3 Ratio 28:1 03/16/20 21:06 ABG pH 7.55 (7.35-7.45) H 03/16/20 21:06 ABG pCO2 29.1 mmHg (35-45) L 03/16/20 21:06 ABG pO2 67.9 mmHg (80-100) L 03/16/20 21:06 ABG HCO3 25.0 mmol/L (20-24) H 03/16/20 21:06 ABG Total CO2 25.9 mmol/L (21-25) H 03/16/20 21:06 ABG O2 Saturation 95.8 % (94-98) 03/16/20 21:06 ABG Base Excess 3.4 mmol/L 03/16/20 21:06 FiO2 ROOM AIR 03/16/20 21:06 Sodium 132.0 mmol/L (137-145) L 03/19/20 05:57 Potassium 3.9 mmol/L (3.6-5.0) 03/19/20 05:57 Chloride 96 mmol/L (98-107) L 03/19/20 05:57 Carbon Dioxide 31 mmol/L (22-30) H 03/19/20 05:57 Anion Gap 5 (5-19) 03/19/20 05:57 BUN 16 mg/dL (7-20) 03/19/20 05:57 Creatinine 0.67 mg/dL (0.52-1.25) 03/19/20 05:57 Est GFR ( Amer) > 60 (>60) 03/19/20 05:57 Est GFR (MDRD) Non-Af > 60 (>60) 03/19/20 05:57 Glucose 172 mg/dL (75-110) H 03/19/20 05:57 Hemoglobin A1c % 7.7 % (4.7-6.0) H 03/18/20 06:11 Lactic Acid 1.2 mmol/L (0.7-2.1) 03/16/20 20:41 Calcium 8.1 mg/dL (8.4-10.2) L 03/19/20 05:57 Phosphorus 3.9 mg/dL (2.5-4.5) 03/18/20 06:11 Magnesium 2.2 mg/dL (1.6-2.3) 03/18/20 06:11 Ferritin 59.20 ng/mL (6.2-137.0) 03/16/20 23:45 Total Bilirubin 0.5 mg/dL (0.2-1.3) 03/18/20 06:11 Direct Bilirubin 0.3 mg/dL (0.0-0.4) 03/18/20 06:11 Neonat Total Bilirubin Not Reportable 03/18/20 06:11 Neonat Direct Bilirubin Not Reportable 03/18/20 06:11 Neonat Indirect Bili Not Reportable 03/18/20 06:11 AST 24 U/L (14-36) 03/18/20 06:11 ALT 17 U/L (<35) 03/18/20 06:11 Alkaline Phosphatase 92 U/L (38-126) 03/18/20 06:11 Lactate Dehydrogenase 362 U/L (120-246) H 03/16/20 23:45 C-Reactive Protein 219.3 mg/L (<10.0) H 03/16/20 23:45 Total Protein 6.7 g/dL (6.3-8.2) 03/18/20 06:11 Albumin 3.1 g/dL (3.5-5.0) L 03/18/20 06:11 Triglycerides 177 mg/dL (<150) H 03/18/20 06:11 Cholesterol 140.26 mg/dL (0-200) 03/18/20 06:11 LDL Cholesterol Direct 92 mg/dL (<100) 03/18/20 06:11 VLDL Cholesterol 35.4 mg/dL (10-31) H 03/18/20 06:11 HDL Cholesterol 24 mg/dL (>40) L 03/18/20 06:11 TSH 4.34 uIU/mL (0.47-4.68) 03/18/20 06:11 Free T3 pg/mL 2.53 pg/mL (2.77-5.27) L 03/18/20 06:11 [place] Human Metapneumo PCR NOT DETECTED (NOT DETECT) 03/16/20 22:35 Adenovirus (PCR) NOT DETECTED (NOT DETECT) 03/16/20 22:35 B. pertussis DNA (PCR) NOT DETECTED (NOT DETECT) 03/16/20 22:35 B.parapertussis DNA PCR NOT DETECTED (NOT DETECT) 03/16/20 22:35 C. pneumoniae DNA (PCR) NOT DETECTED (NOT DETECT) 03/16/20 22:35 Coronavirus OC43 (PCR) NOT DETECTED (NOT DETECT) 03/16/20 22:35 Coronavirus HKU1 (PCR) NOT DETECTED (NOT DETECT) 03/16/20 22:35 Coronavirus 229E (PCR) NOT DETECTED (NOT DETECT) 03/16/20 22:35 COVID-19 Source Cancelled 03/16/20 22:35 COVID-19 (GER) Cancelled 03/16/20 22:35 Coronavirus NL63 (PCR) NOT DETECTED (NOT DETECT) 03/16/20 22:35 Influenza A (RT-PCR) NEGATIVE (NEGATIVE) 03/16/20 19:36 Influenza A (H1) PCR NOT DETECTED (NOT DETECT) 03/16/20 22:35 Influ A (H1N1/09) PCR NOT DETECTED (NOT DETECT) 03/16/20 22:35 Influenza A (H3) PCR NOT DETECTED (NOT DETECT) 03/16/20 22:35 Influenza Type A (PCR) NOT DETECTED (NOT DETECT) 03/16/20 22:35 Influenza B (RT-PCR) NEGATIVE (NEGATIVE) 03/16/20 19:36 Influenza Type B (PCR) NOT DETECTED (NOT DETECT) 03/16/20 22:35 M. pneumoniae (PCR) NOT DETECTED (NOT DETECT) 03/16/20 22:35 Parainfluenza 1 (PCR) NOT DETECTED (NOT DETECT) 03/16/20 22:35 Parainfluenza 2 (PCR) NOT DETECTED (NOT DETECT) 03/16/20 22:35 Parainfluenza 3 (PCR) NOT DETECTED (NOT DETECT) 03/16/20 22:35 Parainfluenza 4 (PCR) NOT DETECTED (NOT DETECT) 03/16/20 22:35 RSV (RT-PCR) NEGATIVE (NEGATIVE) 03/16/20 19:36 RSV (PCR) NOT DETECTED (NOT DETECT) 03/16/20 22:35 Entero/Rhino (PCR) NOT DETECTED (NOT DETECT) 03/16/20 22:35 SARS-CoV-2 (PCR) NOT DETECTED (NOT DETECT) 03/16/20 22:35 SARS-CoV-2 Rap RNA(RT-PCR) NEGATIVE (NEGATIVE) 03/16/20 19:36 Impressions: Chest/Abdomen CTA 03/16/20 00:00 IMPRESSION: 1. No evidence of pulmonary artery embolization. 2. Interval development of extensive peripheral nodular groundglass infiltrate bilaterally. Commonly reported imaging features of COVID pneumonia are present. Other processes such as influenza pneumonia and organizing pneumonia, as can be seen with drug toxicity and connective tissue disease, can cause similar imaging pattern. [PneTyp]. 3. Small sliding hiatal hernia. Possible gastroesophageal reflux. Chest X-Ray 03/16/20 17:46 IMPRESSION: In the appropriate clinical setting, findings are consistent with multi lobar pneumonia. Stroke Is this a Stroke Patient?: No Acute Heart Failure Is this a Heart Failure Patient?: No
== END 2020-03-19 11:25 | disposition home or self-care (01) | DRG 193 ==
LOC: ER 16:43 → EH 22:59 → 4W 03-17 02:14
PROVIDERS: ADMIT Internal Medicine; ATTEND Hospitalist
DX: J18.9 Pneumonia, unspecified organism (principal); J96.01 Acute respiratory failure with hypoxia; J44.0 Chronic obstructive pulmonary disease with (acute) lower respiratory infection; Z68.42 Body mass index [BMI] 45.0-49.9, adult; Z20.828 Contact with and (suspected) exposure to other viral communicable diseases; E66.01 Morbid (severe) obesity due to excess calories; F17.210 Nicotine dependence, cigarettes, uncomplicated; I10 Essential (primary) hypertension; G89.29 Other chronic pain; M54.9 Dorsalgia, unspecified; E11.9 Type 2 diabetes mellitus without complications; K21.9 Gastro-esophageal reflux disease without esophagitis; Z88.6 Allergy status to analgesic agent; Z79.52 Long term (current) use of systemic steroids; Z91.048 Other nonmedicinal substance allergy status; Z23 Encounter for immunization; Z99.81 Dependence on supplemental oxygen; Z79.891 Long term (current) use of opiate analgesic; Z79.899 Other long term (current) drug therapy; Z86.14 Personal history of Methicillin resistant Staphylococcus aureus infection; Z82.3 Family history of stroke; Z83.3 Family history of diabetes mellitus; Z82.49 Family history of ischemic heart disease and other diseases of the circulatory system
CPT/HCPCS: 0202U; 36415; 71045; 71275; 80048; 80053; 80061; 82728; 82803; 83036; 83605; 83615; 83735; 84100; 84443; 84481; 85025; 85027; 85379; 85610; 85652; 86140; 87040; 90471; 90686; 94640; 94799; 96365; 96375; 99285; 0241U; C9803; G0008; J0456; J0696; J1644; J2270; J2405; J2930; J3490; J7030; J7512